=== PATIENT | female | born 1945 | race Caucasian/White ===

== ENCOUNTER 2017-07-15 12:21 | Emergency (ER) | payer MEDICARE ==
[2017-07-15 12:31] VITALS: BP 225/104
--- NOTE | 2017-07-15 12:41 | UC ---
UC General HPI - HPI Summary HPI Summary: 72 yo female with the acute onset of left sided weakness and trouble speaking on the evening of 07/11 no BATES no CP no palpitations no sob states she doesn't like to see doctors and hasn't seen one for years - History of Current Complaint Chief Complaint: UCAlteredMentalStatus Stated Complaint: STROKE SYMPTOMS Time Seen by Provider: 07/15/17 12:22 Hx Obtained From: Patient Onset/Duration: Sudden Onset, Lasting Days Onset Severity: Moderate Current Severity: Moderate Pain Intensity: 0 Associated Signs & Symptoms: Positive: Other - left sided - Allergy/Home Medications Allergies/Adverse Reactions: Allergies Allergy/AdvReac Type Severity Reaction Status Date / Time No Known Allergies Allergy Verified 07/15/17 12:39 Home Medications: Home Medications Arthritis 07/15/17 [History] NK [No Home Medications Reported] 07/15/17 [History Confirmed 07/15/17] PMH/Surg Hx/FS Hx/Imm Hx Previously Healthy: Yes - Surgical History Surgical History: None - Family History Known Family History: Positive: Cardiac Disease, Hypertension, Diabetes - Social History Alcohol Use: Daily Alcohol Amount: beer Substance Use Type: None Smoking Status (MU): Former Smoker Review of Systems Constitutional: Negative Skin: Negative Eyes: Negative ENT: Negative Respiratory: Negative Cardiovascular: Negative Gastrointestinal: Negative Genitourinary: Negative Motor: Negative Neurovascular: Negative Musculoskeletal: Negative Neurological: Weakness Psychological: Negative Is Patient Immunocompromised?: No All Other Systems Reviewed And Are Negative: Yes Physical Exam Triage Information Reviewed: Yes Appearance: Well-Appearing, No Pain Distress, Well-Nourished Vital Signs: Initial Vital Signs Temp 97.5 F 07/15/17 12:28 Pulse 115 07/15/17 12:28 Resp 20 07/15/17 12:28 BP 225/104 07/15/17 12:28 Pulse Ox 99 07/15/17 12:28 Vital Signs Reviewed: Yes Eyes: Positive: Conjunctiva Clear ENT: Positive: Hearing grossly normal. Negative: Nasal congestion, Nasal drainage, Trismus, Muffled voice, Hoarse voice Neck: Positive: Supple, Other: - no bruits Respiratory: Positive: Lungs clear, Normal breath sounds, No respiratory distress Cardiovascular: Positive: RRR, Tachycardia. Negative: No Murmur Abdomen Description: Positive: Nontender, No Organomegaly, Soft Musculoskeletal: Positive: ROM Intact, No Edema Neurological: Positive: Alert, Other: - left hemiplegia with mild left facial droop Psychological Exam: Normal Skin Exam: Normal Diagnostics - EKG Cardiac Rate: NL, Tachycardia Cardiac Rhythm: Sinus: Normal Ectopy: None - LVH with strain pattern, [facility] ST Segment: Non-Specific Course/Dx - Course Course Of Treatment: offerred EMS transport to the ER as the most prudent option. both she and her son refuse EMS tranport. son will drive. Dr. Horner aware - Differential Dx - Multi-Symptom Provider Diagnoses: probable CVA. Hypertension Discharge - Sign-Out/Discharge Documenting (check all that apply): Discharge - Discharge Plan Condition: Guarded Disposition: TRANS HIGHER LVL OF CARE FAC Referrals: No Primary Care Phys,NOPCP [Primary Care Provider] - Additional Instructions: To [facility] ER Dr. Horner is awaiting your arrival - Billing Disposition and Condition Condition: GUARDED Disposition: EMTALA
== END 2017-07-15 12:46 | disposition short-term general hospital (02) ==
LOC: UCEAST 12:21
DX: R53.1 Weakness (principal); R29.810 Facial weakness; G81.94 Hemiplegia, unspecified affecting left nondominant side; I10 Essential (primary) hypertension; Z87.891 Personal history of nicotine dependence
CPT/HCPCS: 93005; 99211; G0463

== ENCOUNTER 2017-07-15 13:07 | Inpatient (IN) | payer MEDICARE ==
[2017-07-15] MEDS ORDERED: hydrALAZINE IV* 20 MG/ML VIAL IV SLOW PU ONE (13:42)
[2017-07-15] MEDS ORDERED: NS 0.9% 1000 ML* 1,000 ML IV SCH (13:45)
[2017-07-15 14:08] LABS: ABS Basophils 0.1 10^3/ul (0-0.2); ABS Eosinophils 0 10^3/ul (0-0.6); ABS Lymphocytes 1.7 10^3/ul (1.0-4.8); ABS Monocytes 0.7 10^3/ul (0-0.8); ABS Neutrophils 6.9 10^3/ul (1.5-7.7); ABS Nucleated RBC 0 10^3/ul; Eosinophil % 0.3 % (0-6); Hematocrit 40 % (35-47); Hemoglobin 13.4 g/dl (12.0-16.0); Lymphocyte % 18.3 % (25-47); Mean Corpuscular HGB Conc 34 g/dl (31-36); Mean Corpuscular Hemoglobin 29 pg (27-31); Mean Corpuscular Volume 86 fL (80-97); Mean Platelet Volume 8.7 um3 (7.4-10.4); Nucleated Red Blood Cells % 0; Platelet Count 258 10^3/ul (150-450); Red Blood Count 4.59 10^6/ul (4.0-5.4); Red Cell Distribution Width 14 % (10.5-15); White Blood Count 9.3 10^3/ul (3.5-10.8)
[2017-07-15 14:16] LABS: INR 0.89 (0.77-1.02)
--- NOTE | 2017-07-15 14:24 | RAD ---
HISTORY: Left-sided weakness, slurred speech COMPARISONS: None TECHNIQUE: Multiple contiguous axial CT scans were obtained of the head without intravenous contrast. FINDINGS: HEMORRHAGE/INFARCT: There is no hemorrhage or acute infarct. MASSES/SHIFT: There is no mass or shift. EXTRA-AXIAL SPACES: There are no extra-axial fluid collections. SULCI AND VENTRICLES: The sulci and ventricles are normal in size and position for the patient's stated age. CEREBRUM: There is mild hypoattenuation of the periventricular and subcortical white matter. BRAINSTEM: There are no focal parenchymal abnormalities. CEREBELLUM: There are no focal parenchymal abnormalities. VESSELS: The vessels are grossly normal. PARANASAL SINUSES: The paranasal sinuses are clear. ORBITS: The orbits are unremarkable. BONES AND SOFT TISSUE: No bone or soft tissue abnormalities are noted. OTHER: None IMPRESSION: NO ACUTE INTRACRANIAL PATHOLOGY. MILD CHRONIC SMALL VESSEL ISCHEMIC CHANGES.
[2017-07-15 14:26] LABS: EGFR Non-African American 57.5 (>60)
[2017-07-15] MEDS ORDERED: Iodixanol* (CONTRAST) 320 MG/ML 100 ML SDV IV ONE (14:44)
[2017-07-15] MEDS ORDERED: Aspirin SUPP* 300 MG PR ONE (14:50)
[2017-07-15] MEDS ORDERED: Aspirin TAB* 325 MG PO ONE (14:51)
[2017-07-15] MEDS ORDERED: Acetaminophen TAB* 325 MG PO PRN (15:06)
[2017-07-15] MEDS ORDERED: Ondansetron INJ* 2 MG/ML VIAL IV PRN (15:06)
[2017-07-15] MEDS ORDERED: hydrALAZINE IV* 20 MG/ML VIAL IV SLOW PU PRN (15:14)
[2017-07-15] MEDS ORDERED: LORazepam INJ* 2 MG/ML 1 ML VIAL IV PUSH ONE (15:20)
[2017-07-15 16:00] LABS: Urine Appearance Clear; Urine Blood Negative (Negative); Urine Color Yellow; Urine Ketones Negative (Negative); Urine Protein Negative (Negative); Urine Specific Gravity 1.021 (1.010-1.030); Urine Urobilinogen Negative (Negative)
--- NOTE | 2017-07-15 16:25 | RAD ---
CPT II: CPT II Codes: 3100F INDICATION: Left-sided weakness and difficulty speaking COMPARISON: Same day CT of the brain that does not reveal any acute abnormalities. TECHNIQUE: A CT angiogram of the head and neck was performed with 80 cc of Visipaque 320. Contiguous axial sections were obtained from the thoracic inlet through the [place] of [place]. Images were reconstructed in the sagittal, coronal planes and in a 3-D volume rendered format. The distal cervical internal carotid artery diameter is used as the denominater for stenosis measurement. CTA NECK: The common and internal carotid arteries are patent without hemodynamically significant stenosis. Right: Below the carotid bulb the common carotid artery measures 6 mm in diameter. There is partially calcified mixed attenuation atherosclerosis at the carotid bulb narrowing the lumen to approximately 4 mm. This corresponds to approximately 33% degree stenosis. Left: Below the carotid bulb the common carotid artery measures 6 mm in diameter. There is partially calcified mixed attenuation atherosclerosis at the carotid bulb narrowing the lumen to approximately 4 mm. This corresponds to 33% degree stenosis. The vertebral arteries are patent without gross abnormality. CTA of the brain: The internal carotid, anterior and middle cerebral arteries appear are patent without high grade stenosis or occlusion. The vertebral, basilar and posterior cerebral arteries appear patent without high grade stenosis or occlusion. The [place] is complete with bilateral posterior communicating arteries identified. No focal luminal filling defect, aneurysm or vascular malformation is seen. NON-ARTERIAL FINDINGS: The left lobe of the thyroid there are 2 low-attenuation foci measuring 6 and 13 mm respectively. There are centrilobular emphysematous changes of the bilateral lung apices with a small degree of apical scarring. Mild degenerative changes of the cervical spine include loss of intervertebral disc height. IMPRESSION: 1. Mixed attenuation atherosclerosis of the bilateral carotid bulbs causes approximately 33% degree stenosis bilaterally. 2. There is no definite filling defect or other acute vascular abnormality identifiable within the limitations of CT angiography.
--- NOTE | 2017-07-15 16:45 | RAD ---
HISTORY: Left-sided weakness and facial droop COMPARISONS: Same day CTA of the head and neck TECHNIQUE: The following sequences were obtained of the head: Sagittal T1-weighted images, axial T2-weighted images, axial FLAIR images, axial susceptibility weighted images, axial T1-weighted images. Additionally, axial diffusion-weighted images were obtained with calculated apparent diffusion coefficients.. FINDINGS: HEMORRHAGE/INFARCT: There is no hemorrhage or acute infarct. MASSES/SHIFT: There is no mass or shift. EXTRA-AXIAL SPACES/MENINGES: There are no extra-axial fluid collections. SULCI AND VENTRICLES: The sulci and ventricles are normal in size and position for the patient's stated age. CEREBRUM: On the axial T2-weighted FLAIR images there are numerable subcentimeter T2 bright foci as well as increased signal in the periventricular white matter tracts. None of these correspond to increased signal on diffusion-weighted imaging to indicate acute focal infarction. BRAINSTEM: On diffusion-weighted imaging there is bright signal measuring up to 8 x 13 mm at the right thang (image 10). On the T2-weighted images there is bright signal at the right thang measuring up to 1 x 1.7 cm in the axial plane (image 10 of 30). CEREBELLUM: There are no focal parenchymal abnormalities. The cerebellar tonsils are normal in size and position. SELLA: The sella is normal. PINEAL: The pineal region is clear. CP ANGLE/TEMPORAL BONES: The labyrinthine structures are grossly normal. VESSELS: Normal flow-voids are noted within the visualized vertebral vasculature. DIFFUSION ABNORMALITIES: There are no diffusion abnormalities. PARANASAL SINUSES/MASTOIDS: The paranasal sinuses are clear. ORBITS: The orbits are unremarkable. BONES AND SOFT TISSUE: No bone or soft tissue abnormalities are noted. IMPRESSION: 1. MR FINDINGS ARE CONSISTENT WITH ACUTE FOCAL INFARCTION INVOLVING THE RIGHT THANG. 2. ADDITIONAL FINDINGS ARE CONSISTENT WITH CHRONIC MICROVASCULAR DISEASE.
--- NOTE | 2017-07-15 20:15 | ED ---
Angelo Quesada Jennifer, scribed for Florentin Ribera on 07/15/17 at 1330 . Neurological HPI - HPI Summary HPI Summary: The patient is a 72 year old female who was sent by CC for left sided weakness and difficulty speaking since four days ago. The patient reports that four nights ago at about 22:00, she had difficulty speaking. She went to sleep and woke up with continued difficulty speaking and left sided weakness. She explains that the symptoms have gotten worse, and she now has more difficulty with movement because she feels so weak. The patient adds that she has not seen a PMD in 35 years. - History of Current Complaint Chief Complaint: EDNeurologicalDeficit Stated Complaint: POSSIBLE STROKE-CC TRANSFER Time Seen by Provider: 07/15/17 13:14 Hx Obtained From: Patient Onset/Duration: Sudden Onset, Started days ago - 4 days, Still Present, Worse Since - yesterday Timing: Constant Onset Severity: Mild Current Severity: Moderate Neurological Deficit Location: LUE, LLE Pain Intensity: 0 Pain Scale Used: 0-10 Numeric Character: Other: - left sided weakness, difficulty with speech Aggravating: Nothing Alleviating: Nothing Associated Signs and Symptoms: Positive: Weakness - left sided, Impaired Speech - Allergy/Home Medications Allergies/Adverse Reactions: Allergies Allergy/AdvReac Type Severity Reaction Status Date / Time No Known Allergies Allergy Verified 07/15/17 13:09 PMH/Surg Hx/FS Hx/Imm Hx Endocrine/Hematology History: Denies: Hx Diabetes Cardiovascular History: Denies: Hx Hypertension Musculoskeletal History: Reports: Hx Arthritis - Cancer History Cancer Type, Location and Year: arthritis Infectious Disease History: No Infectious Disease History: Denies: Traveled Outside the [place] in Last 30 Days - Family History Known Family History: Positive: Cardiac Disease, Hypertension, Diabetes - Social History Alcohol Use: Daily Alcohol Amount: 2 beers daily Substance Use Type: Reports: None Smoking Status (MU): Former Smoker Review of Systems Negative: Fever Positive: Weakness - left sided, Slurred Speech All Other Systems Reviewed And Are Negative: Yes Physical Exam - Summary Physical Exam Summary: Appearance: Well appearing, Skin: warm, dry, reflects adequate perfusion Head/face: normal Eyes: EOMI, NANETTE ENT: normal Neck: supple, non-tender Respiratory: CTA, breath sounds present Cardiovascular: RRR, pulses symmetrical ~ Abdomen: non-tender, soft Bowel: present Musculoskeletal: pulse present b/l Neuro: A&Ox3 with left hemiplegia. Triage Information Reviewed: Yes Vital Signs On Initial Exam: Initial Vitals Temp Pulse Resp BP Pulse Ox 97.6 F 105 20 222/98 98 07/15/17 13:09 07/15/17 13:09 07/15/17 13:09 07/15/17 13:09 07/15/17 13:09 Vital Signs Reviewed: Yes Diagnostics - Vital Signs Vital Signs Temp Pulse Resp BP Pulse Ox 07/15/17 13:09 97.6 F 105 20 222/98 98 - Laboratory Lab Results: Lab Results 07/15/17 07/15/17 07/15/17 Range/Units 14:00 14:00 14:00 WBC 9.3 (3.5-10.8) 10^3/ul RBC 4.59 (4.0-5.4) 10^6/ul Hgb 13.4 (12.0-16.0) g/dl Hct 40 (35-47) % MCV 86 (80-97) fL MCH 29 (27-31) pg MCHC 34 (31-36) g/dl RDW 14 (10.5-15) % Plt Count 258 (150-450) 10^3/ul MPV 8.7 (7.4-10.4) um3 Neut % (Auto) 73.5 (38-83) % Lymph % (Auto) 18.3 L (25-47) % Ness % (Auto) 7.3 H (0-7) % Eos % (Auto) 0.3 (0-6) % Baso % (Auto) 0.6 (0-2) % Absolute Neuts (auto) 6.9 (1.5-7.7) 10^3/ul Absolute Lymphs (auto) 1.7 (1.0-4.8) 10^3/ul Absolute Monos (auto) 0.7 (0-0.8) 10^3/ul Absolute Eos (auto) 0 (0-0.6) 10^3/ul Absolute Basos (auto) 0.1 (0-0.2) 10^3/ul Absolute Nucleated RBC 0 10^3/ul Nucleated RBC % 0 INR (Anticoag Therapy) 0.89 (0.77-1.02) APTT 30.9 (26.0-36.3) seconds Sodium 137 L (139-145) mmol/L Potassium 3.9 (3.5-5.0) mmol/L Chloride 101 (101-111) mmol/L Carbon Dioxide 25 (22-32) mmol/L Anion Gap 11 (2-11) mmol/L BUN 16 (6-24) mg/dL Creatinine 0.96 H (0.51-0.95) mg/dL Est GFR ( Amer) 73.9 (>60) Est GFR (Non-Af Amer) 57.5 (>60) BUN/Creatinine Ratio 16.7 (8-20) Glucose 149 H (70-100) mg/dL Calcium 9.6 (8.6-10.3) mg/dL Total Bilirubin 0.40 (0.2-1.0) mg/dL AST 25 (13-39) U/L ALT 21 (7-52) U/L Alkaline Phosphatase 57 (34-104) U/L Total Protein 6.8 (6.4-8.9) g/dL Albumin 4.1 (3.2-5.2) g/dL Globulin 2.7 (2-4) g/dL Albumin/Globulin Ratio 1.5 (1-3) Result Diagrams: 07/15/17 14:00 07/15/17 14:00 Lab Statement: Any lab studies that have been ordered have been reviewed, and results considered in the medical decision making process. - CT Brain CT CT Interpretation: No Acute Changes - NO ACUTE INTRACRANIAL PATHOLOGY. MILD CHRONIC SMALL VESSEL ISCHEMIC CHANGES. Dr. Ribera has reviewed this report. CT Interpretation Completed By: Radiologist Head CTA CT Interpretation: Positive (See Comments) - 1. Mixed attenuation atherosclerosis of the bilateral carotid bulbs causes approximately 33% degree stenosis bilaterally. 2. There is no definite filling defect or other acute vascular abnormality identifiable within the limitations of CT angiography. Dr. Ribera has reviewed this report. CT Interpretation Completed By: Radiologist - EKG 13:42 Cardiac Rate: NL EKG Rhythm: Sinus Rhythm EKG Comparison: No Significant Change - Additional Comments Diagnostic Additional Comments: Brain MRI. Interpreted by a radiologist. IMPRESSION: 1. MR FINDINGS ARE CONSISTENT WITH ACUTE FOCAL INFARCTION INVOLVING THE RIGHT THANG. 2. ADDITIONAL FINDINGS ARE CONSISTENT WITH CHRONIC MICROVASCULAR DISEASE. Dr. Ribera has reviewed this report. NIH Scale - NIH Scale Level of Consciousness: Alert/Keenly Responsive Ask Patient the Month and His/Her Age: Both Correct Ask Pt to Open/Close Eyes and Acquisition Cost Estimator/Release Non-Paretic Hand: Both Correctly Best Gaze (Only Horizontal Eye Movement): Normal Visual Field Testing: No Visual Loss Facial Paresis-Pt to Smile & Close Eyes or Grimace Symmetry: Partial Paralysis Motor Function - Right Arm: No Drift-Holds 10 Seconds Motor Function - Left Arm: Drifts LT 10 seconds Motor Function - Right Leg: No Drift-Holds 10 Seconds Motor Function - Left Leg: Drifts LT 10 seconds Limb Ataxia-Must be out of Proportion to Weakness Present: Present in One Limb Sensory (Use Pinprick to Test Arms/Legs/Trunk/Face): Normal Best Language (Describe Picture, Name Items): Some Loss Dysarthria (Read Several Words): Slurs Some Words Extinction and Inattention: No Abnormality Total Score: 7 Course/Dx - Course Course Of Treatment: The patient is a 72 year old female who was sent by for left sided weakness and difficulty speaking since four days ago. Bloodwork and urinalysis were obtained. EKG, CT Brain were obtained. The patient is diagnosed with CVA and hypertension. The patient was admitted to [facility] by Dr. Muñoz. - Differential Dx Differential Diagnoses Neuro: Positive: Cerebrovascular Accident, Hematoma, Intracranial Bleed, Transient Ischemic Attack - Diagnoses Provider Diagnoses: CVA (cerebral vascular accident), HTN (hypertension) - Physician Notifications Discussed Care Of Patient With: Kailee Muñoz Time Discussed With Above Provider: 14:08 Instructed by Provider To: Admit As Inpatient - I also consulted with Dr. Jenkins , neurology, who recommended that I do MRI Brain and CTA Head/Neck. - Critical Care Time Critical Care Time: 30-74 min Discharge - Sign-Out/Discharge Documenting (check all that apply): Discharge - Discharge Plan Condition: Good Disposition: ADMITTED TO [facility] - Billing Disposition and Condition Condition: GOOD Disposition: HOSP-[facility] The documentation as recorded by the Angelo neal Jennifer accurately reflects the service I personally performed and the decisions made by , Florentin Ribera.
--- NOTE | 2017-07-15 20:49 | HP ---
CC: Dr. Jenkins * HISTORY AND PHYSICAL: DATE OF ADMISSION: 07/15/17 PRIMARY CARE PROVIDER: None. CONSULTING NEUROLOGIST: Dr. Jenkins. ATTENDING PHYSICIAN WHILE IN THE HOSPITAL: Kailee Muñoz DO * (report dictated by Wong Smith NP). CHIEF COMPLAINT: 1. Left-sided weakness. 2. Slurred speech. 3. Facial drooping. HISTORY OF PRESENT ILLNESS: Ms. De Paz is a 72-year-old female patient who really has not had any medical care for some time. She only has a history of C- section and tonsillectomy. To her knowledge, she has no medical problems. She says that she only takes a probiotic. She said she noticed on Friday, she had an episode where she was noticing trouble with facial droop and her speech. Her family had noticed this, but she declined coming in to the hospital to be evaluated. She said that she was anxious about what it could be and she thought that hopefully will go away on its own; however, the patient says that things have got progressively worse. She started noticing that she was having left arm weakness, worsening facial droop, worsening trouble with speech. She says that she was concerned because she just was not getting any better. Her son was concerned today because she was much worse than what she was over the weekend and he decided to bring her into the hospital. She came in to the ED today. She denies any recent fevers, chills. No nausea. No vomiting. She denies having any headache. No visual disturbances reported to me. She is reporting the left-sided weakness, the trouble with her speech and facial drooping. She says that she is left-handed, although she does write with her right hand. She denies having any nausea, vomiting, or any diarrhea. She came in to the ED and was evaluated. There was concern for a possible stroke that happened several days ago. We are asked to evaluate for admission. PAST MEDICAL HISTORY: She is denying. PAST SURGICAL HISTORY: She is admitting to and tonsillectomy only. MEDICATIONS: Home meds include probiotic one capsule p.o. daily. ALLERGIES TO MEDICATIONS: Include no known drug allergies. FAMILY HISTORY: She says both her parents had cancers. Her mother had a history of high blood pressures as well. SOCIAL HISTORY: She is a former smoker. She quit 35 years ago. She does drink 2 beers a day. She lives with her son. Surrogate decision maker is her son. REVIEW OF SYSTEMS: There is no documented fever. She denies having any significant weight change. There was no double vision. She denies having any ear discharge. There is no rhinorrhea. No sore throat No thyroid enlargement. She denies having any chest pain. There is no orthopnea. There is no nocturnal dyspnea. She denies having any abdominal pain. There was no nausea. No vomiting. No dysuria. No frequency. There was no seizure. She denies having any loss of consciousness. No pruritus and no skin ulcerations. Review of 14-systems completed, all others negative. PHYSICAL EXAMINATION GENERAL: At this time, Ms. De Paz is a 72-year-old female patient. She is sitting on the ED stretcher. She does not appear to be in any acute distress. VITAL SIGNS: Blood pressure 176/50, pulse 93, respirations 20, O2 sat 96%, temperature 97.6. HEENT: Head: Atraumatic, normocephalic. Eyes: EOMs intact. Sclerae are anicteric and not pale. Throat: Oral mucosa appears to be moist. No oropharyngeal erythema. NECK: Supple. LUNGS: Clear to auscultation. No wheezes, rales, or rhonchi. HEART: Sounds S1, S2. Regular rate and rhythm. No murmurs, rubs, or gallops. ABDOMEN: Soft, flat, and nontender. Bowel sounds are present. EXTREMITIES: Pulses were 2+ throughout. She is able to move the right side with 5/5 strength, left side upper extremity is about 3/5 strength, lower extremity is about 3/5 strength as well. NEUROLOGICAL: She is awake. She is alert. Her speech is slurred, but it is not delayed. There is no aphasia that I could elicit. She does have a facial droop. In addition to this, she is unable to raise the arms on the left side. There is significant amount of weakness. She does have a pronator drift. She has drift to the left leg as well. There is weakness to the left side compared to the right. [id number], she has limb ataxia to the left side. Her peripheral visual smith are intact at this point. EOMs are intact. Her pupils were equal and reactive. There were no other gross focal deficits. SKIN: Intact. DIAGNOSTIC STUDIES/LAB DATA: WBC of 9.3, RBC of 4.59, hemoglobin 13.4, hematocrit of 40, platelet count of 258. The INR was 0.89. PTT of 30.9. Sodium was 137, potassium of 3.9, chloride of 101, bicarb 25, BUN 16, creatinine of 0.96, glucose 149, calcium 9.6. Total bili 0.4, AST 25, ALT 21, alk phos 7, albumin of 4.1. She had imaging here in the ED with starting of the brain CT, which revealed no acute intracranial pathology, mild chronic small vessel ischemic changes. She had an EKG obtained today showing a sinus tachycardia with rate of 103. No ST elevations or T-wave inversions were noted. No previous for comparison. Old medical records were reviewed. ASSESSMENT AND PLAN: Ms. De Paz is a 72-year-old female patient coming in to the ED today with complaints of left-sided weakness, slurred speech, and a facial droop. On evaluation today, there was concern for cerebrovascular accident. She will be admitted under inpatient status for: 1. Cerebrovascular accident. At this point, she did pass her bedside swallow evaluation. I will place her on baby aspirin and I will order PT and OT as well. I will also order an MRI of the brain, CTA of the head and neck, which has been ordered. We will order an echo with bubble study. We will get frequent neuro checks every 2 hours. Start her on a baby aspirin. Check her lipids and A1c. We will place her on telemetry to monitor for any arrhythmias and Neurology has been consulted and we will continue to follow closely. 2. Hypertension. Again, the blood pressure when she came in was 220, it responded nicely to hydralazine. I am going to try to keep her systolics less than 180. We will need to consider starting her on p.o. antihypertensives. I am going to wait to do this until we have CTA head and neck back and the MRIs back probably in the next 24 hours. We will consider starting some antihypertensive for long-term management. 3. DVT prophylaxis: We will place her on heparin and SCDs. Again, these symptoms started on Friday, chances of hemorrhagic conversion are low at this point. I did touch base with Dr. Jenkins about this. Again, she was in agreement heparin should be safe at this point. So, we will go ahead and put her on heparin subcu for DVT prophylaxis and SCDs. 4. Fluids, electrolytes and nutrition: She can have a heart-healthy diet. 5. Code status is full code. TIME SPENT: On admission was 60 minutes, greater than half of the time was spent [id number] with the patient obtaining my history and physical, other half of the time was spent going over the plan of care with the patient and implementing the plan of care. I did discuss the plan of care with my attending, Dr. Muñoz, she is in agreement. WONG SMITH, ZACHERY [id number]/CPS #: [id number] [id number]
[2017-07-15] MEDS: Heparin VIAL(*) 5000 UNITS/ML VIAL (FIVE THOUSAND) SUBCUT SCH (22:29)
[2017-07-16] MEDS: Heparin VIAL(*) 5000 UNITS/ML VIAL (FIVE THOUSAND) SUBCUT SCH ×3 (05:41→22:27)
[2017-07-16 07:22] LABS: ABS Basophils 0.1 10^3/ul (0-0.2); ABS Eosinophils 0.3 10^3/ul (0-0.6); ABS Lymphocytes 3.1 10^3/ul (1.0-4.8); ABS Monocytes 0.9 10^3/ul (0-0.8); ABS Neutrophils 4.9 10^3/ul (1.5-7.7); ABS Nucleated RBC 0 10^3/ul; Eosinophil % 2.7 % (0-6); Hematocrit 41 % (35-47); Hemoglobin 13.6 g/dl (12.0-16.0); Lymphocyte % 33.6 % (25-47); Mean Corpuscular HGB Conc 33 g/dl (31-36); Mean Corpuscular Hemoglobin 29 pg (27-31); Mean Corpuscular Volume 87 fL (80-97); Mean Platelet Volume 8.8 um3 (7.4-10.4); Nucleated Red Blood Cells % 0.1; Platelet Count 273 10^3/ul (150-450); Red Blood Count 4.69 10^6/ul (4.0-5.4); Red Cell Distribution Width 14 % (10.5-15); White Blood Count 9.2 10^3/ul (3.5-10.8)
[2017-07-16 07:31] LABS: INR 0.9 (0.77-1.02)
[2017-07-16 07:49] LABS: EGFR Non-African American 66.1 (>60)
[2017-07-16] MEDS: Aspirin 81 mg CHEW TAB* 81 MG TAB.CHEW PO SCH (10:01)
--- NOTE | 2017-07-16 12:19 | PN ---
Subjective Date of Service: 07/16/17 Interval History: Patient feels she is better today. Speech is better. No new c/o. Objective Active Medications: Acetaminophen (Tylenol Tab*) 650 mg PO Q4H PRN PRN Reason: FEVER/PAIN Aspirin (Aspirin Low Dose Tab*) 81 mg PO DAILY [facility] Last Admin: 07/16/17 10:01 Dose: 81 mg Atorvastatin Calcium (Lipitor*) 40 mg PO 1700 [facility] Heparin Sodium (Porcine) (Heparin Vial(*)) 5,000 units SUBCUT Q8HR [facility] Last Admin: 07/16/17 05:41 Dose: 5,000 units Ondansetron HCl (Zofran Inj*) 4 mg IV Q6H PRN PRN Reason: NAUSEA Vital Signs - 8 hr 07/16/17 07/16/17 07/16/17 04:27 07:48 08:00 Temperature 97.8 F Pulse Rate 65 84 Respiratory 15 16 Rate Blood Pressure 169/62 172/77 (mmHg) O2 Sat by Pulse Oximetry 07/16/17 08:06 Temperature Pulse Rate Respiratory Rate Blood Pressure (mmHg) O2 Sat by Pulse 98 Oximetry Oxygen Devices in Use Now: None Appearance: Alert, in a chair. In good spirits. Looks comfortable. Eyes: No Scleral Icterus Neck: NL Appearance and Movements; NL JVP, No Thyroid Enlargement, Masses Respiratory: Symmetrical Chest Expansion and Respiratory Effort, Clear to Auscultation, Clear to Percussion Cardiovascular: NL Sounds; No Murmurs; No JVD, RRR, No Edema, - Extremities: No Edema, No Clubbing, Cyanosis, - Skin: No Rash or Ulcers, No Nodules or Sclerosis, - Neurological: Alert and Oriented x 3 - Mild L facial droop. Speech clear, sl hesitant. 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 L leg moves well. No tremor. , NL Sensation Result Diagrams: 07/16/17 06:45 07/16/17 06:45 Additional Lab and Data: Lab Results 07/15/17 07/15/17 07/15/17 Range/Units 14:00 14:00 14:00 WBC 9.3 (3.5-10.8) 10^3/ul RBC 4.59 (4.0-5.4) 10^6/ul Hgb 13.4 (12.0-16.0) g/dl Hct 40 (35-47) % MCV 86 (80-97) fL MCH 29 (27-31) pg MCHC 34 (31-36) g/dl RDW 14 (10.5-15) % Plt Count 258 (150-450) 10^3/ul MPV 8.7 (7.4-10.4) um3 Neut % (Auto) 73.5 (38-83) % Lymph % (Auto) 18.3 L (25-47) % Andrew % (Auto) 7.3 H (0-7) % Eos % (Auto) 0.3 (0-6) % Baso % (Auto) 0.6 (0-2) % Absolute Neuts (auto) 6.9 (1.5-7.7) 10^3/ul Absolute Lymphs (auto) 1.7 (1.0-4.8) 10^3/ul Absolute Monos (auto) 0.7 (0-0.8) 10^3/ul Absolute Eos (auto) 0 (0-0.6) 10^3/ul Absolute Basos (auto) 0.1 (0-0.2) 10^3/ul Absolute Nucleated RBC 0 10^3/ul Nucleated RBC % 0 INR (Anticoag Therapy) 0.89 (0.77-1.02) APTT 30.9 (26.0-36.3) seconds Sodium 137 L (139-145) mmol/L Potassium 3.9 (3.5-5.0) mmol/L Chloride 101 (101-111) mmol/L Carbon Dioxide 25 (22-32) mmol/L Anion Gap 11 (2-11) mmol/L BUN 16 (6-24) mg/dL Creatinine 0.96 H (0.51-0.95) mg/dL Est GFR ( Amer) 73.9 (>60) Est GFR (Non-Af Amer) 57.5 (>60) BUN/Creatinine Ratio 16.7 (8-20) Glucose 149 H (70-100) mg/dL Calcium 9.6 (8.6-10.3) mg/dL Total Bilirubin 0.40 (0.2-1.0) mg/dL AST 25 (13-39) U/L ALT 21 (7-52) U/L Alkaline Phosphatase 57 (34-104) U/L Total Protein 6.8 (6.4-8.9) g/dL Albumin 4.1 (3.2-5.2) g/dL Globulin 2.7 (2-4) g/dL Albumin/Globulin Ratio 1.5 (1-3) Assess/Plan/Problems-Billing Assessment: - Patient Problems (1) CVA (cerebral vascular accident) Current Visit: Yes Status: Acute Code(s): I63.9 - CEREBRAL INFARCTION, UNSPECIFIED SNOMED Code(s): 796894903 Comment: R pontine CVA. Continue PT/OT, ASA. Start atorvastatin 40 mg daioy 07/16. (2) HTN (hypertension) Current Visit: Yes Status: Acute Code(s): I10 - ESSENTIAL (PRIMARY) HYPERTENSION SNOMED Code(s): 64486444 Comment: Start lisinopril 07/17.
--- NOTE | 2017-07-16 12:32 | ECHO ---
Patient: EZEQUIEL RODRÍGUEZ [facility] Rec#: [id number] : 1945 Date: 07/16/2017 Age: 72y Height: 165.1 cm / 65.0 in Weight: 68.04 kg / 150.0 lbs Sex: F BSA: 1.75 Room#: [facility] Admit Date#: 07/15/2017 Type: Inpatient Referring: Wong Smith NP Reading: Jacki Oakes MD Coil Winder Hand: Dianna Gao [facility] Transthoracic Echocardiogram Indication: CVA BP: 169/62 HR: 74 Rhythm: NSR Findings History: Former smoker,HTN. Technical Comments: The study is technically limited due to the patient's smoking history. Completed at 1026. Left Ventricle: The left ventricular chamber size is normal. Moderate to severe concentric left ventricular hypertrophy is observed. Global left ventricular wall motion and contractility are within normal limits. There is normal left ventricular systolic function. The estimated ejection fraction is 60-65%. Abnormal left ventricular diastolic function is observed. The left ventricular diastolic filling pattern is consistent with elevated left ventricular end-diastolic pressure. Left Atrium: The left atrium is mildly dilated. Right Ventricle: The right ventricular cavity size is normal. The right ventricular global systolic function is normal. Right Atrium: The right atrial cavity size is normal. There is no patent foramen ovale visualized. There is no evidence of patent foramen ovale shunting. A patent foramen ovale is not demonstrated with color Doppler and agitated contrast. Aortic Valve: The aortic valve leaflets are mildly thickened. There is evidence of aortic sclerosis without stenosis. There is a trace of aortic regurgitation. There is no evidence of aortic stenosis. Mitral Valve: The mitral valve leaflets appear normal. There is mitral annular calcification. There is trace to mild mitral regurgitation. There is no evidence of mitral stenosis. Tricuspid Valve: The tricuspid valve leaflets are normal. There is trace tricuspid regurgitation. Unable to estimate the right ventricular systolic pressure. There is no tricuspid stenosis. Pulmonic Valve: The pulmonic valve appears normal. There is a trace pulmonic regurgitation. There is no pulmonic stenosis. Pericardium: A pericardial fat pad is visualized. Aorta: There is no dilatation of the ascending aorta. There is no dilatation of the aortic arch. There is no dilation of the aortic root. Pulmonary Artery: The main pulmonary artery appears normal. Venous: The inferior vena cava appears normal in size. There is a greater than 50% respiratory change in the inferior vena cava dimension. Contrast: Normal saline was used as contrast for the bubble study. Intravenous contrast was used to help determine presence of intracardiac shunting. Conclusions Moderate to severe concentric left ventricular hypertrophy is observed. There is normal left ventricular systolic function. The estimated ejection fraction is 60-65%. Abnormal left ventricular diastolic function is observed. The left ventricular diastolic filling pattern is consistent with elevated left ventricular end-diastolic pressure. The right ventricular global systolic function is normal. A patent foramen ovale is not demonstrated with color Doppler and agitated contrast. There is evidence of aortic sclerosis without stenosis. There is a trace of aortic regurgitation. There is trace to mild mitral regurgitation. No prior echo to compare. Measurements Name Value Normal Range RVIDd (AP) 2D 2.4 cm (0.9 - 2.6) RVDdMajor (2D) 2.8 cm (2.2 - 4.4) RAd ISD 4CH 4 cm (3.4 - 4.9) RA (A4C)W 2.1 cm (2.9 - 4.6) IVSd (2D) 1.6 cm (0.6 - 1) LVPWd (2D) 1.7 cm (0.6 - 1) LVIDd (2D) 3.2 cm (3.6 - 5.4) LVIDs (2D) 2.3 cm - LV FS (2D) 29 % (25 - 45) Aortic Annulus 1.9 cm (1.4 - 2.6) Ao root diameter (2D) 3.1 cm (2.1 - 3.5) Ascending Ao 3.1 cm (2.1 - 3.4) Aortic arch 2.9 cm (1.8 - 3.4) Descending Ao 0.6 cm - LA dimension (AP) 2D 4 cm (2.3 - 3.8) LAd ISD 4CH 4.2 cm (2.9 - 5.3) LA ISD 4CH W 3.7 cm (2.5 - 4.5) Name Value Normal Range LA ESV SP 4CH (A/L) 26 ml - LA ESV SP 2CH (A/L) 44 ml - LA ESV BP (A/L) 35 ml - LA ESV BP (A/L) index 20.07 ml/m2 - LA ESV SP 4CH (MOD) 24 ml - LA ESV SP 2CH (MOD) 41 ml - Name Value Normal Range MV E-wave Vmax 1.1 m/sec - MV deceleration time 256 msec - MV A-wave Vmax 1.2 m/sec - MV E:A ratio 0.86 ratio - LV septal e' Vmax 0.05 m/sec - LV lateral e' Vmax 0.07 m/sec - LV E:e' septal ratio 22 ratio - LV E:e' lateral ratio 15.71 ratio - Name Value Normal Range AV Vmax 2 m/sec - AV VTI 48.6 cm - AV peak gradient 15.72 mmHg - AV mean gradient 9.46 mmHg - LVOT Vmax 1.4 m/sec - LVOT VTI 36.6 cm - LVOT peak gradient 7.54 mmHg - LVOT mean gradient 4.04 mmHg - Name Value Normal Range IVC diameter 1 cm - Name Value Normal Range PV Vmax 1 m/sec - PV peak gradient 3.83 mmHg -
[2017-07-16] MEDS: Atorvastatin* 40 MG TAB PO SCH (17:26)
[2017-07-16] MEDS ORDERED: Lisinopril TAB* 5 MG PO ONE (17:48)
--- NOTE | 2017-07-16 20:40 | CONS ---
NEUROLOGY CONSULTATION: DATE OF CONSULT: 07/16/17 REQUESTING PROVIDER: Wong Smith NP REASON FOR CONSULT: Stroke. HISTORY OF PRESENT ILLNESS: Miri De Paz is a 72-year-old woman, who does not seek regular medical care and reports a history only of some arthritis in her left knee and her left hand, who presented to the emergency department with subacute development of left-sided weakness. She reports that Friday she developed difficulty speaking and was hoping it would go away. Over the weekend , she developed difficulty with her left hand, but attributed to her arthritis. She could not close her hand normally. This progressed to more dense left arm weakness as well as facial droop and then she began having difficulty with her left leg and her son brought her in yesterday for evaluation. Her blood pressures were noted to be very high when she was initially in the emergency department, it is high as 223/92. Her NIH Stroke Scale was around 7 and it was suspected that she had a cerebrovascular event. She denies any difficulty swallowing or changes in her vision. She denies any falls at home. She states she lives with her son, but he works during the day. She feels that she has improved since her admission yesterday in terms of her left-sided weakness. She is hopeful that she will be able to go home with outpatient physical therapy. Prior to her admission, the only medication she was taking was a probiotic. She has not had any routine surveillance such as mammograms or colonoscopy. PAST MEDICAL HISTORY: Arthritis, left knee and left hand. HOME MEDICATIONS: Probiotic. ALLERGIES: No known drug allergies. FAMILY HISTORY: Father had prostate and lung cancer and mother had uterine cancer, which spread to the bones. There is also a history of heart attack in the family, but no history of stroke. SOCIAL HISTORY: She quit smoking 35 years ago. She drinks alcohol, but not excessively. She denies any drug use. She lives with her son in a 2-story home. REVIEW OF SYSTEMS: She denies any recent systemic illness. She denies any new skin rashes, chest pain, breathing difficulties, GI symptoms. Otherwise, as per HPI. PHYSICAL EXAM: Vital Signs: Temperature 97.8, blood pressure 172/77, heart rate 84, oxygen saturation 98% on room air. On general examination, she is in no acute distress. She is sitting in a chair by her bedside. Her daughter and 8 month old grandson are present. Her heart is in a regular rate and rhythm. There is a systolic ejection murmur heard best at the right upper sternal border, which radiates to the carotids. Lungs were clear to auscultation bilaterally. There is no significant lower extremity edema. Her skin is intact. On neurologic examination, she is fully awake, alert, and oriented. She is able to describe [employer] picture accurately and reads sentences accurately. She has mild dysarthria. Pupils are equal, round, and reactive from 3 to 2 mm bilaterally. Versions are full without nystagmus. Hickey are full to confrontation. Facial sensation is full and symmetric. She has left lower facial droop, but good activation with smile. Hearing is intact to voice. The palate elevates symmetrically and the tongue appears midline. On motor examination, she has normal bulk in the upper and lower extremities with increased tone in the left arm and leg. Strength is full in the right extremities. She has grade 2 strength throughout of the left upper extremity. Strength is 3 in the left hip flexor, 4+ in the left knee extensor, 4- in the knee flexor, and about a 2 in the left ankle dorsiflexor. Sensation is intact to pinprick in the upper and lower extremities. There is no ataxia on finger-to -nose on the right and it is not testable because of weakness on the left. Reflexes are 2+ in the right arm and leg, 3+ in the left arm and leg with upgoing toe on the left. I did not attempt to ambulate her. DIAGNOSTIC STUDIES/LAB DATA: Her CBC is overall unremarkable. The chemistry panel shows sodium of 138, hemoglobin A1c of 5.7. Triglycerides 147, cholesterol 229, LDL 133, HDL of 67.1. Urinalysis was negative. A noncontrast brain CT was negative for any obvious acute process. Her CT angiogram of the head and neck did not show any significant atherosclerotic disease, no occlusion, no significant stenosis, but incidentally noted were 2 low attenuation foci in the left lobe of the thyroid and emphysematous changes in the upper lungs bilaterally. MRI of the brain was personally reviewed and shows diffusion restriction in the right paramedian kendall. In addition, there is evidence of small vessel disease in the bilateral cerebral hemispheres. Transthoracic echocardiogram showed [id number] concentric LVH with an EF of 60% to 65%. There is abnormal left ventricular diastolic function and elevated left ventricular end diastolic pressure. There is no PFO. IMPRESSION AND PLAN: Miri De Paz is a 72-year-old woman presenting with left- sided weakness, who has had a right pontine stroke. She was very hypertensive on her admission and has remained so. The stroke likely began on Friday and she presented subacutely; therefore, she was not a candidate for tPA. I suspect that she has had unrecognized hypertension based on the distribution of her stroke as well as her findings on her echocardiogram as the most likely etiology for this stroke. She has been started on aspirin 81 mg daily and should continue this. Given her LDL of 133, she has also been started on atorvastatin 40 mg daily. Similarly today, we are going to start her on lisinopril 5 mg daily. I emphasized the importance of rehab with her as she seems quite set on going home and pursuing outpatient physical therapy. However , I think at this point, she appears weak enough and this is probably not the wisest choice for her. I would like to have her evaluated by the [facility] and I have put in a consult for this. In the long-term, she will need to establish with a PCP and should have routine preventative care such as mammogram and colonoscopy. Thank you for this consultation. [id number]/[facility] #: [id number] HERACLIO
[2017-07-17] MEDS: Heparin VIAL(*) 5000 UNITS/ML VIAL (FIVE THOUSAND) SUBCUT SCH ×3 (05:37→21:30)
[2017-07-17] MEDS: Aspirin 81 mg CHEW TAB* 81 MG TAB.CHEW PO SCH (08:16)
[2017-07-17] MEDS: Lisinopril TAB* 5 MG PO SCH (08:16)
--- NOTE | 2017-07-17 14:49 | PN ---
Subjective Date of Service: 07/17/17 Interval History: No new c/o. Patient somewhat disappointed in the pace of her recovery. Objective Active Medications: Acetaminophen (Tylenol Tab*) 650 mg PO Q4H PRN PRN Reason: FEVER/PAIN Aspirin (Aspirin Low Dose Tab*) 81 mg PO DAILY [facility] Last Admin: 07/17/17 08:16 Dose: 81 mg Atorvastatin Calcium (Lipitor*) 40 mg PO 1700 [facility] Last Admin: 07/16/17 17:26 Dose: 40 mg Heparin Sodium (Porcine) (Heparin Vial(*)) 5,000 units SUBCUT Q8HR [facility] Last Admin: 07/17/17 05:37 Dose: 5,000 units Lisinopril (Prinivil Tab*) 5 mg PO DAILY [facility] Last Admin: 07/17/17 08:16 Dose: 5 mg Ondansetron HCl (Zofran Inj*) 4 mg IV Q6H PRN PRN Reason: NAUSEA Vital Signs - 8 hr 07/17/17 07/17/17 07/17/17 07:41 08:00 11:18 Temperature 97.7 F 97.6 F Pulse Rate 78 65 Respiratory 16 16 16 Rate Blood Pressure 152/73 139/54 (mmHg) O2 Sat by Pulse 97 98 Oximetry 07/17/17 14:10 Temperature 97.5 F Pulse Rate 66 Respiratory 20 Rate Blood Pressure 178/82 (mmHg) O2 Sat by Pulse 97 Oximetry Oxygen Devices in Use Now: None Appearance: Alert, partly up in bed. In good spirits. Looks comfortable. Eyes: No Scleral Icterus Respiratory: Symmetrical Chest Expansion and Respiratory Effort, Clear to Auscultation, Clear to Percussion Cardiovascular: NL Sounds; No Murmurs; No JVD, RRR, No Edema Extremities: No Edema, No Clubbing, Cyanosis, - Skin: No Rash or Ulcers, No Nodules or Sclerosis, - Neurological: Alert and Oriented x 3, NL Sensation - Some difficulty word- finding. No tremor. 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 No tremor. , NL Muscle Strength and Tone, - - L arm 2-3/5 strength. Speech sl halting Result Diagrams: 07/16/17 06:45 07/16/17 06:45 Additional Lab and Data: Lab Results 07/15/17 07/15/17 07/15/17 Range/Units 14:00 14:00 14:00 WBC 9.3 (3.5-10.8) 10^3/ul RBC 4.59 (4.0-5.4) 10^6/ul Hgb 13.4 (12.0-16.0) g/dl Hct 40 (35-47) % MCV 86 (80-97) fL MCH 29 (27-31) pg MCHC 34 (31-36) g/dl RDW 14 (10.5-15) % Plt Count 258 (150-450) 10^3/ul MPV 8.7 (7.4-10.4) um3 Neut % (Auto) 73.5 (38-83) % Lymph % (Auto) 18.3 L (25-47) % [place] % (Auto) 7.3 H (0-7) % Eos % (Auto) 0.3 (0-6) % Baso % (Auto) 0.6 (0-2) % Absolute Neuts (auto) 6.9 (1.5-7.7) 10^3/ul Absolute Lymphs (auto) 1.7 (1.0-4.8) 10^3/ul Absolute Monos (auto) 0.7 (0-0.8) 10^3/ul Absolute Eos (auto) 0 (0-0.6) 10^3/ul Absolute Basos (auto) 0.1 (0-0.2) 10^3/ul Absolute Nucleated RBC 0 10^3/ul Nucleated RBC % 0 INR (Anticoag Therapy) 0.89 (0.77-1.02) APTT 30.9 (26.0-36.3) seconds Sodium 137 L (139-145) mmol/L Potassium 3.9 (3.5-5.0) mmol/L Chloride 101 (101-111) mmol/L Carbon Dioxide 25 (22-32) mmol/L Anion Gap 11 (2-11) mmol/L BUN 16 (6-24) mg/dL Creatinine 0.96 H (0.51-0.95) mg/dL Est GFR ( Amer) 73.9 (>60) Est GFR (Non-Af Amer) 57.5 (>60) BUN/Creatinine Ratio 16.7 (8-20) Glucose 149 H (70-100) mg/dL Calcium 9.6 (8.6-10.3) mg/dL Total Bilirubin 0.40 (0.2-1.0) mg/dL AST 25 (13-39) U/L ALT 21 (7-52) U/L Alkaline Phosphatase 57 (34-104) U/L Total Protein 6.8 (6.4-8.9) g/dL Albumin 4.1 (3.2-5.2) g/dL Globulin 2.7 (2-4) g/dL Albumin/Globulin Ratio 1.5 (1-3) Assess/Plan/Problems-Billing Assessment: - Patient Problems (1) CVA (cerebral vascular accident) Current Visit: Yes Status: Acute Code(s): I63.9 - CEREBRAL INFARCTION, UNSPECIFIED SNOMED Code(s): 380198915 Comment: R pontine CVA. Continue PT/OT, ASA. Continue atorvastatin 40 mg daily. Walked 140 feet with PT 07/17. (2) HTN (hypertension) Current Visit: Yes Status: Acute Code(s): I10 - ESSENTIAL (PRIMARY) HYPERTENSION SNOMED Code(s): 27831233 Comment: Started lisinopril 07/16. Status and Disposition: Discharge to [facility] 07/18/17.
--- NOTE | 2017-07-17 15:06 | PN ---
Progress Note - Progress Note Date of Service: 07/17/17 Note: Time spent on discharge 35 minutes.
[2017-07-17] MEDS: Atorvastatin* 40 MG TAB PO SCH (17:01)
[2017-07-18] MEDS: Heparin VIAL(*) 5000 UNITS/ML VIAL (FIVE THOUSAND) SUBCUT SCH (06:00)
[2017-07-18 06:55] LABS: ABS Basophils 0 10^3/ul (0-0.2); ABS Eosinophils 0.3 10^3/ul (0-0.6); ABS Lymphocytes 2.1 10^3/ul (1.0-4.8); ABS Monocytes 0.7 10^3/ul (0-0.8); ABS Neutrophils 3.9 10^3/ul (1.5-7.7); ABS Nucleated RBC 0 10^3/ul; Eosinophil % 3.9 % (0-6); Hematocrit 38 % (35-47); Hemoglobin 12.4 g/dl (12.0-16.0); Lymphocyte % 29.4 % (25-47); Mean Corpuscular HGB Conc 33 g/dl (31-36); Mean Corpuscular Hemoglobin 29 pg (27-31); Mean Corpuscular Volume 88 fL (80-97); Mean Platelet Volume 8.7 um3 (7.4-10.4); Nucleated Red Blood Cells % 0.1; Platelet Count 214 10^3/ul (150-450); Red Cell Distribution Width 14 % (10.5-15)
[2017-07-18 07:43] VITALS: BP 142/64
--- NOTE | 2017-07-18 07:50 | DS ---
DISCHARGE SUMMARY: DATE OF ADMISSION: 07/15/17 DATE OF DISCHARGE: 07/18/17 This is being dictated in advance. HOSPITAL COURSE: This 72-year-old woman presented with left sided weakness, slurred speech and facial drooping. She had not had any medical care for quite some time, and had no known medical problems. Several days before admission, she had an episode with facial droop and difficulty with speech, although the family notices that the patient did not want to come to the hospital; however, things out worse and she finally did agree to come to the hospital. The rest of the history is detailed in the admission note. CT scan of the brain was negative; however, MRI of the brain showed a right pontine acute focal infarction. There was significant improvement in her speech and some improvement in the strength in her left hand. She was seen in consultation by Dr. Jenkins. She was started on lisinopril for hypertension, aspirin, and atorvastatin for cerebrovascular disease. FINAL DIAGNOSES: 1. Right pontine acute non-hemorrhagic infarction. 2. Hypertension. MEDICATIONS ON DISCHARGE: 1. Acetaminophen 650 mg every four hours p.r.n. 2. Aspirin 81 mg daily. 3. Atorvastatin 40 mg daily at 5 p.m. 4. Lisinopril 5 mg daily. The patient was discharged to the [facility] for rehabilitation. [id number]/[facility] #: [id number] HERACLIO
[2017-07-18] MEDS: Aspirin 81 mg CHEW TAB* 81 MG TAB.CHEW PO SCH (08:01)
[2017-07-18] MEDS: Lisinopril TAB* 5 MG PO SCH (08:02)
--- NOTE | 2017-07-18 08:41 | PN ---
NEUROLOGY FOLLOWUP NOTE: DATE OF FOLLOWUP: 07/17/17 OVERNIGHT EVENTS: No acute overnight events. The patient feels she is a little better than yesterday, but is still having significant weakness in her left upper extremity. She did ambulate today with a walker with physical therapy and has been evaluated by the [facility]. MEDICATIONS: 1. Aspirin 81 mg daily. 2. Lipitor 40 mg daily. 3. Heparin 5,000 units q.8 hours. 4. Lisinopril 5 mg daily. 5. Zofran 4 mg q.6h p.r.n. PHYSICAL EXAMINATION: Vital signs: Temperature 97.6, blood pressure 139/54, heart rate 65, oxygen saturation 98% on room air. On general examination, she is in no acute distress. She is seated in a chair next to her bed. Her heart is in a regular rate and rhythm with no murmurs, rubs or gallops. Lungs are clear to auscultation bilaterally. There is no significant lower extremity edema. On neurologic exam, pupils are equal, round, and reactive from 3 to 2 mm bilaterally. Visions are full without nystagmus. Her smith are full. Facial sensation is full and symmetric. There is leftward facial weakness with good activation with smile. Hearing is intact to voice. The palate elevates symmetrically and the tongue is midline. On motor examination, she has diminished tone in the left upper extremity, and increased tone in the left lower extremity. Strength is full proximally and distally in the right upper and lower extremities. 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 Her left toe is upgoing. Sensation is intact to pinprick in the upper and lower extremities. There is no ataxia on finger-to- nose on the right. IMPRESSION: A 72-year-old woman with no regular medical care presenting subacutely with a right paramedian pontine stroke resulting in a left hemiparesis. Etiology is thought to be hypertensive in nature. She has been started on aspirin, a statin, and lisinopril. Her blood pressures are improved. She is being evaluated for the PMRU, which I think is the most appropriate thing for her as long as there is a suitable discharge plan after the fact. If I can be of further assistance during Ms. De Paz's hospitalization, please do not hesitate to let me know. [id number]/[facility] #: [id number] HERACLIO
== END 2017-07-18 08:20 | DRG 65 ==
LOC: ED 13:07 → MEDTELE 15:03
PROVIDERS: ADMIT Hospitalist; ATTEND Internal Medicine
DX: I63.9 Cerebral infarction, unspecified (principal); G81.94 Hemiplegia, unspecified affecting left nondominant side; I10 Essential (primary) hypertension; R47.81 Slurred speech; R29.810 Facial weakness; R29.700 NIHSS score 0; M17.12 Unilateral primary osteoarthritis, left knee; M19.042 Primary osteoarthritis, left hand; Z80.42 Family history of malignant neoplasm of prostate; Z80.1 Family history of malignant neoplasm of trachea, bronchus and lung; Z80.49 Family history of malignant neoplasm of other genital organs; Z79.82 Long term (current) use of aspirin; Z82.49 Family history of ischemic heart disease and other diseases of the circulatory system; Z87.891 Personal history of nicotine dependence; Z83.3 Family history of diabetes mellitus; Z72.89 Other problems related to lifestyle; Z80.8 Family history of malignant neoplasm of other organs or systems
CPT/HCPCS: 36415; 70450; 70496; 70498; 70551; 80048; 80053; 80061; 81003; 83036; 85025; 85610; 85730; 93005; 93306; 99211; 99283; A9270-GY; G0463; G8978-GP-CK; G8979-GP-CI; G8987-GO-CL; G8988-GO-CI; J0360; J1644; J2060; Q9967

== ENCOUNTER 2017-07-18 07:05 | Inpatient (IN) | payer MEDICARE ==
[2017-07-18] MEDS ORDERED: Senna TAB PO PRN (12:13)
[2017-07-18] MEDS ORDERED: Acetaminophen TAB* 325 MG PO PRN (12:13)
--- NOTE | 2017-07-18 12:36 | PMRUTEAM ---
PMRU: Team Meeting Current Status: Nursing: Current Status Bladder Current Status Continent Bowel Current Status Continent Nutrition Current Status set up Medication Current Status independent Physical Therapy: Current Status Bed Mobility Assistance Min Asssit Transfer Moblility Assistance Min Assist Transfer/Bed Mobility Rolling Walker Recommended Devices Ambulation Assistance Min Assist Ambulation Assistive Devices Rolling Walker Stairs Assistance Min Assist Stairs Recommended Devices One Rail Number of Stairs 3 Occupational Therapy: Current Status Upper Body Dressing Mod Assist Lower Body Dressing Max Asst Bathing Mod Assist Toileting Min Assist Toilet Transfer Min Assist Shower Transfer Mod Assist Eating Supervision Social Work: Current Status Discharge Plan return home with home care svs and family support Potential for Family Training pt's son is involved and supportive Anticipated Discharge Home Destination Discharge With home care svs and family support Goals: Physical Therapy: Updated Goals Transfer/Bed Mobility Rolling Walker Recommended Devices Occupational Therapy: Initial Goals Goals to be Completed in (Days 14 ) Upper Body Bathing Routine Modified Independent with Lower Body Bathing Routine Modified Independent with Upper Body Dressing Routine Modified Independent with Lower Body Dressing Routine Modified Independent with Toilet Hygeine and Clothing Modified Independent with Management Routine Toilet Transfer Routine Modified Independent with Step-In Shower Transfer Modified Independent with Routine Tub Transfer Routine Modified Independent with Functional Transfers for ADL Modified Independent with Grooming Routine Modified Independent with Feeding Routine Independent,Modified Independent with Light Housekeeping Tasks Moderate Assist Nursing: Goals Bladder Goal 7 Bowel Goal 7 Nutrition Goal independent Medication Goal supervision possible Social Work: Goals Discharge Plan return home with home care svs and family support Potential for Family Training pt's son is involved and supportive Anticipated Discharge Home Destination Discharge With home care svs and family support Care Plan: Care Plan Education-Improve/Maintain Start: 07/18/17 10:11 Freq: QSHIFT Status: Active Target: Protocol: Activity Type Activity Date Activity User E-Sign Co-Sign Detail Recorded Client Recorded Date Recorded By Document 07/18/17 10:12 [id number] 07/18/17 10:14 07/18/17 10:12 PMRU Outcome: Education Outcome/Goals Encourage Questions Other Outcome/Goals Newly diagnosed with htn Progression Toward Outcome/Goals Progressing Mobility- Improve/Maintain Start: 07/18/17 10:11 Freq: QSHIFT Status: Active Target: Protocol: Activity Type Activity Date Activity User E-Sign Co-Sign Detail Recorded Client Recorded Date Recorded By Document 07/18/17 11:43 [id number] 07/18/17 11:43 [id number] 07/18/17 11:43 PMRU Outcome: Mobility Physical Therapy Evaluation and Yes Treatment Activity OOB with Assistance Yes Device Yes Assistance Yes Patient to be seen 5x/wk for 60-120 min/ Therex day for: Mobility Training Gait Training Balance Outcome/Goals Maintain/ Achieve Baseline Mobility Status Improve Mobility Status Demonstrates Proper Use of Assistive Devices Free from Complications of Immobility Bed Mobility Yes: Independent Transfers Yes: Modified independent with RW Gait x ft Yes: Modified independent 150 ' with RW Up/Down Stairs Yes: Independent 1 railing flight With HEP Yes: Independent Neurological- Improve/Maintain Start: 07/18/17 10:11 Freq: QSHIFT Status: Active Target: Protocol: Activity Type Activity Date Activity User E-Sign Co-Sign Detail Recorded Client Recorded Date Recorded By Document 07/18/17 10:12 [id number] 07/18/17 10:14 [id number] 07/18/17 10:12 PMRU Outcome: Neurological Weakness/Aphasia Weakness Outcome/Goals Improve Neurological Status Prevent Avoidable Neurological Decline Progression Toward Outcome/Goals Progressing Outcome/Goals Met Improve Neurological Status Safety- Improve/Maintain Start: 07/18/17 10:11 Freq: QSHIFT Status: Active Target: Protocol: Activity Type Activity Date Activity User E-Sign Co-Sign Detail Recorded Client Recorded Date Recorded By Document 07/18/17 10:12 [id number] 07/18/17 10:14 [id number] 07/18/17 10:12 PMRU Outcome: Safety Outcome/Goals Remain Free of Injury or Harm Cooperates with Safety Measures for Least Restrictive Environment Prevent Falls/ Injury Progression Toward Outcome/Goals Progressing Medicine Note: Length of Stay: 2 weeks Anticipated Discharge Destination: Home Tentative Discharge Date: August 01, 2017 Discharged to: Home
[2017-07-18] MEDS: Heparin VIAL(*) 5000 UNITS/ML VIAL (FIVE THOUSAND) SUBCUT SCH ×2 (14:06→21:14)
[2017-07-18] MEDS: Atorvastatin* 40 MG TAB PO SCH (17:06)
[2017-07-18] MEDS: Docusate CAP* 100 MG PO SCH (21:06)
--- NOTE | 2017-07-19 01:15 | HP ---
HISTORY AND PHYSICAL: DATE OF ADMISSION: 07/18/17 REASON FOR ADMISSION: Right pontine stroke with left-sided weakness. HISTORY OF ILLNESS: Miri De Paz is a 72-year-old female. She has no past medical history, but admits to having not seen a doctor in many years. On 07/11/17, she had an episode of dysarthria accompanied by perhaps a facial droop. Her family wanted to bring her to the ER, but the patient declined. She figured it would go away. Over the next few days, she was having difficulty moving her left arm and left leg like she usually does. However, she figured this was her arthritis acting up in the cold damp weather. The patient's son felt that she was getting worse and brought her to the emergency room on 07/15/17. She was evaluated in the emergency room and had a CAT scan of her brain. The CAT scan showed multiple small vessel ischemic changes, but no acute stroke. She was evaluated by Neurology. Dr. Jenkins saw the patient and noted that her blood pressure was quite high. It was felt she was not a candidate for tPA as she had waited several days to come in when her stroke started. She was started on an aspirin a day and and Lipitor as well. The patient had an MRI of the brain done, which showed diffusion restriction in the right paramedian kendall. The patient was felt to have PT/OT and possibly speech therapy needs. She is now being admitted for inpatient rehab so that she might return to independent living. PAST MEDICAL HISTORY: As mentioned is not significant, although she did not see a doctor for many years and did not have a regular doctor. CURRENT MEDICATIONS: Include: 1. Baby aspirin every day. 2. Lipitor. 3. Lisinopril. 4. Heparin for DVT prophylaxis. ALLERGIES: No known drug allergies. SOCIAL HISTORY: She is a nonsmoker. She quit smoking 35 years ago. She drinks 2 beers a day. She lives with her son in a two-story house, there is a bedroom and a bathroom on both floors. REVIEW OF SYSTEMS: The patient reports no current shortness of breath or chest pain. PHYSICAL EXAMINATION VITAL SIGNS: The patient's temperature is 98.2, blood pressure is 170/68, pulse 61, respirations 20. HEENT: She may have a mild left facial palsy. Her speech is intelligible, but slightly dysarthric. NECK: Supple with no lymphadenopathy. LUNGS: Sounded clear to auscultation bilaterally. HEART: Sounds are regular. S1 and S2 are audible. ABDOMEN: Soft and nontender. EXTREMITIES: Her peripheral pulses were intact. NEUROLOGIC: She was awake, alert, oriented. Muscle strength on the left arm and leg were about 4/5. Right side appeared to be 5/5. FUNCTIONAL EXAM: The patient transfers with min assist. 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 PLAN: Our plan is to integrate her into a comprehensive and therapeutic rehab program with the following goals: 1. Physical Therapy will work with the patient, they are going to work on functional transfer training and ambulation training with a walker. 2. Occupational Therapy will see the patient, work on her activities of daily living including toileting and toilet transfers. 3. Speech Therapy will see the patient, work on her dysarthria. 4. We are going to continue her lisinopril for her blood pressure. 5. We will continue baby aspirin a day for secondary stroke prevention. 6. Continue Lipitor for hyperlipidemia. 7. SSRIs including Prozac as indicated. 8. Working Second Hand will be closely involved to make sure that any services and equipment that the patient requires are in place prior to discharge. 9. Family training as appropriate. 10. Home with appropriate services. ESTIMATED LENGTH OF STAY: Two weeks. [id number]/[facility] #: [id number] HERACLIO
[2017-07-19] MEDS: Heparin VIAL(*) 5000 UNITS/ML VIAL (FIVE THOUSAND) SUBCUT SCH ×3 (05:50→22:19)
[2017-07-19] MEDS: Aspirin 81 mg CHEW TAB* 81 MG TAB.CHEW PO SCH (08:21)
[2017-07-19] MEDS: Lisinopril TAB* 5 MG PO SCH (08:21)
[2017-07-19] MEDS: Docusate CAP* 100 MG PO SCH ×2 (08:25→22:11)
--- NOTE | 2017-07-19 12:05 | PN ---
Progress Note Date of Service: 07/19/17 Note: EZEQUIEL RODRÍGUEZ was visited. Therapy notes read and reviewed. She has left sided weakness but no neglect or hemianopsia that I can find. Tolerating meds. Spirits are ok. Current Medications: Active Medications Generic Name Dose Route Start Last Admin Trade Name Freq PRN Reason Stop Dose Admin Acetaminophen 650 mg 07/18/17 12:13 Tylenol Tab* PO Q6H PRN FEVER/PAIN Aspirin 81 mg 07/19/17 09:00 07/19/17 08:21 Aspirin 81 Mg Chew Tab* PO 81 mg DAILY PEDRO Administration Atorvastatin Calcium 40 mg 07/18/17 17:00 07/18/17 17:06 Lipitor* PO 40 mg 1700 PEDRO Administration Docusate Sodium 100 mg 07/18/17 21:00 07/19/17 08:25 Colace Cap* PO Not Given BID PEDRO Heparin Sodium (Porcine) 5,000 units 07/18/17 14:00 07/19/17 05:50 Heparin Vial(*) SUBCUT 5,000 units Q8HR PEDRO Administration Lisinopril 5 mg 07/19/17 09:00 07/19/17 08:21 Prinivil Tab* PO 5 mg DAILY PEDRO Administration Senna 2 tab 07/18/17 12:13 Senokot Tab* PO BEDTIME PRN CONSTIPATION Vital Signs: Vital Signs Temp Pulse Resp BP Pulse Ox 98.3 F 66 16 149/53 97 07/19/17 05:50 07/19/17 05:50 07/19/17 05:50 07/19/17 05:50 07/19/17 05:50 Exam: LUNGS: clear HEART: S1, S2 ABDOMEN: Soft, +BS EXTREMITIES: Increased tone on left NEUROLOGIC: Left VII nerve palsy, left arm 3/5, left leg 3/5 Assessment/Plan: 1. 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 Consider Prozac 2. DVT Prophylaxis: Heparin 3. HTN: Lisinopril 4: Advanced directives: Full code 07/19/17 12:05
[2017-07-19] MEDS: Atorvastatin* 40 MG TAB PO SCH (16:22)
[2017-07-20] MEDS: Heparin VIAL(*) 5000 UNITS/ML VIAL (FIVE THOUSAND) SUBCUT SCH ×3 (05:20→20:47)
[2017-07-20] MEDS: Lisinopril TAB* 5 MG PO SCH (08:57)
[2017-07-20] MEDS: Aspirin 81 mg CHEW TAB* 81 MG TAB.CHEW PO SCH (08:57)
[2017-07-20] MEDS: Docusate CAP* 100 MG PO SCH ×2 (09:25→20:43)
--- NOTE | 2017-07-20 12:58 | PN ---
Progress Note Date of Service: 07/20/17 Note: EZEQUIEL RODRÍGUEZ was visited. Nursing notes read and reviewed.She is getting slightly stronger but remains impaired. Vision is not affected that I can see. Current Medications: Active Medications Generic Name Dose Route Start Last Admin Trade Name Freq PRN Reason Stop Dose Admin Acetaminophen 650 mg 07/18/17 12:13 Tylenol Tab* PO Q6H PRN FEVER/PAIN Aspirin 81 mg 07/19/17 09:00 07/20/17 08:57 Aspirin 81 Mg Chew Tab* PO 81 mg DAILY PEDRO Administration Atorvastatin Calcium 40 mg 07/18/17 17:00 07/19/17 16:22 Lipitor* PO 40 mg 1700 PEDRO Administration Docusate Sodium 100 mg 07/18/17 21:00 07/20/17 09:25 Colace Cap* PO Not Given BID PEDRO Heparin Sodium (Porcine) 5,000 units 07/18/17 14:00 07/20/17 05:20 Heparin Vial(*) SUBCUT 5,000 units Q8HR PEDRO Administration Lisinopril 5 mg 07/19/17 09:00 07/20/17 08:57 Prinivil Tab* PO 5 mg DAILY PEDRO Administration Senna 2 tab 07/18/17 12:13 Senokot Tab* PO BEDTIME PRN CONSTIPATION Vital Signs: Vital Signs Temp Pulse Resp BP Pulse Ox 98.0 F 50 18 148/42 95 07/20/17 05:19 07/20/17 05:19 07/20/17 05:19 07/20/17 05:19 07/20/17 05:19 Exam: HEENT: EOMI LUNGS: clear HEART: S1, S2 ABDOMEN: Soft, +BS EXTREMITIES: Increased tone on left NEUROLOGIC: Left VII nerve palsy, visual smith full, left arm 3/5, left leg 3/5 Assessment/Plan: 1. 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 Consider Prozac 2. DVT Prophylaxis: Heparin 3. HTN: Lisinopril 4: Advanced directives: Full code 07/20/17 12:58
[2017-07-20] MEDS: Atorvastatin* 40 MG TAB PO SCH (17:39)
[2017-07-21] MEDS: Heparin VIAL(*) 5000 UNITS/ML VIAL (FIVE THOUSAND) SUBCUT SCH ×3 (05:33→21:38)
[2017-07-21 06:34] LABS: ABS Basophils 0 10^3/ul (0-0.2); ABS Eosinophils 0.3 10^3/ul (0-0.6); ABS Lymphocytes 2.9 10^3/ul (1.0-4.8); ABS Monocytes 0.9 10^3/ul (0-0.8); ABS Neutrophils 4.5 10^3/ul (1.5-7.7); ABS Nucleated RBC 0 10^3/ul; Eosinophil % 3.8 % (0-6); Hematocrit 37 % (35-47); Hemoglobin 12.6 g/dl (12.0-16.0); Lymphocyte % 33.7 % (25-47); Mean Corpuscular HGB Conc 34 g/dl (31-36); Mean Corpuscular Hemoglobin 30 pg (27-31); Mean Corpuscular Volume 87 fL (80-97); Mean Platelet Volume 8.9 um3 (7.4-10.4); Nucleated Red Blood Cells % 0.1; Platelet Count 218 10^3/ul (150-450); Red Blood Count 4.26 10^6/ul (4.0-5.4); Red Cell Distribution Width 14 % (10.5-15); White Blood Count 8.8 10^3/ul (3.5-10.8)
[2017-07-21 06:53] LABS: EGFR Non-African American 80.1 (>60)
[2017-07-21] MEDS: Docusate CAP* 100 MG PO SCH (08:37)
[2017-07-21] MEDS: Lisinopril TAB* 5 MG PO SCH (08:37)
[2017-07-21] MEDS: Aspirin 81 mg CHEW TAB* 81 MG TAB.CHEW PO SCH (08:37)
[2017-07-21] MEDS ORDERED: Lisinopril TAB* 5 MG PO SCH (16:30)
[2017-07-21] MEDS ORDERED: hydrALAZINE TAB* 10 MG PO ONE (16:30)
--- NOTE | 2017-07-21 16:34 | PN ---
Progress Note Date of Service: 07/21/17 Note: EZEQUIEL RODRÍGUEZ was visited. Therapy notes read and reviewed. Her BP has been running high. Will increase her Lisinopril to 10 and add HCTZ. Will add Hydralazine PRN Current Medications: Active Medications Generic Name Dose Route Start Last Admin Trade Name Freq PRN Reason Stop Dose Admin Acetaminophen 650 mg 07/18/17 12:13 Tylenol Tab* PO Q6H PRN FEVER/PAIN Aspirin 81 mg 07/19/17 09:00 07/21/17 08:37 Aspirin 81 Mg Chew Tab* PO 81 mg DAILY PEDRO Administration Atorvastatin Calcium 40 mg 07/18/17 17:00 07/20/17 17:39 Lipitor* PO 40 mg 1700 PEDRO Administration Docusate Sodium 100 mg 07/18/17 21:00 07/21/17 08:37 Colace Cap* PO Not Given BID PEDRO Heparin Sodium (Porcine) 5,000 units 07/18/17 14:00 07/21/17 14:18 Heparin Vial(*) SUBCUT 5,000 units Q8HR PEDRO Administration Hydralazine HCl 10 mg 07/21/17 16:31 Apresoline Tab* PO Q8H PRN Systolic Bp Greater Than: 180 Hydrochlorothiazide 25 mg 07/22/17 09:00 Hydrodiuril Tab* PO DAILY PEDRO Lisinopril 10 mg 07/21/17 16:30 Prinivil Tab* PO DAILY PEDRO Senna 2 tab 07/18/17 12:13 Senokot Tab* PO BEDTIME PRN CONSTIPATION Vital Signs: Vital Signs Temp Pulse Resp BP Pulse Ox 99.2 F 81 18 158/72 98 07/21/17 05:29 07/21/17 06:12 07/21/17 07:58 07/21/17 06:19 07/21/17 07:58 Lab Results: Laboratory Results - last 24 hr 07/21/17 07/21/17 06:12 06:12 WBC 8.8 RBC 4.26 Hgb 12.6 Hct 37 MCV 87 MCH 30 MCHC 34 RDW 14 Plt Count 218 MPV 8.9 Neut % (Auto) 51.9 Lymph % (Auto) 33.7 Morris % (Auto) 10.1 H Eos % (Auto) 3.8 Baso % (Auto) 0.5 Absolute Neuts (auto) 4.5 Absolute Lymphs (auto) 2.9 Absolute Monos (auto) 0.9 H Absolute Eos (auto) 0.3 Absolute Basos (auto) 0 Absolute Nucleated RBC 0 Nucleated RBC % 0.1 Sodium 140 Potassium 4.2 Chloride 107 Carbon Dioxide 25 Anion Gap 8 BUN 12 Creatinine 0.72 Est GFR ( Amer) 103.0 Est GFR (Non-Af Amer) 80.1 BUN/Creatinine Ratio 16.7 Glucose 112 H Calcium 9.2 Total Bilirubin 0.50 AST 29 ALT 42 Alkaline Phosphatase 60 Total Protein 6.1 L Albumin 3.8 Globulin 2.3 Albumin/Globulin Ratio 1.7 Exam: HEENT: EOMI LUNGS: clear HEART: S1, S2 ABDOMEN: Soft, +BS EXTREMITIES: Increased tone on left NEUROLOGIC: Left VII nerve palsy, visual smith full, left arm 3/5, left leg 3/5 Assessment/Plan: 1. 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 Consider Prozac 2. DVT Prophylaxis: Heparin 3. HTN: Lisinopril. Increase to 10 mg. Add HCTZ. Hydralazine PRN 4: Advanced directives: Full code 07/21/17 16:34
[2017-07-21] MEDS ORDERED: Docusate CAP* 100 MG PO PRN (16:35)
[2017-07-21] MEDS: Atorvastatin* 40 MG TAB PO SCH (16:55)
[2017-07-21] MEDS: hydrALAZINE TAB* 10 MG PO PRN (18:42)
[2017-07-21] MEDS ORDERED: hydrALAZINE TAB* 25 MG PO ONE (22:00)
[2017-07-22] MEDS: Heparin VIAL(*) 5000 UNITS/ML VIAL (FIVE THOUSAND) SUBCUT SCH ×3 (05:49→21:19)
[2017-07-22] MEDS: Aspirin 81 mg CHEW TAB* 81 MG TAB.CHEW PO SCH (07:57)
[2017-07-22] MEDS: Hydrochlorothiazide TAB* 25 MG PO SCH (07:57)
[2017-07-22] MEDS: hydrALAZINE TAB* 10 MG PO PRN (09:50)
[2017-07-22] MEDS ORDERED: hydrALAZINE TAB* 25 MG PO ONE (12:00)
--- NOTE | 2017-07-22 12:58 | PMRUTEAM ---
PMRU: Team Meeting Current Status: Nursing: Current Status Skin Deviations [No skin Other issues] Skin Deviation Description [No intact skin issues] Bladder Current Status Continent Bowel Current Status Continent Nutrition Current Status set up Medication Current Status independent Physical Therapy: Current Status Bed Mobility Assistance Supervision Transfer Moblility Assistance Supervision Transfer/Bed Mobility Rolling Walker Recommended Devices Ambulation Assistance Supervision Ambulation Assistive Devices Rolling Walker Number of Feet Patient 300' Ambulated Ambulation Comment Pt. presents a slightly unsteady modified reciprocal type gait Stairs Assistance Supervision Stairs Recommended Devices Two Rails Number of Stairs 10 Occupational Therapy: Current Status Upper Body Dressing Min Assist,Mod Assist Upper Body Dressing Progress modA with bra, supervision-Sarah with shirt over LUE Lower Body Dressing Mod Assist Lower Body Dressing Progress assist to hike underwear/pants in standing, assist for left sock Bathing Contact Guard Assist,Min Assist Bathing Progress for balance in standing portion Toileting Contact Guard Assist,Min Assist Toilet Transfer Contact Guard Assist Shower Transfer Min Assist Eating Supervision Eating Progress to open containers/cut food prn 2* LUE weakness Rec Therapy: Current Status Summary of Assessment and RT assessment complete and pt. is aware of RT Clinical Impression services. Pt. has been engaged in leisure visits. Provided RT material for her - crossword and word search puzzles. Treatment Goals Pt. will engage in leisure activities while on the unit. Treatment Plan Provide RT services and encourage involvement. Social Work: Current Status Discharge Plan return home with home care svs and family support Potential for Family Training pt's son is involved and attentive Anticipated Discharge Home Destination Discharge With home care svs and family support Speech: Current Status Assessment The patient demonstrated nearly resolved left- sided facial weakness with functional, symmetrical labial seal, retraction, smile, pucker, frown, and spontaneous facial expressions; and 100% speech intelligibility with 100% accurate labial seal for labial plosives and continuents. Speech Current Status Goal 1 Met Goals: Physical Therapy: Initial Goals Bed Mobility Assistance Independent Transfer Mobility Assistance Independent Transfer/Bed Mobility Rolling Walker Recommended Devices Ambulation Independent Ambulation Recommended Devices Rolling Walker Ambulation Distance 150 Stairs Assistance Independent Stair Recommended Devices Two Rails Number of Stairs 12 Physical Therapy: Updated Goals Bed Mobility Assistance Independent Transfer Mobility Assistance Independent Transfer/Bed Mobility Rolling Walker Recommended Devices Ambulation Assistance Independent Ambulation Assistive Devices Rolling Walker Ambulation Distance (ft) 150 Stairs Assistance Independent Stairs Recommended Devices Two Rails Number of Stairs 12 Occupational Therapy: Initial Goals Goals to be Completed in (Days 14 ) Upper Body Bathing Routine Modified Independent with Lower Body Bathing Routine Modified Independent with Upper Body Dressing Routine Modified Independent with Lower Body Dressing Routine Modified Independent with Toilet Hygeine and Clothing Modified Independent with Management Routine Toilet Transfer Routine Modified Independent with Step-In Shower Transfer Modified Independent with Routine Tub Transfer Routine Modified Independent with Functional Transfers for ADL Modified Independent with Grooming Routine Modified Independent with Feeding Routine Independent,Modified Independent with Light Housekeeping Tasks Moderate Assist Nursing: Goals Bladder Goal 7 Bowel Goal 7 Nutrition Goal independent Medication Goal supervision possible Nutrition: Goals Intervention Goals 1. Adequate PO intake to maintain stable weight w / o loss of lean body mass 2. Electrolytes will remain WNL with adequate PO intake 3. Pt will tolerate regular textures w/o difficulty swallowing 4. Education will be provided regarding statin/ grapefruit interaction as able Speech: Goals Speech Goal 1 Motor Speech Speech Current Status Goal 1 Met Goal 1 Comments [facility] Goals 1) Patient will demonstrate 100% intelligible speech without detectible distortion or weakness of speech sounds due to R sides labial weakness. Status: Met 2) Patient will demonstrate 80-90% symmetrical range of motion, strength and coordination of labial function, for appropriate facial expression . Status: Medt and 95% level, WFL. Short Term Goals 1) The patient will demonstrate intelligible speech with 20/20 accurate production of labial speech sounds /p,b/ in phrases independently. Status: Met. Patient demonstrated complete labial seal and accurate production of 51/51 labial plosives in words, phrases, and sentences. 2) Patient will demonstrate 90% symmetrical range of motion, strength and coordination of labial function, for appropriate facial expression. Status: Met. The patient demonstrated 95% symmetrical range of motion, strength and coordination of labial function, for appropriate facial expression, with mild residual weakness in isolated labial elevation and depression, but functional for spontaneous facial expressions. Social Work: Goals Discharge Plan return home with home care svs and family support Potential for Family Training pt's son is involved and attentive Anticipated Discharge Home Destination Discharge With home care svs and family support Care Plan: Care Plan ADL's - Improve/Maintain Start: 07/18/17 14:27 Freq: [email or web address]@1200 Status: Active Target: Protocol: Activity Type Activity Date Activity User E-Sign Co-Sign Detail Recorded Client Recorded Date Recorded By Document 07/21/17 15:48 [id number] 07/21/17 15:48 [id number] 07/21/17 15:48 PMRU Outcome: ADL's/ADL Transfers Orders/Interventions Occupational Therapy Evaluation & Treatment Communication Tool in Patient Room Device Yes: FWW, gait belt Address Deficits Secondary To: R CVA Patient to receive OT 5x/wk for 60-120 Therex min/day Self Care Management Group Therapy Neuromuscular ReEducation UE/LE ADL's with Assist Yes: Precious ADL Transfers with Assist Yes: Precious Toileting: Transfers,Clothing Management Yes: Precious ,Hygeine w/Assist Light Kitchen/Laundry w/Assist Yes: modA Progression Toward Outcome/Goals Progressing Outcome/Goals Met Pt participated well in ADL treatment session as well as neuromuscular re-ed of LUE with completion of therapeutic activities. Increased independence with dressing, bathing, and shower transfers this date. Cardiovascular- Improve/Maintain Start: 07/20/17 00:50 Freq: DAILY@1200 Status: Active Target: Protocol: Activity Type Activity Date Activity User E-Sign Co-Sign Detail Recorded Client Recorded Date Recorded By Document 07/22/17 08:00 [id number] 07/22/17 09:57 [id number] 07/22/17 08:00 PMRU Outcome: Cardiovascular Vital Signs q Shift for 48hrs Then BID Yes Daily Weight Ordered No Current Cardiovascular Outcome/Goal Maintain/ Achieve Baseline HR, BP , Perfusion Other Cardiovascular Outcome/Goal BP elevated, medications reviewed and new medication ordered and given Progression Toward Outcome/Goal Not Progressing Coping/Psych-Improve/Maintain Start: 07/20/17 00:50 Freq: DAILY@1200 Status: Active Target: Protocol: Activity Type Activity Date Activity User E-Sign Co-Sign Detail Recorded Client Recorded Date Recorded By Document 07/22/17 08:00 [id number] 07/22/17 09:57 [id number] 07/22/17 08:00 PMRU Outcome: Coping/Psychosocial Coping Outcome/Goals Verbalization of Acceptance of Rehab Admit Utilization of Appropriate Problem Solving Techniques Willingness to Participate in Treatment Plan and Basic Needs Psychosocial Outcome/Goals Maintain/ Improve Emotional Health Cooperate/ Participate in Plan Progression Toward Outcome/Goals - Progressing Coping Progression Toward Outcome/Goals - Progressing Psychosocial Coping Outcome/Goals Met Demonstrates Understanding of Rehab Admit and Goal Setting Process Discharge Planning - Improve/Maintain Start: 07/20/17 00:50 Freq: DAILY@1200 Status: Active Target: Protocol: Activity Type Activity Date Activity User E-Sign Co-Sign Detail Recorded Client Recorded Date Recorded By Document 07/20/17 00:50 [id number] 07/20/17 00:52 [id number] 07/20/17 00:50 PMRU Outcome: Discharge Planning Update Patient Family No Outcome/Goals Demonstrates Understanding of Discharge Plan Progression Toward Outcome/Goals Progressing Education-Improve/Maintain Start: 07/18/17 10:11 Freq: DAILY@1200 Status: Active Target: Protocol: Activity Type Activity Date Activity User E-Sign Co-Sign Detail Recorded Client Recorded Date Recorded By Document 07/22/17 08:00 [id number] 07/22/17 09:57 [id number] 07/22/17 08:00 PMRU Outcome: Education Outcome/Goals Encourage Questions Progression Toward Outcome/Goals Progressing Outcome/Goals Met Demonstrates Skills Required to Manage Self Care to Their Ability Mobility- Improve/Maintain Start: 07/18/17 10:11 Freq: DAILY@1200 Status: Active Target: Protocol: Activity Type Activity Date Activity User E-Sign Co-Sign Detail Recorded Client Recorded Date Recorded By Document 07/18/17 11:43 [id number] 07/18/17 11:43 [id number] 07/18/17 11:43 PMRU Outcome: Mobility Physical Therapy Evaluation and Yes Treatment Activity OOB with Assistance Yes Device Yes Assistance Yes Patient to be seen 5x/wk for 60-120 min/ Therex day for: Mobility Training Gait Training Balance Outcome/Goals Maintain/ Achieve Baseline Mobility Status Improve Mobility Status Demonstrates Proper Use of Assistive Devices Free from Complications of Immobility Bed Mobility Yes: Independent Transfers Yes: Modified independent with RW Gait x ft Yes: Modified independent 150 ' with RW Up/Down Stairs Yes: Independent 1 railing flight With HEP Yes: Independent Neurological- Improve/Maintain Start: 07/18/17 10:11 Freq: DAILY@1200 Status: Active Target: Protocol: Activity Type Activity Date Activity User E-Sign Co-Sign Detail Recorded Client Recorded Date Recorded By Document 07/22/17 08:00 [id number] 07/22/17 09:57 [id number] 07/22/17 08:00 PMRU Outcome: Neurological Weakness/Aphasia Weakness Outcome/Goals Improve Neurological Status Prevent Avoidable Neurological Decline Progression Toward Outcome/Goals Progressing Outcome/Goals Met Improve Neurological Status Prevent Avoidable Neurological Decline Safety- Improve/Maintain Start: 07/18/17 10:11 Freq: DAILY@1200 Status: Active Target: Protocol: Activity Type Activity Date Activity User E-Sign Co-Sign Detail Recorded Client Recorded Date Recorded By Document 07/22/17 08:00 [id number] 07/22/17 09:57 [id number] 07/22/17 08:00 PMRU Outcome: Safety Outcome/Goals Remain Free of Injury or Harm Cooperates with Safety Measures for Least Restrictive Environment Prevent Falls/ Injury Progression Toward Outcome/Goals Progressing Outcome/Goals Met Remain Free of Injury or Harm Cooperates with Safety Measures for Least Restrictive Environment Prevent Falls/ Injury Medicine Note: Length of Stay: 10 days Anticipated Discharge Destination: Home Tentative Discharge Date: 08/01/17 Discharged to: Home
[2017-07-22] MEDS: Atorvastatin* 40 MG TAB PO SCH (16:36)
--- NOTE | 2017-07-22 17:57 | PN ---
Progress Note Date of Service: 07/22/17 Note: EZEQUIEL RODRÍGUEZ was visited. Therapy notes read and reviewed. She was discussed in interdisciplinary team rounds. Her BP was high last night and this am. Given hydralazine. Will increase Lisinopril but may need to add Norvasc Current Medications: Active Medications Generic Name Dose Route Start Last Admin Trade Name Freq PRN Reason Stop Dose Admin Acetaminophen 650 mg 07/18/17 12:13 Tylenol Tab* PO Q6H PRN FEVER/PAIN Aspirin 81 mg 07/19/17 09:00 07/22/17 07:57 Aspirin 81 Mg Chew Tab* PO 81 mg DAILY PEDRO Administration Atorvastatin Calcium 40 mg 07/18/17 17:00 07/22/17 16:36 Lipitor* PO 40 mg 1700 PEDRO Administration Docusate Sodium 100 mg 07/21/17 16:35 Colace Cap* PO BID PRN CONSTIPATION Heparin Sodium (Porcine) 5,000 units 07/18/17 14:00 07/22/17 13:41 Heparin Vial(*) SUBCUT 5,000 units Q8HR PEDRO Administration Hydralazine HCl 25 mg 07/22/17 12:00 Apresoline Tab* PO Q6H PRN Systolic Bp Greater Than: 180 Hydrochlorothiazide 25 mg 07/22/17 09:00 07/22/17 07:57 Hydrodiuril Tab* PO 25 mg DAILY PEDRO Administration Lisinopril 20 mg 07/22/17 17:54 Prinivil Tab* PO DAILY PEDRO Senna 2 tab 07/18/17 12:13 Senokot Tab* PO BEDTIME PRN CONSTIPATION Vital Signs: Vital Signs Temp Pulse Resp BP Pulse Ox 98.3 F 63 22 176/78 97 07/22/17 16:00 07/22/17 16:00 07/22/17 16:00 07/22/17 16:00 07/22/17 16:08 Exam: HEENT: EOMI LUNGS: clear HEART: S1, S2 ABDOMEN: Soft, +BS EXTREMITIES: Increased tone on left NEUROLOGIC: Left VII nerve palsy, visual smith full, left arm 3-4/5, left leg 4 /5 Assessment/Plan: 1. 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 Consider Prozac 2. DVT Prophylaxis: Heparin 3. HTN: Lisinopril. Increase to 20 mg, HCTZ. Hydralazine PRN 4: Advanced directives: Full code 07/22/17 17:57
[2017-07-23] MEDS: Heparin VIAL(*) 5000 UNITS/ML VIAL (FIVE THOUSAND) SUBCUT SCH ×3 (05:16→21:15)
[2017-07-23 07:24] LABS: EGFR Non-African American 71.9 (>60)
[2017-07-23] MEDS: hydrALAZINE TAB* 25 MG PO PRN (08:21)
[2017-07-23] MEDS: Lisinopril TAB* 10 MG PO SCH (08:21)
[2017-07-23] MEDS: Aspirin 81 mg CHEW TAB* 81 MG TAB.CHEW PO SCH (08:21)
[2017-07-23] MEDS: Hydrochlorothiazide TAB* 25 MG PO SCH (08:21)
[2017-07-23] MEDS: Atorvastatin* 40 MG TAB PO SCH (16:57)
--- NOTE | 2017-07-23 22:54 | PN ---
Progress Note Date of Service: 07/23/17 Note: EZEQUIEL RODRÍGUEZ was visited. Therapy notes read and reviewed. Her BP was under better control today. She seems to be getting stronger on the left side Current Medications: Active Medications Generic Name Dose Route Start Last Admin Trade Name Freq PRN Reason Stop Dose Admin Acetaminophen 650 mg 07/18/17 12:13 Tylenol Tab* PO Q6H PRN FEVER/PAIN Aspirin 81 mg 07/19/17 09:00 07/23/17 08:21 Aspirin 81 Mg Chew Tab* PO 81 mg DAILY PEDRO Administration Atorvastatin Calcium 40 mg 07/18/17 17:00 07/23/17 16:57 Lipitor* PO 40 mg 1700 PEDRO Administration Docusate Sodium 100 mg 07/21/17 16:35 Colace Cap* PO BID PRN CONSTIPATION Heparin Sodium (Porcine) 5,000 units 07/18/17 14:00 07/23/17 21:15 Heparin Vial(*) SUBCUT 5,000 units Q8HR PEDRO Administration Hydralazine HCl 25 mg 07/22/17 12:00 07/23/17 08:21 Apresoline Tab* PO 25 mg Q6H PRN Administration Systolic Bp Greater Than: 180 Hydrochlorothiazide 25 mg 07/22/17 09:00 07/23/17 08:21 Hydrodiuril Tab* PO 25 mg DAILY PEDRO Administration Lisinopril 20 mg 07/22/17 17:54 07/23/17 08:21 Prinivil Tab* PO 20 mg DAILY PEDRO Administration Senna 2 tab 07/18/17 12:13 Senokot Tab* PO BEDTIME PRN CONSTIPATION Vital Signs: Vital Signs Temp Pulse Resp BP Pulse Ox 98.2 F 57 20 149/57 96 07/23/17 15:41 07/23/17 15:41 07/23/17 16:40 07/23/17 15:41 07/23/17 16:48 Lab Results: Laboratory Results - last 24 hr 07/23/17 06:43 Sodium 138 L Potassium 4.5 Chloride 104 Carbon Dioxide 30 Anion Gap 4 BUN 13 Creatinine 0.79 Est GFR ( Amer) 92.5 Est GFR (Non-Af Amer) 71.9 BUN/Creatinine Ratio 16.5 Glucose 113 H Calcium 9.2 Exam: HEENT: EOMI LUNGS: clear HEART: S1, S2 ABDOMEN: Soft, +BS EXTREMITIES: Increased tone on left NEUROLOGIC: Left VII nerve palsy, visual smith full, left arm 3-4/5, left leg 4 /5 Assessment/Plan: 1. 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 Consider Prozac 2. DVT Prophylaxis: Heparin 3. HTN: Lisinopril was increased to 20 mg, HCTZ. Hydralazine PRN. Will add Norvasc if BP remains high 4: Advanced directives: Full code 07/23/17 22:55
[2017-07-24] MEDS: Heparin VIAL(*) 5000 UNITS/ML VIAL (FIVE THOUSAND) SUBCUT SCH ×3 (05:51→21:13)
[2017-07-24] MEDS: Lisinopril TAB* 10 MG PO SCH (09:10)
[2017-07-24] MEDS: Aspirin 81 mg CHEW TAB* 81 MG TAB.CHEW PO SCH (09:10)
[2017-07-24] MEDS: Hydrochlorothiazide TAB* 25 MG PO SCH (09:10)
--- NOTE | 2017-07-24 16:32 | PN ---
Progress Note Date of Service: 07/24/17 Note: EZEQUIEL RODRÍGUEZ was visited. Therapy notes read and reviewed. Her BP is under control on higher Lisinopril and HCTZ. Otherwise she is getting stronger and balance is better Current Medications: Active Medications Generic Name Dose Route Start Last Admin Trade Name Freq PRN Reason Stop Dose Admin Acetaminophen 650 mg 07/18/17 12:13 Tylenol Tab* PO Q6H PRN FEVER/PAIN Aspirin 81 mg 07/19/17 09:00 07/24/17 09:10 Aspirin 81 Mg Chew Tab* PO 81 mg DAILY PEDRO Administration Atorvastatin Calcium 40 mg 07/18/17 17:00 07/23/17 16:57 Lipitor* PO 40 mg 1700 PEDRO Administration Docusate Sodium 100 mg 07/21/17 16:35 Colace Cap* PO BID PRN CONSTIPATION Heparin Sodium (Porcine) 5,000 units 07/18/17 14:00 07/24/17 14:18 Heparin Vial(*) SUBCUT 5,000 units Q8HR PEDRO Administration Hydralazine HCl 25 mg 07/22/17 12:00 07/23/17 08:21 Apresoline Tab* PO 25 mg Q6H PRN Administration Systolic Bp Greater Than: 180 Hydrochlorothiazide 25 mg 07/22/17 09:00 07/24/17 09:10 Hydrodiuril Tab* PO 25 mg DAILY PEDRO Administration Lisinopril 20 mg 07/22/17 17:54 07/24/17 09:10 Prinivil Tab* PO 20 mg DAILY PEDRO Administration Senna 2 tab 07/18/17 12:13 Senokot Tab* PO BEDTIME PRN CONSTIPATION Vital Signs: Vital Signs Temp Pulse Resp BP Pulse Ox 98.6 F 58 18 172/66 99 07/24/17 16:17 07/24/17 16:17 07/24/17 16:17 07/24/17 16:17 07/24/17 16:17 Exam: HEENT: EOMI LUNGS: clear HEART: S1, S2 ABDOMEN: Soft, +BS EXTREMITIES: Increased tone on left NEUROLOGIC: Left VII nerve palsy, visual smith full, left arm 4+/5, left leg 4+ /5 Assessment/Plan: 1. 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 Consider Prozac 2. DVT Prophylaxis: Heparin 3. HTN: BP better. Lisinopril was increased to 20 mg, HCTZ. Hydralazine PRN. Will add Norvasc if BP remains high 4: Advanced directives: Full code 07/24/17 16:33
[2017-07-24] MEDS: Atorvastatin* 40 MG TAB PO SCH (16:56)
[2017-07-25] MEDS: Heparin VIAL(*) 5000 UNITS/ML VIAL (FIVE THOUSAND) SUBCUT SCH ×3 (06:31→21:02)
[2017-07-25] MEDS: Hydrochlorothiazide TAB* 25 MG PO SCH (08:15)
[2017-07-25] MEDS: Aspirin 81 mg CHEW TAB* 81 MG TAB.CHEW PO SCH (08:15)
[2017-07-25] MEDS: Lisinopril TAB* 10 MG PO SCH (08:15)
[2017-07-25] MEDS: hydrALAZINE TAB* 25 MG PO PRN (16:43)
[2017-07-25] MEDS: Atorvastatin* 40 MG TAB PO SCH (16:43)
--- NOTE | 2017-07-25 17:14 | PN ---
Progress Note Date of Service: 07/25/17 Note: EZEQUIEL RODRÍGUEZ was visited. Therapy notes read and reviewed. Her BP is high again tonight. We will start her on Norvasc tomorrow. Current Medications: Active Medications Generic Name Dose Route Start Last Admin Trade Name Freq PRN Reason Stop Dose Admin Acetaminophen 650 mg 07/18/17 12:13 Tylenol Tab* PO Q6H PRN FEVER/PAIN Amlodipine Besylate 5 mg 07/26/17 09:00 Norvasc Tab* PO DAILY PEDRO Aspirin 81 mg 07/19/17 09:00 07/25/17 08:15 Aspirin 81 Mg Chew Tab* PO 81 mg DAILY PEDRO Administration Atorvastatin Calcium 40 mg 07/18/17 17:00 07/25/17 16:43 Lipitor* PO 40 mg 1700 PEDRO Administration Docusate Sodium 100 mg 07/21/17 16:35 Colace Cap* PO BID PRN CONSTIPATION Heparin Sodium (Porcine) 5,000 units 07/18/17 14:00 07/25/17 14:38 Heparin Vial(*) SUBCUT 5,000 units Q8HR PEDRO Administration Hydralazine HCl 25 mg 07/22/17 12:00 07/25/17 16:43 Apresoline Tab* PO 25 mg Q6H PRN Administration Systolic Bp Greater Than: 180 Hydrochlorothiazide 25 mg 07/22/17 09:00 07/25/17 08:15 Hydrodiuril Tab* PO 25 mg DAILY PEDRO Administration Lisinopril 20 mg 07/22/17 17:54 07/25/17 08:15 Prinivil Tab* PO 20 mg DAILY PEDRO Administration Senna 2 tab 07/18/17 12:13 Senokot Tab* PO BEDTIME PRN CONSTIPATION Vital Signs: Vital Signs Temp Pulse Resp BP Pulse Ox 98.4 F 57 16 210/90 97 07/25/17 15:50 07/25/17 15:50 07/25/17 15:50 07/25/17 16:42 07/25/17 16:05 Exam: HEENT: EOMI LUNGS: clear HEART: S1, S2 ABDOMEN: Soft, +BS EXTREMITIES: Increased tone on left NEUROLOGIC: Mild Left VII nerve palsy, visual smith full, left arm 4+/5, left leg 4+/5 Assessment/Plan: 1. 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 Consider Prozac 2. DVT Prophylaxis: Heparin 3. HTN: BP better. Lisinopril was increased to 20 mg, HCTZ. Hydralazine PRN. Will add Norvasc 4: Advanced directives: Full code 07/25/17 17:14
[2017-07-25] MEDS ORDERED: cloNIDine TAB* 0.1 MG PO ONE (21:00)
[2017-07-26] MEDS: Heparin VIAL(*) 5000 UNITS/ML VIAL (FIVE THOUSAND) SUBCUT SCH ×3 (06:42→21:20)
[2017-07-26] MEDS: amLODIPine TAB* 5 MG PO SCH (09:12)
[2017-07-26] MEDS: Hydrochlorothiazide TAB* 25 MG PO SCH (09:12)
[2017-07-26] MEDS: Aspirin 81 mg CHEW TAB* 81 MG TAB.CHEW PO SCH (09:12)
[2017-07-26] MEDS: Lisinopril TAB* 10 MG PO SCH (09:12)
--- NOTE | 2017-07-26 15:55 | PN ---
Progress Note Date of Service: 07/26/17 Note: EZEQUIEL RODRÍGUEZ was visited. Nursing and therapy notes read and reviewed. Her BP was high again last night. She received clonidine and hydralazine. Now on Norvasc, HCTZ/Lisinopril Current Medications: Active Medications Generic Name Dose Route Start Last Admin Trade Name Freq PRN Reason Stop Dose Admin Acetaminophen 650 mg 07/18/17 12:13 Tylenol Tab* PO Q6H PRN FEVER/PAIN Amlodipine Besylate 5 mg 07/26/17 09:00 07/26/17 09:12 Norvasc Tab* PO 5 mg DAILY PEDRO Administration Aspirin 81 mg 07/19/17 09:00 07/26/17 09:12 Aspirin 81 Mg Chew Tab* PO 81 mg DAILY PEDRO Administration Atorvastatin Calcium 40 mg 07/18/17 17:00 07/25/17 16:43 Lipitor* PO 40 mg 1700 PEDRO Administration Docusate Sodium 100 mg 07/21/17 16:35 Colace Cap* PO BID PRN CONSTIPATION Heparin Sodium (Porcine) 5,000 units 07/18/17 14:00 07/26/17 14:19 Heparin Vial(*) SUBCUT 5,000 units Q8HR PEDRO Administration Hydralazine HCl 25 mg 07/22/17 12:00 07/25/17 16:43 Apresoline Tab* PO 25 mg Q6H PRN Administration Systolic Bp Greater Than: 180 Hydrochlorothiazide 25 mg 07/22/17 09:00 07/26/17 09:12 Hydrodiuril Tab* PO 25 mg DAILY PEDRO Administration Lisinopril 20 mg 07/22/17 17:54 07/26/17 09:12 Prinivil Tab* PO 20 mg DAILY PEDRO Administration Senna 2 tab 07/18/17 12:13 Senokot Tab* PO BEDTIME PRN CONSTIPATION Vital Signs: Vital Signs Temp Pulse Resp BP Pulse Ox 98.3 F 58 16 167/67 97 07/26/17 06:41 07/26/17 06:41 07/26/17 08:00 07/26/17 06:41 07/26/17 08:00 Exam: HEENT: EOMI LUNGS: clear HEART: S1, S2 ABDOMEN: Soft, +BS EXTREMITIES: Increased tone on left NEUROLOGIC: Mild Left VII nerve palsy, visual smith full, left arm 4+/5, left leg 4+/5 Assessment/Plan: 1. 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 Consider Prozac 2. DVT Prophylaxis: Heparin 3. HTN: BP better. Lisinopril 20 mg/HCTZ25, Norvasc. Hydralazine PRN. 4: Advanced directives: Full code 07/26/17 15:55
[2017-07-26] MEDS: Atorvastatin* 40 MG TAB PO SCH (17:27)
[2017-07-27] MEDS: Heparin VIAL(*) 5000 UNITS/ML VIAL (FIVE THOUSAND) SUBCUT SCH ×3 (06:16→21:31)
[2017-07-27] MEDS: hydrALAZINE TAB* 25 MG PO PRN ×2 (06:57→16:10)
[2017-07-27] MEDS: Lisinopril TAB* 10 MG PO SCH (08:10)
[2017-07-27] MEDS: amLODIPine TAB* 5 MG PO SCH (08:10)
[2017-07-27] MEDS: Aspirin 81 mg CHEW TAB* 81 MG TAB.CHEW PO SCH (08:10)
[2017-07-27] MEDS: Hydrochlorothiazide TAB* 25 MG PO SCH (08:10)
--- NOTE | 2017-07-27 12:58 | PN ---
Progress Note Date of Service: 07/27/17 Note: EZEQUIEL RODRÍGUEZ was visited. Nursing notes read and reviewed. Her BP was high this am. I'm going to add clonidine and will ask another MD to see for a consult. Current Medications: Active Medications Generic Name Dose Route Start Last Admin Trade Name Freq PRN Reason Stop Dose Admin Acetaminophen 650 mg 07/18/17 12:13 Tylenol Tab* PO Q6H PRN FEVER/PAIN Amlodipine Besylate 5 mg 07/26/17 09:00 07/27/17 08:10 Norvasc Tab* PO 5 mg DAILY PEDRO Administration Aspirin 81 mg 07/19/17 09:00 07/27/17 08:10 Aspirin 81 Mg Chew Tab* PO 81 mg DAILY PEDRO Administration Atorvastatin Calcium 40 mg 07/18/17 17:00 07/26/17 17:27 Lipitor* PO 40 mg 1700 PEDRO Administration Clonidine HCl 0.1 mg 07/27/17 21:00 Catapres Tab* PO BID PEDRO Docusate Sodium 100 mg 07/21/17 16:35 Colace Cap* PO BID PRN CONSTIPATION Heparin Sodium (Porcine) 5,000 units 07/18/17 14:00 07/27/17 06:16 Heparin Vial(*) SUBCUT 5,000 units Q8HR PEDRO Administration Hydralazine HCl 25 mg 07/22/17 12:00 07/27/17 06:57 Apresoline Tab* PO 25 mg Q6H PRN Administration Systolic Bp Greater Than: 180 Hydrochlorothiazide 25 mg 07/22/17 09:00 07/27/17 08:10 Hydrodiuril Tab* PO 25 mg DAILY PEDRO Administration Lisinopril 20 mg 07/22/17 17:54 07/27/17 08:10 Prinivil Tab* PO 20 mg DAILY PEDRO Administration Senna 2 tab 07/18/17 12:13 Senokot Tab* PO BEDTIME PRN CONSTIPATION Vital Signs: Vital Signs Temp Pulse Resp BP Pulse Ox 98.5 F 63 16 194/90 98 07/27/17 06:09 07/27/17 06:09 07/27/17 08:10 07/27/17 06:15 07/27/17 06:20 Exam: HEENT: EOMI LUNGS: clear HEART: S1, S2 ABDOMEN: Soft, +BS EXTREMITIES: Increased tone on left NEUROLOGIC: Mild Left VII nerve palsy, visual smith full, left arm 4+/5, left leg 4+/5 Assessment/Plan: 1. 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 Consider Prozac 2. DVT Prophylaxis: Heparin 3. HTN: BP better. Lisinopril 20 mg/HCTZ25, Norvasc. Will add Clonidine. Hydralazine PRN. 4: Advanced directives: Full code 07/27/17 12:58
[2017-07-27] MEDS: Atorvastatin* 40 MG TAB PO SCH (16:10)
[2017-07-27] MEDS: cloNIDine TAB* 0.1 MG PO SCH (20:29)
[2017-07-28] MEDS: Heparin VIAL(*) 5000 UNITS/ML VIAL (FIVE THOUSAND) SUBCUT SCH ×3 (05:15→21:51)
[2017-07-28 05:34] LABS: ABS Basophils 0.1 10^3/ul (0-0.2); ABS Eosinophils 0.3 10^3/ul (0-0.6); ABS Lymphocytes 3.2 10^3/ul (1.0-4.8); ABS Neutrophils 5.8 10^3/ul (1.5-7.7); ABS Nucleated RBC 0 10^3/ul; Eosinophil % 3.2 % (0-6); Hematocrit 37 % (35-47); Hemoglobin 12.4 g/dl (12.0-16.0); Lymphocyte % 30.6 % (25-47); Mean Corpuscular HGB Conc 34 g/dl (31-36); Mean Corpuscular Hemoglobin 29 pg (27-31); Mean Corpuscular Volume 87 fL (80-97); Mean Platelet Volume 8.9 um3 (7.4-10.4); Nucleated Red Blood Cells % 0.1; Platelet Count 254 10^3/ul (150-450); Red Blood Count 4.26 10^6/ul (4.0-5.4); Red Cell Distribution Width 14 % (10.5-15); White Blood Count 10.3 10^3/ul (3.5-10.8)
[2017-07-28 05:50] LABS: EGFR Non-African American 74.1 (>60)
[2017-07-28] MEDS: Lisinopril TAB* 10 MG PO SCH (07:56)
[2017-07-28] MEDS: hydrALAZINE TAB* 25 MG PO PRN (07:56)
[2017-07-28] MEDS: Aspirin 81 mg CHEW TAB* 81 MG TAB.CHEW PO SCH (07:56)
[2017-07-28] MEDS: amLODIPine TAB* 5 MG PO SCH (07:56)
[2017-07-28] MEDS: cloNIDine TAB* 0.1 MG PO SCH ×2 (07:56→20:03)
[2017-07-28] MEDS: Hydrochlorothiazide TAB* 25 MG PO SCH (08:26)
--- NOTE | 2017-07-28 16:09 | PN ---
Progress Note Date of Service: 07/28/17 Note: EZEQUIEL RODRÍGUEZ was visited. Therapy notes read and reviewed. Her BP was better today on Clonidine. Will continue. Otherwise stronger on left Current Medications: Active Medications Generic Name Dose Route Start Last Admin Trade Name Freq PRN Reason Stop Dose Admin Acetaminophen 650 mg 07/18/17 12:13 Tylenol Tab* PO Q6H PRN FEVER/PAIN Amlodipine Besylate 5 mg 07/26/17 09:00 07/28/17 07:56 Norvasc Tab* PO 5 mg DAILY PEDRO Administration Aspirin 81 mg 07/19/17 09:00 07/28/17 07:56 Aspirin 81 Mg Chew Tab* PO 81 mg DAILY PEDRO Administration Atorvastatin Calcium 40 mg 07/18/17 17:00 07/27/17 16:10 Lipitor* PO 40 mg 1700 PEDRO Administration Clonidine HCl 0.1 mg 07/27/17 21:00 07/28/17 07:56 Catapres Tab* PO 0.1 mg BID PEDRO Administration Docusate Sodium 100 mg 07/21/17 16:35 Colace Cap* PO BID PRN CONSTIPATION Heparin Sodium (Porcine) 5,000 units 07/18/17 14:00 07/28/17 05:15 Heparin Vial(*) SUBCUT 5,000 units Q8HR PEDRO Administration Hydralazine HCl 25 mg 07/22/17 12:00 07/27/17 16:10 Apresoline Tab* PO 25 mg Q6H PRN Administration Systolic Bp Greater Than: 180 Hydrochlorothiazide 25 mg 07/22/17 09:00 07/28/17 08:26 Hydrodiuril Tab* PO 25 mg DAILY PEDRO Administration Lisinopril 20 mg 07/22/17 17:54 07/28/17 07:56 Prinivil Tab* PO 20 mg DAILY PEDRO Administration Senna 2 tab 07/18/17 12:13 Senokot Tab* PO BEDTIME PRN CONSTIPATION Vital Signs: Vital Signs Temp Pulse Resp BP Pulse Ox 98.9 F 66 16 158/78 96 07/28/17 05:32 07/28/17 12:12 07/28/17 08:00 07/28/17 12:12 07/28/17 08:00 Lab Results: Laboratory Results - last 24 hr 07/28/17 07/28/17 05:06 05:06 WBC 10.3 RBC 4.26 Hgb 12.4 Hct 37 MCV 87 MCH 29 MCHC 34 RDW 14 Plt Count 254 MPV 8.9 Neut % (Auto) 55.9 Lymph % (Auto) 30.6 [place] % (Auto) 9.6 H Eos % (Auto) 3.2 Baso % (Auto) 0.7 Absolute Neuts (auto) 5.8 Absolute Lymphs (auto) 3.2 Absolute Monos (auto) 1.0 H Absolute Eos (auto) 0.3 Absolute Basos (auto) 0.1 Absolute Nucleated RBC 0 Nucleated RBC % 0.1 Sodium 133 L Potassium 4.3 Chloride 100 L Carbon Dioxide 28 Anion Gap 5 BUN 16 Creatinine 0.77 Est GFR ( Amer) 95.3 Est GFR (Non-Af Amer) 74.1 BUN/Creatinine Ratio 20.8 H Glucose 109 H Calcium 9.1 Total Bilirubin 0.50 AST 15 ALT 27 Alkaline Phosphatase 60 Total Protein 6.2 L Albumin 3.9 Globulin 2.3 Albumin/Globulin Ratio 1.7 Exam: HEENT: EOMI LUNGS: clear HEART: S1, S2 ABDOMEN: Soft, +BS EXTREMITIES: Increased tone on left NEUROLOGIC: Mild Left VII nerve palsy, visual smith full, left arm 4+/5, left leg 4+/5 Assessment/Plan: 1. 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 Consider Prozac 2. DVT Prophylaxis: Heparin 3. HTN: BP better. Lisinopril 20 mg/HCTZ25, Norvasc, Clonidine. Hydralazine PRN. 4: Advanced directives: Full code 07/28/17 16:10
[2017-07-28] MEDS: Atorvastatin* 40 MG TAB PO SCH (17:20)
[2017-07-29] MEDS: Heparin VIAL(*) 5000 UNITS/ML VIAL (FIVE THOUSAND) SUBCUT SCH ×3 (05:50→22:00)
[2017-07-29] MEDS: amLODIPine TAB* 5 MG PO SCH (08:16)
[2017-07-29] MEDS: cloNIDine TAB* 0.1 MG PO SCH ×2 (08:16→19:55)
[2017-07-29] MEDS: Aspirin 81 mg CHEW TAB* 81 MG TAB.CHEW PO SCH (08:16)
[2017-07-29] MEDS: Hydrochlorothiazide TAB* 25 MG PO SCH (08:16)
[2017-07-29] MEDS: Lisinopril TAB* 10 MG PO SCH (08:16)
--- NOTE | 2017-07-29 12:48 | PMRUTEAM ---
PMRU: Team Meeting Current Status: Nursing: Current Status Skin Deviations [No skin Other issues] Skin Deviations [Generalized] Bruise Skin Deviation Description [No - skin issues] Skin Deviation Description [ healing Generalized] Bladder Current Status Continent Bowel Current Status Continent Nutrition Current Status set up Medication Current Status independent Physical Therapy: Current Status Bed Mobility Assistance Independent Transfer Moblility Assistance Supervision Transfer/Bed Mobility Rolling Walker Recommended Devices Transfer Mobility Comment Pt. is able to transition one surface to another S x 1. Ambulation Assistance Supervision Ambulation Assistive Devices Rolling Walker Number of Feet Patient 300' Ambulated Ambulation Comment An improved reciprocal type gait pattern. Stairs Assistance Supervision Stairs Recommended Devices One Rail,Two Rails Number of Stairs 20 Occupational Therapy: Current Status Upper Body Dressing Min Assist Upper Body Dressing Progress modA with bra, supervision-Sarah with shirt over LUE Lower Body Dressing Supervision Lower Body Dressing Progress assist to hike underwear/pants in standing, assist for left sock Bathing Supervision Bathing Progress for balance in standing portion Toileting Supervision Toilet Transfer Supervision Shower Transfer Supervision Eating Supervision Eating Progress to open containers/cut food prn 2* LUE weakness Rec Therapy: Current Status Summary of Assessment and RT assessment complete and pt. is aware of RT Clinical Impression services. Pt. has been engaged in leisure visits. Provided RT material for her - crossword and word search puzzles. Treatment Goals Pt. will engage in leisure activities while on the unit. Treatment Plan Provide RT services and encourage involvement. Social Work: Current Status Discharge Plan return home with home care svs and family support Potential for Family Training pt's family is involved and supportive Anticipated Discharge Home Destination Discharge With home care svs and family support Nutrition: Current Status Monitoring consistently eating very well w/heart healthy diet ; decaf ok. Hyponatremia (133) noted per labs yesterday morning; K wnl (4.3). Diet is low na+. Appears to be chewing and swallowing without difficulty; CANAL TENDER following pt for cog/ling deficits . Advised re: avoiding grapefruit w/statin therapy on 07/22; pt w/good understanding. Speech: Current Status Assessment The patient demonstrated nearly resolved left- sided facial weakness with functional, symmetrical labial seal, retraction, smile, pucker, frown, and spontaneous facial expressions; and 100% speech intelligibility with 100% accurate labial seal for labial plosives and continuents. Speech Current Status Goal 1 Met Goals: Physical Therapy: Initial Goals Bed Mobility Assistance Independent Transfer Mobility Assistance Independent Transfer/Bed Mobility Rolling Walker Recommended Devices Ambulation Independent Ambulation Recommended Devices Rolling Walker Ambulation Distance 150 Stairs Assistance Independent Stair Recommended Devices Two Rails Number of Stairs 12 Physical Therapy: Updated Goals Bed Mobility Assistance Independent Transfer Mobility Assistance Independent Transfer/Bed Mobility Rolling Walker Recommended Devices Ambulation Assistance Independent Ambulation Assistive Devices Rolling Walker Ambulation Distance (ft) 150 Stairs Assistance Independent Stairs Recommended Devices Two Rails Number of Stairs 12 Occupational Therapy: Initial Goals Goals to be Completed in (Days 14 ) Upper Body Bathing Routine Modified Independent with Lower Body Bathing Routine Modified Independent with Upper Body Dressing Routine Modified Independent with Lower Body Dressing Routine Modified Independent with Toilet Hygeine and Clothing Modified Independent with Management Routine Toilet Transfer Routine Modified Independent with Step-In Shower Transfer Modified Independent with Routine Tub Transfer Routine Modified Independent with Functional Transfers for ADL Modified Independent with Grooming Routine Modified Independent with Feeding Routine Independent,Modified Independent with Light Housekeeping Tasks Moderate Assist Nursing: Goals Bladder Goal 7 Bowel Goal 7 Nutrition Goal independent Medication Goal supervision possible Nutrition: Goals Intervention Goals 1. adequate po intake to maintain stable weight w / o loss of lean body mass 2. maintain serum electrolytes within normal ranges 3. regular diet textures will be tolerated w/o difficulty swallowing 4. pt will avoid grapefruit intake w/newly prescribed statin Speech: Goals Speech Goal 1 Motor Speech Speech Current Status Goal 1 Met Goal 1 Comments Halfway Goals 1) Patient will demonstrate 100% intelligible speech without detectible distortion or weakness of speech sounds due to R sides labial weakness. Status: Met 2) Patient will demonstrate 80-90% symmetrical range of motion, strength and coordination of labial function, for appropriate facial expression . Status: Medt and 95% level, WFL. Short Term Goals 1) The patient will demonstrate intelligible speech with 20/20 accurate production of labial speech sounds /p,b/ in phrases independently. Status: Met. Patient demonstrated complete labial seal and accurate production of 51/51 labial plosives in words, phrases, and sentences. 2) Patient will demonstrate 90% symmetrical range of motion, strength and coordination of labial function, for appropriate facial expression. Status: Met. The patient demonstrated 95% symmetrical range of motion, strength and coordination of labial function, for appropriate facial expression, with mild residual weakness in isolated labial elevation and depression, but functional for spontaneous facial expressions. Social Work: Goals Discharge Plan return home with home care svs and family support Potential for Family Training pt's family is involved and supportive Anticipated Discharge Home Destination Discharge With home care svs and family support Care Plan: Care Plan ADL's - Improve/Maintain Start: 07/18/17 14:27 Freq: [email or web address]@1200 Status: Active Target: Protocol: Activity Type Activity Date Activity User E-Sign Co-Sign Detail Recorded Client Recorded Date Recorded By Document 07/28/17 11:38 [id number] 07/28/17 11:38 [id number] 07/28/17 11:38 PMRU Outcome: ADL's/ADL Transfers Orders/Interventions Occupational Therapy Evaluation & Treatment Communication Tool in Patient Room Device Yes: FWW, gait belt Address Deficits Secondary To: R CVA Patient to receive OT 5x/wk for 60-120 Therex min/day Self Care Management Group Therapy Neuromuscular ReEducation UE/LE ADL's with Assist Yes: Precious ADL Transfers with Assist Yes: Precious Toileting: Transfers,Clothing Management Yes: Precious ,Hygeine w/Assist Light Kitchen/Laundry w/Assist Yes: modA Progression Toward Outcome/Goals Progressing Outcome/Goals Met Pt with increased independence with LE dressing and bathing this date, increased steadiness with standing during ADL routine. Pt reports possibly may not wear bra at home as donning is still requiring Sarah to complete. Cardiovascular- Improve/Maintain Start: 07/20/17 00:50 Freq: DAILY@1200 Status: Active Target: Protocol: Activity Type Activity Date Activity User E-Sign Co-Sign Detail Recorded Client Recorded Date Recorded By Document 07/29/17 01:03 [id number] 07/29/17 01:04 [id number] 07/29/17 01:03 PMRU Outcome: Cardiovascular Vital Signs q Shift for 48hrs Then BID Yes Daily Weight Ordered No Current Cardiovascular Outcome/Goal Maintain/ Achieve Baseline HR, BP , Perfusion Free of Abnormal Cardiac Symptoms Progression Toward Outcome/Goal Progressing Coping/Psych-Improve/Maintain Start: 07/20/17 00:50 Freq: DAILY@1200 Status: Active Target: Protocol: Activity Type Activity Date Activity User E-Sign Co-Sign Detail Recorded Client Recorded Date Recorded By Document 07/29/17 01:03 [id number] 07/29/17 01:04 [id number] 07/29/17 01:03 PMRU Outcome: Coping/Psychosocial Coping Outcome/Goals Verbalization of Acceptance of Rehab Admit Utilization of Appropriate Problem Solving Techniques Willingness to Participate in Treatment Plan and Basic Needs Psychosocial Outcome/Goals Maintain/ Improve Emotional Health Cooperate/ Participate in Plan Progression Toward Outcome/Goals - Progressing Coping Progression Toward Outcome/Goals - Progressing Psychosocial Discharge Planning - Improve/Maintain Start: 07/20/17 00:50 Freq: DAILY@1200 Status: Active Target: Protocol: Activity Type Activity Date Activity User E-Sign Co-Sign Detail Recorded Client Recorded Date Recorded By Document 07/29/17 01:03 [id number] 07/29/17 01:04 [id number] 07/29/17 01:03 PMRU Outcome: Discharge Planning Update Patient Family No Outcome/Goals Demonstrates Understanding of Discharge Plan Progression Toward Outcome/Goals Progressing Education-Improve/Maintain Start: 07/18/17 10:11 Freq: DAILY@1200 Status: Active Target: Protocol: Activity Type Activity Date Activity User E-Sign Co-Sign Detail Recorded Client Recorded Date Recorded By Document 07/29/17 01:03 [id number] 07/29/17 01:04 [id number] 07/29/17 01:03 PMRU Outcome: Education Outcome/Goals Encourage Questions Progression Toward Outcome/Goals Progressing Mobility- Improve/Maintain Start: 07/18/17 10:11 Freq: DAILY@1200 Status: Active Target: Protocol: Activity Type Activity Date Activity User E-Sign Co-Sign Detail Recorded Client Recorded Date Recorded By Document 07/29/17 12:08 [id number] 07/29/17 12:08 [id number] 07/29/17 12:08 PMRU Outcome: Mobility Physical Therapy Evaluation and Yes Treatment Activity OOB with Assistance Yes Device Yes Assistance Yes Patient to be seen 5x/wk for 60-120 min/ Therex day for: Mobility Training Gait Training Balance Outcome/Goals Maintain/ Achieve Baseline Mobility Status Improve Mobility Status Demonstrates Proper Use of Assistive Devices Free from Complications of Immobility Progression Toward Outcome/Goals Progressing Bed Mobility Yes: Independent Transfers Yes: Modified independent with RW Gait x ft Yes: Modified independent 150 ' with RW Up/Down Stairs Yes: Independent 1 railing flight With HEP Yes: Independent Neurological- Improve/Maintain Start: 07/18/17 10:11 Freq: DAILY@1200 Status: Active Target: Protocol: Activity Type Activity Date Activity User E-Sign Co-Sign Detail Recorded Client Recorded Date Recorded By Document 07/29/17 01:03 [id number] 07/29/17 01:04 [id number] 07/29/17 01:03 PMRU Outcome: Neurological Weakness/Aphasia Weakness Left Side Weakness/Aphasia Comment improving. Outcome/Goals Improve Neurological Status Prevent Avoidable Neurological Decline Maintain/ Improve Strength/ROM Progression Toward Outcome/Goals Progressing Safety- Improve/Maintain Start: 07/18/17 10:11 Freq: DAILY@1200 Status: Active Target: Protocol: Activity Type Activity Date Activity User E-Sign Co-Sign Detail Recorded Client Recorded Date Recorded By Document 07/29/17 01:03 [id number] 07/29/17 01:04 [id number] 07/29/17 01:03 PMRU Outcome: Safety Outcome/Goals Remain Free of Injury or Harm Cooperates with Safety Measures for Least Restrictive Environment Prevent Falls/ Injury Progression Toward Outcome/Goals Progressing Medicine Note: Length of Stay: 3 days Anticipated Discharge Destination: Home Tentative Discharge Date: 08/01/17 Discharged to: Independent
[2017-07-29] MEDS: Atorvastatin* 40 MG TAB PO SCH (17:05)
--- NOTE | 2017-07-29 17:42 | PN ---
Progress Note Date of Service: 07/29/17 Note: EZEQUIEL RODRÍGUEZ was visited. Therapy notes read and reviewed. She was discussed in interdisciplinary team rounds. Her BP under better control. Will go home on Lisinopril/HCTZ, Clonidine,Norvasc. Current Medications: Active Medications Generic Name Dose Route Start Last Admin Trade Name Freq PRN Reason Stop Dose Admin Acetaminophen 650 mg 07/18/17 12:13 Tylenol Tab* PO Q6H PRN FEVER/PAIN Amlodipine Besylate 5 mg 07/26/17 09:00 07/29/17 08:16 Norvasc Tab* PO 5 mg DAILY PEDRO Administration Aspirin 81 mg 07/19/17 09:00 07/29/17 08:16 Aspirin 81 Mg Chew Tab* PO 81 mg DAILY PEDRO Administration Atorvastatin Calcium 40 mg 07/18/17 17:00 07/29/17 17:05 Lipitor* PO 40 mg 1700 PEDRO Administration Clonidine HCl 0.1 mg 07/27/17 21:00 07/29/17 08:16 Catapres Tab* PO 0.1 mg BID PEDRO Administration Docusate Sodium 100 mg 07/21/17 16:35 Colace Cap* PO BID PRN CONSTIPATION Heparin Sodium (Porcine) 5,000 units 07/18/17 14:00 07/29/17 16:00 Heparin Vial(*) SUBCUT 5,000 units Q8HR PEDRO Administration Hydralazine HCl 25 mg 07/22/17 12:00 07/27/17 16:10 Apresoline Tab* PO 25 mg Q6H PRN Administration Systolic Bp Greater Than: 180 Hydrochlorothiazide 25 mg 07/22/17 09:00 07/29/17 08:16 Hydrodiuril Tab* PO 25 mg DAILY PEDRO Administration Lisinopril 20 mg 07/22/17 17:54 07/29/17 08:16 Prinivil Tab* PO 20 mg DAILY PEDRO Administration Senna 2 tab 07/18/17 12:13 Senokot Tab* PO BEDTIME PRN CONSTIPATION Vital Signs: Vital Signs Temp Pulse Resp BP Pulse Ox 97.9 F 50 16 143/56 99 07/29/17 15:33 07/29/17 15:33 07/29/17 15:33 07/29/17 15:33 07/29/17 16:48 Exam: HEENT: EOMI LUNGS: clear HEART: S1, S2 ABDOMEN: Soft, +BS EXTREMITIES: Increased tone on left NEUROLOGIC: Mild Left VII nerve palsy, visual smith full, left arm 4+/5, left leg 4+/5 Assessment/Plan: 1. 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 Consider Prozac 2. DVT Prophylaxis: Heparin 3. HTN: BP better. Lisinopril 20 mg/HCTZ25, Norvasc, Clonidine. Hydralazine PRN. 4: Advanced directives: Full code 07/29/17 17:43
[2017-07-30] MEDS: Heparin VIAL(*) 5000 UNITS/ML VIAL (FIVE THOUSAND) SUBCUT SCH ×3 (05:53→21:49)
[2017-07-30] MEDS: Hydrochlorothiazide TAB* 25 MG PO SCH (09:33)
[2017-07-30] MEDS: cloNIDine TAB* 0.1 MG PO SCH ×2 (09:33→20:14)
[2017-07-30] MEDS: Aspirin 81 mg CHEW TAB* 81 MG TAB.CHEW PO SCH (09:33)
[2017-07-30] MEDS: amLODIPine TAB* 5 MG PO SCH (09:34)
[2017-07-30] MEDS: Lisinopril TAB* 10 MG PO SCH (09:34)
[2017-07-30] MEDS: Atorvastatin* 40 MG TAB PO SCH (16:50)
--- NOTE | 2017-07-30 18:57 | PN ---
Progress Note Date of Service: 07/30/17 Note: EZEQUIEL RODRÍGUEZ was visited. Therapy notes read and reviewed. She has done well. Her BP is controlled. She will go home tomorrow. Current Medications: Active Medications Generic Name Dose Route Start Last Admin Trade Name Freq PRN Reason Stop Dose Admin Acetaminophen 650 mg 07/18/17 12:13 Tylenol Tab* PO Q6H PRN FEVER/PAIN Amlodipine Besylate 5 mg 07/26/17 09:00 07/30/17 09:34 Norvasc Tab* PO 5 mg DAILY PEDRO Administration Aspirin 81 mg 07/19/17 09:00 07/30/17 09:33 Aspirin 81 Mg Chew Tab* PO 81 mg DAILY PEDRO Administration Atorvastatin Calcium 40 mg 07/18/17 17:00 07/30/17 16:50 Lipitor* PO 40 mg 1700 PEDRO Administration Clonidine HCl 0.1 mg 07/27/17 21:00 07/30/17 09:33 Catapres Tab* PO 0.1 mg BID PEDRO Administration Docusate Sodium 100 mg 07/21/17 16:35 Colace Cap* PO BID PRN CONSTIPATION Heparin Sodium (Porcine) 5,000 units 07/18/17 14:00 07/30/17 15:09 Heparin Vial(*) SUBCUT 5,000 units Q8HR PEDRO Administration Hydralazine HCl 25 mg 07/22/17 12:00 07/27/17 16:10 Apresoline Tab* PO 25 mg Q6H PRN Administration Systolic Bp Greater Than: 180 Hydrochlorothiazide 25 mg 07/22/17 09:00 07/30/17 09:33 Hydrodiuril Tab* PO 25 mg DAILY PEDRO Administration Lisinopril 20 mg 07/22/17 17:54 07/30/17 09:34 Prinivil Tab* PO 20 mg DAILY PEDRO Administration Senna 2 tab 07/18/17 12:13 Senokot Tab* PO BEDTIME PRN CONSTIPATION Vital Signs: Vital Signs Temp Pulse Resp BP Pulse Ox 98.5 F 62 18 153/50 98 07/30/17 05:53 07/30/17 05:53 07/30/17 05:53 07/30/17 05:53 07/30/17 05:53 Exam: HEENT: EOMI LUNGS: clear HEART: S1, S2 ABDOMEN: Soft, +BS EXTREMITIES: Increased tone on left NEUROLOGIC: Mild Left VII nerve palsy, visual smith full, left arm 4+/5, left leg 4+/5 Assessment/Plan: 1. 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 2. DVT Prophylaxis: Heparin 3. HTN: BP better. Lisinopril 20 mg/HCTZ 25mg, Norvasc, Clonidine. 4: Advanced directives: Full code 5. Disposition: home tomorrow 07/30/17 18:57
[2017-07-31] MEDS: Heparin VIAL(*) 5000 UNITS/ML VIAL (FIVE THOUSAND) SUBCUT SCH (05:05)
[2017-07-31 05:20] VITALS: BP 144/59
[2017-07-31] MEDS: cloNIDine TAB* 0.1 MG PO SCH (09:32)
[2017-07-31] MEDS: Aspirin 81 mg CHEW TAB* 81 MG TAB.CHEW PO SCH (09:32)
[2017-07-31] MEDS: amLODIPine TAB* 5 MG PO SCH (09:32)
[2017-07-31] MEDS: Hydrochlorothiazide TAB* 25 MG PO SCH (09:32)
[2017-07-31] MEDS: Lisinopril TAB* 10 MG PO SCH (09:32)
--- NOTE | 2017-08-01 01:59 | DS ---
CC: Dr. Serna.* DISCHARGE SUMMARY: DATE OF ADMISSION: 07/18/17 DATE OF DISCHARGE: 07/31/17 DISCHARGE DIAGNOSES: 1. Right pontine stroke with left-sided weakness. 2. Hypertension. 3. Hypercholesterolemia. HISTORY OF ILLNESS AND HOSPITAL COURSE: For complete history of the events leading up to her rehab stay please see the history and physical dictated by me on 07/18/17. While on the rehab unit the patient had difficulties with her blood pressure. Her blood pressure remained elevated after being started on lisinopril. Her lisinopril was increased to 10 and then 20. Hydrochlorothiazide was added. Her blood pressure still remained high and Norvasc was added. When her blood pressure still remained high clonidine was added to that. Following that her blood pressure came down. She was discharged home on lisinopril, hydrochlorothiazide, Norvasc, and clonidine. The patient otherwise was medically stable. She was seen by both physical and occupational therapy and made good gains with both disciplines. With physical therapy, at the time of admission, the patient required min assist for bed mobility, min assist to a transfer, she could ambulate 150 feet with minimal amount assistance. With occupational therapy at the time of admission, the patient required max assist for upper body dressing, max assist for lower body dressing, min assist for toileting, and min assist for toilet transfers. By the time of discharge she was independent in all activities. The patient was discharged home on 07/31/17. DISCHARGE DIET: Heart healthy. DISCHARGE MEDICATIONS: Included: 1. Norvasc 5 mg daily. 2. Aspirin 81 mg daily. 3. Lipitor 40 mg daily. 4. Clonidine 0.1 mg orally twice a day. 5. Lisinopril 20 mg daily. 6. Hydrochlorothiazide 25 mg orally daily. SERVICES AFTER DISCHARGE: Through [facility]. She will have home nursing, home physical therapy, and a home health aide followup. She has a new primary care doctor, Dr. Tomer Serna, and she will follow up with him on 08/11/17. [id number]/[facility] #: [id number] MTDD
== END 2017-07-31 11:52 | disposition home health service (06) | DRG 57 ==
LOC: PMRU 08:24
PROVIDERS: ADMIT Physical Medicine & Rehabilitation; ATTEND Physical Medicine & Rehabilitation
PROC: F07Z5ZZ Bed Mobility Treatment (ICD-10-PCS; principal; 2017-07-18)
PROC: F07Z9ZZ Gait Training/Functional Ambulation Treatment (ICD-10-PCS; 2017-07-18)
PROC: F07Z8ZZ Transfer Training Treatment (ICD-10-PCS; 2017-07-18)
PROC: F08Z0ZZ Bathing/Showering Techniques Treatment (ICD-10-PCS; 2017-07-18)
PROC: F08Z1ZZ Dressing Techniques Treatment (ICD-10-PCS; 2017-07-18)
PROC: F08Z3ZZ Feeding/Eating Treatment (ICD-10-PCS; 2017-07-18)
PROC: F06Z8ZZ Motor Speech Treatment (ICD-10-PCS; 2017-07-18)
DX: I69.354 Hemiplegia and hemiparesis following cerebral infarction affecting left non-dominant side (principal); I10 Essential (primary) hypertension; E78.00 Pure hypercholesterolemia, unspecified; Z87.891 Personal history of nicotine dependence; I69.322 Dysarthria following cerebral infarction
CPT/HCPCS: 36415; 80048; 80053; 85025; A9270-GY; J1644

== ENCOUNTER 2017-08-03 16:18 | Emergency (ER) | payer MEDICARE ==
[2017-08-03 16:27] VITALS: BP 184/80
--- NOTE | 2017-08-03 16:50 | UC ---
Head Injury HPI - HPI Summary HPI Summary: Patient presents with a past medical history of hemorragic CVA, and currently on aspirin. Today she was walking across a rug and her right foot caught, and she fell landing of her forehead. She was not aware she was falling until it was too late to brace or catch herself. She has a laceration in the middle of her forehead, and a compression dressing applied. She denies headache, blurred vision, LOC or neck pain. She denies any other pain or concerns at this time. 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 Cardiovascular History: Hypertension Neurological History: CVA Other History Of: Anticoagulant Therapy - Surgical History Surgical History: Yes Surgery Procedure, Year, and Place: - Family History Known Family History: Positive: Cardiac Disease, Hypertension, Diabetes - Social History Occupation: Retired Lives: With Family Alcohol Use: None Alcohol Amount: 2 beers daily Substance Use Type: None Smoking Status (MU): Former Smoker - Immunization History Most Recent Influenza Vaccination: never Most Recent Pneumonia Vaccination: never Review of Systems Constitutional: Negative Skin: Other - forehead laceration Eyes: Negative ENT: Negative Respiratory: Negative Cardiovascular: Negative Gastrointestinal: Negative Genitourinary: Negative Motor: Negative Neurovascular: Negative Musculoskeletal: Negative Neurological: Negative Psychological: Negative Is Patient Immunocompromised?: No All Other Systems Reviewed And Are Negative: Yes Physical Exam Triage Information Reviewed: Yes Appearance: Well-Appearing Vital Signs: Initial Vital Signs Temp 99.5 F 08/03/17 16:21 Pulse 88 08/03/17 16:21 Resp 16 08/03/17 16:21 BP 184/80 08/03/17 16:21 Pulse Ox 97 08/03/17 16:21 Vital Signs Reviewed: Yes Eye Exam: Normal ENT Exam: Normal Neck exam: Normal Respiratory Exam: Normal Cardiovascular Exam: Normal Abdominal Exam: Normal Musculoskeletal Exam: Normal Skin Exam: Normal Head Injury Course/Dx - Course Course Of Treatment: Patient presents s/p what appears to have been a mechanical fall, however she does not report any defensive guarding. She has a forehead laceration, a compression dressing was applied. I feel she need a CT brain and neck, and will be transferred to the ER via amblance for evalaution. She agrees to the transfer via ambulance. [facility] was called, and report given to Dr Tom. Patient was hemodynamically stable, and had patent airway at the time of transfer. VSS. - Differential Dx/Diagnosis Differential Diagnosis/HQI/PQRI: Other - head injury fall laceration Provider Diagnoses: fall. head injjury. laceration Discharge - Sign-Out/Discharge Documenting (check all that apply): Discharge - Discharge Plan Condition: Stable Disposition: [facility] Patient Education Materials: Laceration (DC), Head Injury (ED), Fall Prevention (ED) Referrals: No Primary Care Phys,NOPCP [Primary Care Provider] - - Billing Disposition and Condition Condition: STABLE Disposition: EMTALA
== END 2017-08-03 17:00 | disposition short-term general hospital (02) ==
LOC: UCEAST 16:18
DX: S01.81XA Laceration without foreign body of other part of head, initial encounter (principal); S09.90XA Unspecified injury of head, initial encounter; W18.30XA Fall on same level, unspecified, initial encounter; Y93.01 Activity, walking, marching and hiking; Y92.009 Unspecified place in unspecified non-institutional (private) residence as the place of occurrence of the external cause; I10 Essential (primary) hypertension; Z86.73 Personal history of transient ischemic attack (TIA), and cerebral infarction without residual deficits; Z79.01 Long term (current) use of anticoagulants; Z87.891 Personal history of nicotine dependence
CPT/HCPCS: 99213; G0463

== ENCOUNTER 2017-08-03 17:21 | Emergency (ER) | payer MEDICARE ==
--- NOTE | 2017-08-03 18:30 | RAD ---
indication: Laceration after trauma (laterality is unspecified) COMPARISON: CT of the brain dated July 15, [address] scan of the brain and c-spine was performed without intravenous contrast enhancement. Contiguous axial sections were obtained from the lung apices through the vertex. BRAIN: The ventricles, cisterns and sulci are within normal limits. No significant focal abnormality or mass effect is seen. There is mild periventricular and subcortical white matter hypoattenuation, unchanged from the prior CT of the brain, and most consistent with chronic microvascular disease.The johnson-white differentiation is adequately maintained. There is no intracranial hemorrhage. No significant bony abnormality is present. The mastoid air cells are appropriately aerated. The visualized paranasal sinuses are clear. C-SPINE: On the sagittal view images there is straightening of the normal cervical lordosis. The vertebral bodies and facet joints are otherwise anatomically aligned. There is no fracture or dislocation. The dens is intact. There is no atlantodental widening. Degenerative changes include loss of intervertebral disc height most severely at C5/C6 where there is marginal osteophyte formation. There is no hyperdense material in the cervical canal to indicate hemorrhage. The visualized musculature and soft tissues are normal. There is no gross lymphadenopathy visualized. The visualized portion of the lung apices are clear. IMPRESSION: 1. No calvarial fracture or acute intracranial hemorrhage. 2. No acute fracture or dislocation of the cervical spine.
[2017-08-03 19:02] VITALS: BP 154/66
--- NOTE | 2017-08-14 14:47 | ED ---
Drake Quesada Elizabeth, scribed for Gokul Horner MD on 08/03/17 at 1800 . Head Injury - HPI Summary HPI Summary: This patient is a 72 year old F presenting to [facility] with a chief complaint of a head injury and scalp laceration that occurred earlier today. Symptoms aggravated by nothing. Symptoms alleviated by nothing. Per triage note, patient reports she was referred from [facility] after falling and striking her head on a door frame. Patient denies any loss of consciousness or pain anywhere other than her head. 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 Per triage note, patient has residual weakness to her left side. 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 Mechanism Of Injury: Fall From A Standing Position Onset/Duration: Started Hours Ago Onset of Pain: Post Accident Pain Intensity: 0 Associated Signs And Symptoms: Other: - scalp laceration Anticoagulant Therapy: Blood Thinners - Allergies/Home Medications Allergies/Adverse Reactions: Allergies Allergy/AdvReac Type Severity Reaction Status Date / Time No Known Allergies Allergy Verified 08/03/17 16:28 PMH/Surg Hx/FS Hx/Imm Hx Endocrine/Hematology History: Reports: Hx Anticoagulant Therapy Denies: Hx Diabetes Cardiovascular History: Reports: Hx Hypertension - newly diagnosed hypertension Denies: Hx Pacemaker/ICD Musculoskeletal History: Reports: Hx Arthritis Sensory History: Reports: Hx Contacts or Glasses Denies: Hx Hearing Aid, Hx Hearing Problem, Other Sensory Impairments Opthamlomology History: Reports: Hx Contacts or Glasses Denies: Other Sensory Impairments Psychiatric History: Denies: Hx Panic Disorder - Cancer History Cancer Type, Location and Year: arthritis - Surgical History Surgery Procedure, Year, and Place: Infectious Disease History: No Infectious Disease History: Denies: Traveled Outside the [place] in Last 30 Days - Family History Known Family History: Positive: Cardiac Disease, Hypertension, Diabetes - Social History Alcohol Use: None Alcohol Amount: 2 beers daily Substance Use Type: Reports: None Smoking Status (MU): Former Smoker Review of Systems Negative: Fever, Chills Negative: Erythema Negative: Sore Throat Negative: Chest Pain Negative: Shortness Of Breath, Cough Negative: Abdominal Pain, Vomiting, Nausea Negative: dysuria, hematuria Musculoskeletal: Other - scalp laceration Negative: Myalgia, Edema Negative: Rash Neurological: Other - NEGATIVE DIZZINESS Positive: Headache All Other Systems Reviewed And Are Negative: Yes Physical Exam - Summary Physical Exam Summary: Constitutional: Well-developed, Well-nourished, Alert, Cooperative Skin: Warm, Dry HENT: Normocephalic; No Racoons eyes; No garland's sign; No contusion; No hemotympanum; No maxilla facial tenderness or instability; Dentition are smooth ; No dental trauma; No trismus; 5 mm longitudinal laceration over left superorbital region Eyes: EOM normal, PERRL Neck: Trachea is midline. No stridor; No JVD; No step off; No posterior cervical spine tenderness Cardio: Rhythm regular, rate normal Heart sounds normal; Intact distal pulses; The pedal pulses are 2+ and symmetric. Radial pulses are 2+ and symmetric. Pulmonary/Chest wall: Effort normal; Breath sounds normal; Equal chest rise; No flail segment; No rib tenderness; No sternal tenderness Abd: Soft, Appearance normal. No distension; No tenderness; No palpable pulsatile mass; No Cullens sign; No Choi-Turners sign Musculoskeletal: Full ROM and no tenderness at hips, ankles, shoulders, elbows and knees; No joint swelling; No vertebral body tenderness; No paraspinal tenderness; No step off or deformity of the spine; Pelvis is stable to lateral compression and rock Neuro: Alert, Oriented x3, Strength 5/5 all extremities. : No blood at urethral meatus Psych: Mood and affect Normal Triage Information Reviewed: Yes Vital Signs On Initial Exam: Initial Vitals Temp Pulse Resp BP Pulse Ox 98.7 F 71 18 167/62 96 08/03/17 17:25 08/03/17 17:25 08/03/17 17:25 08/03/17 17:25 08/03/17 17:25 Vital Signs Reviewed: Yes Procedures - Laceration/Wound Repair 1 Location: head - over left supraorbital region Length, Depth and Shape: 5mm longitudinal Suture Type: Chromic, Other - polypropylene, simple uninterrupted sutures Number of Sutures: 3 Diagnostics - Vital Signs Vital Signs Temp Pulse Resp BP Pulse Ox 08/03/17 17:25 98.7 F 71 18 167/62 96 - Laboratory Lab Statement: Any lab studies that have been ordered have been reviewed, and results considered in the medical decision making process. - CT Cervical Spine & Brain CT CT Interpretation: No Acute Changes - IMPRESSION: 1. No calvarial fracture or acute intracranial hemorrhage. 2. No acute fracture or dislocation of the cervical spine. Dr. Horner has reviewed this report. CT Interpretation Completed By: Radiologist Head Injury Course/Dx Course Of Treatment: This patient is a 72 year old F presenting to [facility] with a chief complaint of a head injury and scalp laceration that occurred earlier today. Patient denies any loss of consciousness or pain anywhere other than her head. Patient was only recently discharged from the hospital after an ischemic CVA. Physical exam revealed a 5mm longitudinal laceration over left superorbital region. Cervical spine and brain CT, per radiologist, is normal. ED physician has reviewed this radiology report. Test results with no significant abnormalities. In the ED course the patient recieved 3 simple interrupted 5-0 polypropeline sutures. Patient will be discharged with follow up with primary care physician in 7 days for suture removal. Diagnosis is mechanical fall and scalp laceration. The patient is agreeable with this plan. - Diagnoses Provider Diagnoses: Scalp laceration, Fall Discharge - Sign-Out/Discharge Documenting (check all that apply): Discharge - Discharge Plan Condition: Stable Disposition: HOME Patient Education Materials: Care For Your Absorbable Stitches (ED) Referrals: [facility] [place] PHYSICIAN REFERRAL [Outside] - 7 Days Additional Instructions: Return to the emergency department with any changing or worsening symptoms. Follow up with primary care physician in 7 days for suture removal. The documentation as recorded by the Drake neal Elizabeth accurately reflects the service I personally performed and the decisions made by Evens perez Jerry, MD.
== END 2017-08-03 19:01 | disposition home or self-care (01) ==
LOC: ED 17:21
DX: S01.01XA Laceration without foreign body of scalp, initial encounter (principal); W01.198A Fall on same level from slipping, tripping and stumbling with subsequent striking against other object, initial encounter; Z87.891 Personal history of nicotine dependence; Z79.01 Long term (current) use of anticoagulants; I10 Essential (primary) hypertension; M19.90 Unspecified osteoarthritis, unspecified site; I69.354 Hemiplegia and hemiparesis following cerebral infarction affecting left non-dominant side; Y92.9 Unspecified place or not applicable; S01.81XA Laceration without foreign body of other part of head, initial encounter; W18.30XA Fall on same level, unspecified, initial encounter; Y93.01 Activity, walking, marching and hiking; Y92.009 Unspecified place in unspecified non-institutional (private) residence as the place of occurrence of the external cause
CPT/HCPCS: 12001; 70450; 72125; 99282

== ENCOUNTER 2017-08-10 10:16 | Emergency (ER) | payer MEDICARE ==
[2017-08-10 10:34] VITALS: BP 165/78
--- NOTE | 2017-08-10 11:02 | UC ---
HPI Wound/Suture Re-check - HPI Summary HPI Summary: Seen in 6 days ago after fall onto face. 3 sutures to forehead, here for removal. Denies pain, drainage, or other problems. Extensive bruising due to blood thinners. - History Of Current Complaint Chief Complaint: MAKENNAkin Stated Complaint: SUTURE REMOVAL Time Seen by Provider: 08/10/17 10:34 Hx Obtained From: Patient Hx Last Menstrual Period: co op Onset/Duration: Sudden Onset Severity: Mild Pain Intensity: 0 Pain Scale Used: 0-10 Numeric - Allergies/Home Medications Allergies/Adverse Reactions: Allergies Allergy/AdvReac Type Severity Reaction Status Date / Time No Known Allergies Allergy Verified 08/10/17 10:35 PMH/Surg Hx/FS Hx/Imm Hx Cardiovascular History: Hypertension, Bleeding Disorders - anticoagulation Other Cardiovascular History: stroke Other History Of: Anticoagulant Therapy - Surgical History Surgical History: Yes Surgery Procedure, Year, and Place: - Family History Known Family History: Positive: Cardiac Disease, Hypertension, Diabetes - Social History Occupation: Retired Alcohol Use: None Alcohol Amount: 2 beers daily Substance Use Type: None Smoking Status (MU): Former Smoker - Immunization History Most Recent Influenza Vaccination: never Most Recent Pneumonia Vaccination: never Review of Systems Constitutional: Negative Skin: Bruising, Other - sutures Eyes: Negative ENT: Negative Respiratory: Negative Cardiovascular: Negative Gastrointestinal: Negative Genitourinary: Negative Motor: Negative Neurovascular: Negative Musculoskeletal: Negative Neurological: Negative Psychological: Negative Is Patient Immunocompromised?: No All Other Systems Reviewed And Are Negative: Yes Physical Exam Triage Information Reviewed: Yes Appearance: Well-Appearing, Well-Nourished Vital Signs: Initial Vital Signs Temp 98.0 F 08/10/17 10:31 Pulse 104 08/10/17 10:31 Resp 18 08/10/17 10:31 BP 165/78 08/10/17 10:31 Pulse Ox 98 08/10/17 10:31 Vital Signs Reviewed: Yes Eye Exam: Normal Eyes: Positive: Conjunctiva Clear ENT Exam: Normal ENT: Positive: Normal ENT inspection, Hearing grossly normal, Pharynx normal, TMs normal Neck exam: Normal Respiratory Exam: Normal Respiratory: Positive: Chest non-tender, Lungs clear, Normal breath sounds, No respiratory distress Cardiovascular Exam: Normal - pulse in 90s on exam Cardiovascular: Positive: RRR Neurological: Positive: Alert Psychological Exam: Normal Skin Exam: Other - bruising to upper face L>R; 3 sutures removed from 2cm vertical wound, marked crusting. Pt antonio well, no wound dehiscence. Course/Dx - Differential Dx - Laceration/Wound Provider Diagnoses: Suture removal from facial lac. facial contusion Discharge - Sign-Out/Discharge Documenting (check all that apply): Discharge - Discharge Plan Condition: Stable Disposition: HOME Patient Education Materials: Stitches Removal (ED), Facial Contusion (ED) Referrals: No Primary Care Phys,NOPCP [Primary Care Provider] - Additional Instructions: Call or come back if you have new questions or concerns. You can wash your face like normal, but don't scrub or pick at your scabbed area. Make sure you use good sun protection on the area to prevent burning. - Billing Disposition and Condition Condition: STABLE Disposition: HOME
== END 2017-08-10 10:38 | disposition home or self-care (01) ==
LOC: UCEAST 10:16
DX: S01.81XD Laceration without foreign body of other part of head, subsequent encounter (principal); W19.XXXD Unspecified fall, subsequent encounter; I10 Essential (primary) hypertension; D68.9 Coagulation defect, unspecified; Z79.01 Long term (current) use of anticoagulants; Z86.73 Personal history of transient ischemic attack (TIA), and cerebral infarction without residual deficits; Z87.891 Personal history of nicotine dependence

== ENCOUNTER 2024-03-08 04:48 | Inpatient (IN) ==
[2024-03-08] MEDS: Iodixanol 320 (CONTRAST) 100 ML SDV IV ONE (05:31)
[2024-03-08 06:32] LABS: ALT 17 U/L (7-52); AST 30 U/L (13-39); Albumin 3.3 g/dL (3.2-5.2); Albumin/Globulin Ratio 1.3 (1-3); Alcohol, S < 13 mg/dL (<13); Alkaline Phosphatase 86 U/L (35-149); Anion Gap 11 mmol/L (2-16); Blood Urea Nitrogen 19 mg/dL (6-24); CO2 Carbon Dioxide 21 mmol/L (22-32); Calcium 8.1 mg/dL (8.6-10.3); Chloride 85 mmol/L (101-111); Creatinine, Serum 1.02 mg/dL (0.51-0.95); Globulin 2.5 g/dL (2-4); Glucose 121 mg/dL (70-100); Magnesium 1.6 mg/dL (1.9-2.7); Potassium 3.8 mmol/L (3.5-5.0); Sodium 117 mmol/L (135-145); Total Bilirubin 0.9 mg/dL (0.2-1.0); Total Protein 5.8 g/dL (6.4-8.9)
[2024-03-08 06:45] LABS: TSH Ultra Thyroid Stim Horm 2.59 mcIU/mL (0.34-5.60)
[2024-03-08 07:00] LABS: Hematocrit 34.9 % (35-45); Hemoglobin 11.5 g/dL (11.5-14.3); Mean Corpuscular Hemoglobin 26.9 pg (27-33); Mean Corpuscular Volume 81.6 fL (80-97); Mean Platelet Volume 8.2 fL (7.5-11.2); Platelet Count 456 10^3/uL (150-450); Red Blood Count 4.27 10^6/uL (3.63-4.92); White Blood Count 25.3 10^3/uL (3.8-11.8)
[2024-03-08] MEDS: NS 0.9% 1000 ml BAG 1,000 ML IV ONE (07:06)
[2024-03-08] MEDS ORDERED: LORazepam 2 MG/ML 1 mL Syringe IV ONE (07:27)
[2024-03-08] MEDS ORDERED: Lorazepam PYXIS KEY PRN (07:33)
[2024-03-08 07:41] LABS: ABS Lymphocytes 0.7 10^3/uL (1.0-4.8); ABS Monocytes 1.5 10^3/uL (0.0-0.9); ABS Neutrophils 23.2 10^3/uL (1.5-7.6); ABS Nucleated RBC 0.01 10^3/ul; Lymphocyte % 2.6 %; RBC Morphology Normal (Normal)
[2024-03-08] MEDS: LORazepam 2 mg VIAL 1 ml IV PUSH ONE (07:42)
[2024-03-08] MEDS ORDERED: Atropine 1% (ORAL/SL) 15 ML BTL SL PRN (08:09)
[2024-03-08] MEDS ORDERED: Ondansetron 4 mg VIAL 2 MG/ML 2 ml VIAL IV PRN (08:09)
[2024-03-08] MEDS ORDERED: Senna TAB 8.6 mg TAB PO PRN (08:09)
[2024-03-08] MEDS: Haloperidol 5 mg/ml SDV IV/IM 5 MG/ML AMP IM ONE (08:23)
[2024-03-08] MEDS: Morphine 2 MG/ML SYRINGE IV PRN (09:55)
[2024-03-08] MEDS: Morphine ORAL CONCENTRATE 5 MG/0.25 ML ORAL.SYRIN SL PRN (10:53)
[2024-03-08] MEDS: Acetaminophen IV 1 GM/100ML 1,000 MG/100 ML BAG IV PRN (15:31)
[2024-03-08] MEDS: LORazepam 2 mg VIAL 1 ml IV PUSH PRN (15:32)
[2024-03-08] MEDS ORDERED: Haloperidol 5 mg/ml SDV IV/IM 5 MG/ML AMP IV SLOW PU PRN (18:41)
[2024-03-09] MEDS: Ondansetron 4 mg VIAL 2 MG/ML 2 ml VIAL IV PRN (21:57)
[2024-03-11 11:46] LABS: ABS Lymphocytes 0.8 10^3/uL (1.0-4.8); ABS Monocytes 1.2 10^3/uL (0.0-0.9); ABS Neutrophils 17.7 10^3/uL (1.5-7.6); Eosinophil % 0.2 %; Hematocrit 34.4 % (35-45); Hemoglobin 11.2 g/dL (11.5-14.3); Lymphocyte % 3.9 %; Mean Corpuscular Hemoglobin 26.9 pg (27-33); Mean Corpuscular Hgb Conc 32.4 g/dL (31-36); Mean Corpuscular Volume 82.8 fL (80-97); Mean Platelet Volume 8.1 fL (7.5-11.2); Platelet Count 412 10^3/uL (150-450); Red Blood Count 4.16 10^6/uL (3.63-4.92); Red Cell Distribution Width 13.7 % (12-17); White Blood Count 19.8 10^3/uL (3.8-11.8)
[2024-03-11 12:24] LABS: Albumin 2.9 g/dL (3.2-5.2); Albumin/Globulin Ratio 1.3 (1-3); Calcium 8.4 mg/dL (8.6-10.3); Creatinine, Serum 0.71 mg/dL (0.51-0.95); Globulin 2.2 g/dL (2-4); Potassium 3.9 mmol/L (3.5-5.0); Total Bilirubin 0.7 mg/dL (0.2-1.0); Total Protein 5.1 g/dL (6.4-8.9); eGFR CKD-EPI 88.1 (>60)
[2024-03-11] MEDS: Enoxaparin 40 MG/0.4 ML SYR SUBCUT SCH (18:05)
[2024-03-11] MEDS: Morphine 2 MG/ML SYRINGE IV PRN (21:24)
[2024-03-12] MEDS: Sodium Phosphate ADULT ENEMA 133 ML BTL PR ONE (10:51)
[2024-03-12] MEDS ORDERED: Sodium Phosphate ADULT ENEMA 133 ML BTL PR PRN (12:00)
[2024-03-12 13:24] LABS: Hemoglobin 11.5 g/dL (11.5-14.3); Mean Corpuscular Hemoglobin 27.2 pg (27-33); Mean Corpuscular Hgb Conc 32.8 g/dL (31-36); Mean Corpuscular Volume 82.9 fL (80-97); Mean Platelet Volume 7.8 fL (7.5-11.2); Platelet Count 443 10^3/uL (150-450); Red Blood Count 4.22 10^6/uL (3.63-4.92); Red Cell Distribution Width 13.6 % (12-17); White Blood Count 17.9 10^3/uL (3.8-11.8)
[2024-03-12 13:35] LABS: INR 1.24 (0.85-1.14)
[2024-03-12 13:51] LABS: Albumin 3.1 g/dL (3.2-5.2); Albumin/Globulin Ratio 1.3 (1-3); Calcium 8.7 mg/dL (8.6-10.3); Creatinine, Serum 0.65 mg/dL (0.51-0.95); Globulin 2.4 g/dL (2-4); Total Bilirubin 1.5 mg/dL (0.2-1.0); Total Protein 5.5 g/dL (6.4-8.9); eGFR CKD-EPI 91.2 (>60)
[2024-03-12] MEDS: Piperacillin/Tazobac 3.375 BAG 3.375 GM/100 ML BAG IV ONE (13:54)
[2024-03-12] MEDS ORDERED: Zosyn per Pharmacy NOTE FOLLOW UP SCH (14:00)
[2024-03-12 14:25] LABS: ABS Lymphocytes 0.8 10^3/uL (1.0-4.8); ABS Monocytes 0.8 10^3/uL (0.0-0.9); Eosinophil % 0.1 %; Lymphocyte % 4.6 %
[2024-03-12] MEDS: Lactated Ringers 1000 ml BAG 1,000 ML IV ONE (14:36)
[2024-03-12] MEDS ORDERED: Bupivacaine 0.25% EPI 200,000 30 ML SDV ONE (14:53)
[2024-03-12] MEDS ORDERED: fentaNYL 100 mcg/2 ml 50 MCG/ML VIAL ONE ×3 (15:20→17:57)
[2024-03-12] MEDS ORDERED: fentaNYL 250 mcg/5 ml 50 MCG/ML 5 ml VIAL (250 MCG) ONE (15:22)
[2024-03-12] MEDS ORDERED: Ondansetron 4 mg VIAL 2 MG/ML 2 ml VIAL ONE (15:22)
[2024-03-12] MEDS ORDERED: Lidocaine 2% PF 5 ML VIAL ONE ×2 (15:22→15:34)
[2024-03-12] MEDS ORDERED: Propofol 10 MG/ML 20 ML BTL ONE ×2 (15:22→17:57)
[2024-03-12] MEDS ORDERED: Midazolam 2 mg/2 ml VIAL 1 mg/ml 2 ml VIAL (2 mg) ONE ×2 (15:22→15:31)
[2024-03-12] MEDS ORDERED: Dexamethasone IV 4 MG/ML VIAL 1 ml VIAL ONE (15:22)
[2024-03-12] MEDS ORDERED: Rocuronium 50 mg VIAL 10 mg/ml 5 ml VIAL (50 mg) ONE ×2 (15:27→17:07)
[2024-03-12] MEDS ORDERED: Sulfur Hexaflouride MICROSPHR 25 MG VIAL ONE (15:28)
[2024-03-12] MEDS: Sulfur Hexaflouride MICROSPHR 25 MG VIAL IV PRN (15:40)
[2024-03-12] MEDS ORDERED: Albumin Human 5% 25.0 GM/500 ML BTL IV ONE (16:12)
[2024-03-12] MEDS ORDERED: Phenylephrine IV 10 MG/ML 1 ml VIAL ONE (16:31)
[2024-03-12] MEDS ORDERED: HYDROmorphone 0.5 MG/0.5 ML SYRINGE ONE (16:47)
[2024-03-12] MEDS ORDERED: Midazolam 5 mg/5 ml VIAL 1 mg/ml 5 ml VIAL (5 mg) ONE (17:57)
[2024-03-12] MEDS: Propofol 10 mg/ml 100 ML BTL 1,000 MG/100 ML BTL IV SCH (20:00)
[2024-03-12] MEDS: Chlorhexidine MOUTHWASH 0.12% 15 ML UDC TOPICAL SCH (20:17)
[2024-03-12] MEDS: Pantoprazole VIAL 40 MG VIAL IV SCH (20:17)
[2024-03-12] MEDS: ZOSYN 3.375 GM Q8H per EXTENDED INFUSION IV SCH (20:33)
[2024-03-12] MEDS: fentaNYL 100 mcg/2 ml 50 MCG/ML VIAL IV SLOW PU PRN (20:53)
[2024-03-12 22:21] LABS: PCO2 Arterial 33 mmHg (35-45); PO2 Arterial 135 mmHg (80-100)
[2024-03-13] MEDS: Norepinephrine 4 MG/250mL D5W 4,000 MCG/250 ML BAG IV ONE (01:09)
[2024-03-13] MEDS: Norepinephrine 4 MG/250mL D5W 4,000 MCG/250 ML BAG IV SCH (01:09)
[2024-03-13 04:53] LABS: Hematocrit 29.9 % (35-45); Hemoglobin 9.7 g/dL (11.5-14.3); Mean Corpuscular Hemoglobin 27.2 pg (27-33); Mean Corpuscular Hgb Conc 32.6 g/dL (31-36); Mean Corpuscular Volume 83.6 fL (80-97); Mean Platelet Volume 7.7 fL (7.5-11.2); Platelet Count 347 10^3/uL (150-450); Red Blood Count 3.57 10^6/uL (3.63-4.92); Red Cell Distribution Width 13.9 % (12-17); White Blood Count 26.7 10^3/uL (3.8-11.8)
[2024-03-13 05:40] LABS: Albumin 2.4 g/dL (3.2-5.2); Albumin/Globulin Ratio 1.7 (1-3); Calcium 7.1 mg/dL (8.6-10.3); Creatinine, Serum 0.7 mg/dL (0.51-0.95); Globulin 1.4 g/dL (2-4); Magnesium 1.4 mg/dL (1.9-2.7); Phosphorus 2.6 mg/dL (2.5-5.0); Potassium 3.8 mmol/L (3.5-5.0); Total Bilirubin 1.9 mg/dL (0.2-1.0); Total Protein 3.8 g/dL (6.4-8.9); eGFR CKD-EPI 89.6 (>60)
[2024-03-13 06:04] LABS: ABS Lymphocytes 0.5 10^3/uL (1.0-4.8); ABS Monocytes 0.6 10^3/uL (0.0-0.9); ABS Neutrophils 25.5 10^3/uL (1.5-7.6); RBC Morphology Normal (Normal)
[2024-03-13] MEDS: Magnesium Sulf 4 GM/100 ML IV 4,000 MG/100 ML BAG IVPB ONE (07:26)
[2024-03-13] MEDS: KCL 20 MEQ/100 ML IVPREMIX 20 MEQ/100 ML BAG IV ONE (07:26)
[2024-03-13] MEDS: Acetaminophen IV 1 GM/100ML 1,000 MG/100 ML BAG IV SCH (08:41)
[2024-03-13] MEDS ORDERED: Morphine 2 MG/ML SYRINGE IV PRN (09:24)
[2024-03-13] MEDS: fentaNYL INFUSION 50 mcg/mL VL 2,500 MCG/50 ML VIAL IV SCH ×2 (11:51→12:36)
[2024-03-13] MEDS ORDERED: fentaNYL 100 mcg/2 ml 50 MCG/ML VIAL IV SLOW PU PRN (12:22)
[2024-03-13] MEDS ORDERED: Midazolam 2 mg/2 ml VIAL 1 mg/ml 2 ml VIAL (2 mg) IV SLOW PU PRN (12:22)
[2024-03-13 12:30] LABS: Phosphorus 3.3 mg/dL (2.5-5.0); Potassium 4.3 mmol/L (3.5-5.0)
[2024-03-13] MEDS: Morphine 2 MG/ML SYRINGE IV PRN (13:26)
[2024-03-14 05:04] LABS: Hemoglobin 9.2 g/dL (11.5-14.3); Mean Corpuscular Hemoglobin 27.2 pg (27-33); Mean Corpuscular Hgb Conc 32.8 g/dL (31-36); Mean Corpuscular Volume 82.9 fL (80-97); Platelet Count 333 10^3/uL (150-450); Red Blood Count 3.37 10^6/uL (3.63-4.92); Red Cell Distribution Width 14.1 % (12-17); White Blood Count 29.1 10^3/uL (3.8-11.8)
[2024-03-14 05:08] LABS: ABS Lymphocytes 0.8 10^3/uL (1.0-4.8); ABS Neutrophils 27.2 10^3/uL (1.5-7.6); Lymphocyte % 2.7 %
[2024-03-14 05:46] LABS: Albumin 2.5 g/dL (3.2-5.2); Albumin/Globulin Ratio 1.3 (1-3); Calcium 7.6 mg/dL (8.6-10.3); Creatinine, Serum 0.77 mg/dL (0.51-0.95); Globulin 1.9 g/dL (2-4); Magnesium 2.7 mg/dL (1.9-2.7); Phosphorus 3.5 mg/dL (2.5-5.0); Potassium 4.1 mmol/L (3.5-5.0); Total Bilirubin 0.9 mg/dL (0.2-1.0); Total Protein 4.4 g/dL (6.4-8.9); eGFR CKD-EPI 79.9 (>60)
[2024-03-14] MEDS: Metoprolol Tartrate 5 mg VIAL 5 ml VIAL (1 mg/ml) IV PRN ×2 (18:38→23:01)
[2024-03-14] MEDS: Metoprolol Tartrate 5 mg VIAL 5 ml VIAL (1 mg/ml) ONE (18:42)
[2024-03-14] MEDS: Metoprolol Tartrate 5 mg VIAL 5 ml VIAL (1 mg/ml) IV ONE (19:25)
[2024-03-14] MEDS: Enoxaparin 80 MG/0.8 ML SYR SUBCUT ONE (20:53)
[2024-03-14] MEDS ORDERED: Metoprolol Tartrate 5 mg VIAL 5 ml VIAL (1 mg/ml) IV PRN (21:39)
[2024-03-15 06:27] LABS: Hemoglobin 9.7 g/dL (11.5-14.3); Mean Corpuscular Hemoglobin 27.2 pg (27-33); Mean Corpuscular Hgb Conc 32.5 g/dL (31-36); Mean Corpuscular Volume 83.8 fL (80-97); Platelet Count 394 10^3/uL (150-450); Red Blood Count 3.57 10^6/uL (3.63-4.92); Red Cell Distribution Width 14.5 % (12-17); White Blood Count 24.8 10^3/uL (3.8-11.8)
[2024-03-15 06:30] LABS: ABS Basophils 0.3 10^3/uL (0.0-0.1); ABS Eosinophils 0.1 10^3/uL (0.0-0.5); ABS Lymphocytes 1.1 10^3/uL (1.0-4.8); ABS Monocytes 0.8 10^3/uL (0.0-0.9); ABS Neutrophils 22.5 10^3/uL (1.5-7.6); ABS Nucleated RBC 0.01 10^3/ul; Eosinophil % 0.4 %; Lymphocyte % 4.3 %
[2024-03-15 06:42] LABS: Calcium 7.6 mg/dL (8.6-10.3); Creatinine, Serum 0.64 mg/dL (0.51-0.95); Magnesium 2.1 mg/dL (1.9-2.7); Phosphorus 2.3 mg/dL (2.5-5.0); Potassium 3.9 mmol/L (3.5-5.0); eGFR CKD-EPI 91.5 (>60)
[2024-03-15] MEDS: Furosemide 20 mg/2 ml IV VIAL IV ONE (10:25)
[2024-03-15] MEDS: Enoxaparin 80 MG/0.8 ML SYR SUBCUT SCH (10:26)
[2024-03-16] MEDS: Lactated Ringers 1000 ml BAG 1,000 ML IV SCH (03:59)
[2024-03-16] MEDS: Metoprolol Tartrate 5 mg VIAL 5 ml VIAL (1 mg/ml) IV ONE (08:51)
[2024-03-16] MEDS: Metoprolol Tartrate 5 mg VIAL 5 ml VIAL (1 mg/ml) ONE (08:51)
[2024-03-16 09:24] LABS: ABS Basophils 0.1 10^3/uL (0.0-0.1); ABS Eosinophils 0.1 10^3/uL (0.0-0.5); ABS Monocytes 0.8 10^3/uL (0.0-0.9); Eosinophil % 0.7 %; Hematocrit 32.2 % (35-45); Hemoglobin 10.4 g/dL (11.5-14.3); Lymphocyte % 5.3 %; Mean Corpuscular Hemoglobin 27.1 pg (27-33); Mean Corpuscular Hgb Conc 32.3 g/dL (31-36); Mean Corpuscular Volume 83.9 fL (80-97); Mean Platelet Volume 7.4 fL (7.5-11.2); Platelet Count 401 10^3/uL (150-450); Red Blood Count 3.84 10^6/uL (3.63-4.92); Red Cell Distribution Width 14.6 % (12-17); White Blood Count 17.9 10^3/uL (3.8-11.8)
[2024-03-17] MEDS: Metoprolol Tartrate 5 mg VIAL 5 ml VIAL (1 mg/ml) IV PRN (01:15)
[2024-03-17 06:17] LABS: Calcium 7.3 mg/dL (8.6-10.3); Creatinine, Serum 0.55 mg/dL (0.51-0.95); Potassium 3.7 mmol/L (3.5-5.0); eGFR CKD-EPI 94.9 (>60)
[2024-03-17 06:23] LABS: ABS Eosinophils 0.1 10^3/uL (0.0-0.5); ABS Lymphocytes 1.2 10^3/uL (1.0-4.8); ABS Monocytes 1.2 10^3/uL (0.0-0.9); ABS Neutrophils 14.7 10^3/uL (1.5-7.6); ABS Nucleated RBC 0.01 10^3/ul; Eosinophil % 0.8 %; Hematocrit 31.9 % (35-45); Hemoglobin 10.2 g/dL (11.5-14.3); Lymphocyte % 7.2 %; Mean Corpuscular Volume 84.4 fL (80-97); Nucleated Red Blood Cells % 0.1 %/100WBC (0.0-0.8); Platelet Count 417 10^3/uL (150-450); Red Blood Count 3.78 10^6/uL (3.63-4.92); Red Cell Distribution Width 14.4 % (12-17); White Blood Count 17.3 10^3/uL (3.8-11.8)
[2024-03-17] MEDS: Digoxin IV 0.5 MG/2 ML AMP (0.25 MG/ML) IV SLOW PU ONE (07:57)
[2024-03-17] MEDS: NS 0.9% 500 ml BAG 500 ML IV ONE (08:51)
[2024-03-17] MEDS: ZOSYN 3.375 GM Q8H per EXTENDED INFUSION IV SCH (11:31)
[2024-03-17] MEDS: Metoprolol Tartrate 5 mg VIAL 5 ml VIAL (1 mg/ml) IV ONE (14:50)
[2024-03-18] MEDS: HYDROmorphone 0.5 MG/0.5 ML SYRINGE IV SLOW PU ONE (09:30)
[2024-03-18] MEDS: Lactated Ringers 1000 ml BAG 1,000 ML IV ONE ×2 (18:22→20:38)
[2024-03-18] MEDS: Iohexol 350 (CONTRAST) 500 ML MDV IV ONE (18:41)
[2024-03-18 18:45] LABS: Hematocrit 38.1 % (35-45); Hemoglobin 11.9 g/dL (11.5-14.3); Mean Corpuscular Hemoglobin 26.4 pg (27-33); Mean Corpuscular Hgb Conc 31.2 g/dL (31-36); Mean Corpuscular Volume 84.9 fL (80-97); Mean Platelet Volume 8.3 fL (7.5-11.2); Platelet Count 572 10^3/uL (150-450); Red Blood Count 4.49 10^6/uL (3.63-4.92); Red Cell Distribution Width 14.8 % (12-17); White Blood Count 27.8 10^3/uL (3.8-11.8)
[2024-03-18 18:51] LABS: ABS Lymphocytes 0.6 10^3/uL (1.0-4.8); ABS Monocytes 0.5 10^3/uL (0.0-0.9); ABS Neutrophils 26.7 10^3/uL (1.5-7.6); Lymphocyte % 2.2 %
[2024-03-18 19:04] LABS: Albumin 2.3 g/dL (3.2-5.2); Calcium 7.5 mg/dL (8.6-10.3); Creatinine, Serum 0.83 mg/dL (0.51-0.95); Globulin 2.4 g/dL (2-4); Magnesium 1.5 mg/dL (1.9-2.7); Potassium 3.9 mmol/L (3.5-5.0); Total Bilirubin 1.2 mg/dL (0.2-1.0); Total Protein 4.7 g/dL (6.4-8.9); eGFR CKD-EPI 72.6 (>60)
[2024-03-18] MEDS: Morphine 2 MG/ML SYRINGE IV ONE (20:06)
[2024-03-18 21:13] LABS: Urine Appearance Extra Turbid; Urine Bacteria Absent /HPF (Absent); Urine Bilirubin Negative (Negative); Urine Blood 3+ (Negative); Urine Color Yellow; Urine Glucose Negative (Negative); Urine Ketones Trace (Negative); Urine Nitrite Negative (Negative); Urine Protein 1+ (>=30 mg/dL) (Negative); Urine Red Blood Cell 3+(>10/hpf) /HPF (0-Trace); Urine Specific Gravity >1.050 (1.002-1.030); Urine Squamous Epithelial Cell Present /HPF (Absent); Urine Urobilinogen Negative (Negative); Urine White Blood Cell 3+(>20/hpf) /HPF (0-Trace); Urine pH 6.5 (5.0-8.0)
[2024-03-18] MEDS: Lactated Ringers 1000 ml BAG 1,000 ML IV SCH (22:04)
[2024-03-18] MEDS: Magnesium Sulfate 2 gm BAG 2 GM/50 ML BAG IVPB ONE (22:09)
[2024-03-18] MEDS: Morphine 2 MG/ML SYRINGE IV PRN (23:44)
[2024-03-18] MEDS: Magnesium Sulfate IV 1GM/100ML 1 GM/100 ML BAG IV ONE (23:47)
[2024-03-19] MEDS ORDERED: Vancomycin 1,000 MG in NS 0.9% 250 ml 250 ML IVPB SCH (00:25)
[2024-03-19] MEDS: NS 0.9% 1000 ml BAG 1,000 ML IV SCH (01:21)
[2024-03-19] MEDS: Vancomycin 1,000 MG - ED ONCE IVPB ONE (01:22)
[2024-03-19] MEDS: ZOSYN 3.375 GM Q8H per EXTENDED INFUSION IV SCH (04:19)
[2024-03-19 04:40] LABS: Hematocrit 34.2 % (35-45); Hemoglobin 10.9 g/dL (11.5-14.3); Mean Corpuscular Hemoglobin 26.6 pg (27-33); Mean Corpuscular Hgb Conc 31.7 g/dL (31-36); Mean Corpuscular Volume 83.8 fL (80-97); Mean Platelet Volume 8.4 fL (7.5-11.2); Platelet Count 547 10^3/uL (150-450); Red Blood Count 4.08 10^6/uL (3.63-4.92); Red Cell Distribution Width 14.7 % (12-17); White Blood Count 37.5 10^3/uL (3.8-11.8)
[2024-03-19 04:44] LABS: ABS Lymphocytes 0.9 10^3/uL (1.0-4.8); ABS Monocytes 0.9 10^3/uL (0.0-0.9); ABS Neutrophils 35.6 10^3/uL (1.5-7.6); Lymphocyte % 2.5 %
[2024-03-19 05:13] LABS: Calcium 7.2 mg/dL (8.6-10.3); Creatinine, Serum 0.95 mg/dL (0.51-0.95); Magnesium 2.4 mg/dL (1.9-2.7); Potassium 4.3 mmol/L (3.5-5.0); eGFR CKD-EPI 61.7 (>60)
[2024-03-19] MEDS ORDERED: Vancomycin per Pharmacy 1 EA NOTE FOLLOW UP PRN (06:05)
[2024-03-19] MEDS: Vancomycin Random Level NOTE FOLLOW UP ONE (09:39)
[2024-03-19] MEDS ORDERED: Lactated Ringers 1000 ml BAG 1,000 ML IV SCH (10:00)
[2024-03-19] MEDS: NS 0.9% 500 ml BAG 500 ML IV ONE (14:28)
[2024-03-19] MEDS: Metoprolol Tartrate 5 mg VIAL 5 ml VIAL (1 mg/ml) IV ONE ×2 (17:39→22:18)
[2024-03-19] MEDS: NS 0.9% 1000 ml BAG 1,000 ML IV ONE (17:39)
[2024-03-19] MEDS: Vancomycin 1,250 MG in NS 0.9% 250 ml 250 ML IVPB SCH (20:48)
[2024-03-20 10:12] LABS: Hematocrit 26.2 % (35-45); Hemoglobin 8.2 g/dL (11.5-14.3); Mean Corpuscular Hemoglobin 26.2 pg (27-33); Mean Corpuscular Hgb Conc 31.4 g/dL (31-36); Mean Corpuscular Volume 83.6 fL (80-97); Mean Platelet Volume 8.3 fL (7.5-11.2); Platelet Count 431 10^3/uL (150-450); Red Blood Count 3.14 10^6/uL (3.63-4.92); Red Cell Distribution Width 14.8 % (12-17); White Blood Count 35.8 10^3/uL (3.8-11.8)
[2024-03-20 10:17] LABS: ABS Basophils 0.1 10^3/uL (0.0-0.1); ABS Eosinophils 0.1 10^3/uL (0.0-0.5); ABS Lymphocytes 0.4 10^3/uL (1.0-4.8); ABS Monocytes 0.7 10^3/uL (0.0-0.9); ABS Neutrophils 34.5 10^3/uL (1.5-7.6); Eosinophil % 0.2 %; Lymphocyte % 1.2 %
[2024-03-20 10:47] LABS: Calcium 6.7 mg/dL (8.6-10.3); Creatinine, Serum 0.81 mg/dL (0.51-0.95); Potassium 3.9 mmol/L (3.5-5.0); eGFR CKD-EPI 74.7 (>60)
[2024-03-20] MEDS: Furosemide 20 mg/2 ml IV VIAL IV SLOW PU ONE (23:54)
[2024-03-21] MEDS: Vancomycin 750 MG in NS 0.9% 250 ML IVPB SCH (08:57)
[2024-03-21 09:12] LABS: Hemoglobin 8.5 g/dL (11.5-14.3); Mean Corpuscular Hemoglobin 26.7 pg (27-33); Mean Corpuscular Hgb Conc 32.5 g/dL (31-36); Mean Corpuscular Volume 82.3 fL (80-97); Mean Platelet Volume 8.1 fL (7.5-11.2); Platelet Count 453 10^3/uL (150-450); Red Blood Count 3.16 10^6/uL (3.63-4.92); Red Cell Distribution Width 14.8 % (12-17); White Blood Count 28.6 10^3/uL (3.8-11.8)
[2024-03-21 09:32] LABS: ABS Basophils 0.1 10^3/uL (0.0-0.1); ABS Eosinophils 0.1 10^3/uL (0.0-0.5); ABS Lymphocytes 1.2 10^3/uL (1.0-4.8); ABS Monocytes 0.8 10^3/uL (0.0-0.9); ABS Neutrophils 26.4 10^3/uL (1.5-7.6); Eosinophil % 0.3 %
[2024-03-21 09:40] LABS: Anion Gap 11 mmol/L (2-16); Blood Urea Nitrogen 20 mg/dL (6-24); CO2 Carbon Dioxide 20 mmol/L (22-32); Calcium 6.7 mg/dL (8.6-10.3); Chloride 107 mmol/L (101-111); Cholesterol 109 mg/dL; Creatinine, Serum 0.88 mg/dL (0.51-0.95); Glucose 104 mg/dL (70-100); HDL Cholesterol < 4.2 mg/dL; LDL Cholesterol 29 mg/dL; Magnesium 1.9 mg/dL (1.9-2.7); Potassium 3.5 mmol/L (3.5-5.0); Sodium 138 mmol/L (135-145); Triglycerides 381 mg/dL; eGFR CKD-EPI 67.6 (>60)
[2024-03-21] MEDS: Vancomycin Random Level NOTE FOLLOW UP ONE (10:18)
[2024-03-21] MEDS: Furosemide 20 mg/2 ml IV VIAL IV SLOW PU ONE (14:27)
[2024-03-22] MEDS: Furosemide 40 mg/4 ml IV VIAL IV SLOW PU ONE (06:02)
[2024-03-22 09:48] LABS: ABS Eosinophils 0.1 10^3/uL (0.0-0.5); ABS Lymphocytes 0.6 10^3/uL (1.0-4.8); ABS Monocytes 1.1 10^3/uL (0.0-0.9); ABS Neutrophils 18.7 10^3/uL (1.5-7.6); ABS Nucleated RBC 0.01 10^3/ul; Eosinophil % 0.4 %; Hematocrit 27.7 % (35-45); Hemoglobin 9.1 g/dL (11.5-14.3); Mean Corpuscular Hemoglobin 27.1 pg (27-33); Mean Corpuscular Hgb Conc 32.8 g/dL (31-36); Mean Corpuscular Volume 82.6 fL (80-97); Mean Platelet Volume 8.4 fL (7.5-11.2); Platelet Count 475 10^3/uL (150-450); Red Blood Count 3.35 10^6/uL (3.63-4.92); Red Cell Distribution Width 14.9 % (12-17); White Blood Count 20.5 10^3/uL (3.8-11.8)
[2024-03-22 10:12] LABS: Calcium 6.9 mg/dL (8.6-10.3); Creatinine, Serum 1.06 mg/dL (0.51-0.95); Magnesium 1.7 mg/dL (1.9-2.7); Potassium 3.7 mmol/L (3.5-5.0); eGFR CKD-EPI 54.1 (>60)
[2024-03-22] MEDS: Vancomycin Trough Check NOTE FOLLOW UP ONE (10:43)
[2024-03-22] MEDS: Magnesium Sulfate 2 gm BAG 2 GM/50 ML BAG IVPB ONE (12:00)
[2024-03-22] MEDS ORDERED: Amoxicillin/Clavul 875/125 TAB (Augmentin 875 tab) PO SCH (21:00)
[2024-03-22] MEDS: Amoxicillin/Clavul 500/125 TAB (Augmentin 500 mg tab) PO SCH (21:45)
[2024-03-22] MEDS: Amoxicillin/Clavul ORALSYR 80 MG/ML (400 MG/5 ML) PO SCH (22:13)
[2024-03-23] MEDS ORDERED: Vancomycin Random Level NOTE FOLLOW UP ONE (06:00)
[2024-03-23 08:35] LABS: Anion Gap 11 mmol/L (2-16); Blood Urea Nitrogen 21 mg/dL (6-24); CO2 Carbon Dioxide 19 mmol/L (22-32); Calcium 7.3 mg/dL (8.6-10.3); Chloride 106 mmol/L (101-111); Creatinine, Serum 1.02 mg/dL (0.51-0.95); Glucose 105 mg/dL (70-100); Sodium 136 mmol/L (135-145); eGFR CKD-EPI 56.7 (>60)
[2024-03-23 08:39] LABS: High Sens Troponin Baseline 250 pg/mL (<15)
[2024-03-23 09:45] LABS: High Sensitivity Troponin 1 Hr 276 pg/mL (<15)
[2024-03-23 10:22] LABS: Potassium, Whole Blood 3.5 mmol/L (3.4-4.5)
[2024-03-23 10:53] LABS: ABS Basophils 0.2 10^3/uL (0.0-0.1); ABS Eosinophils 0.1 10^3/uL (0.0-0.5); ABS Lymphocytes 0.5 10^3/uL (1.0-4.8); ABS Monocytes 1.2 10^3/uL (0.0-0.9); ABS Nucleated RBC 0.01 10^3/ul; Eosinophil % 0.9 %; Hematocrit 28.7 % (35-45); Hemoglobin 8.8 g/dL (11.5-14.3); Lymphocyte % 3.1 %; Mean Corpuscular Hemoglobin 25.9 pg (27-33); Mean Corpuscular Hgb Conc 30.7 g/dL (31-36); Mean Corpuscular Volume 84.3 fL (80-97); Mean Platelet Volume 8.6 fL (7.5-11.2); Nucleated Red Blood Cells % 0.1 %/100WBC (0.0-0.8); Platelet Count 457 10^3/uL (150-450); Red Cell Distribution Width 15.3 % (12-17); White Blood Count 14.9 10^3/uL (3.8-11.8)
[2024-03-23] MEDS ORDERED: Heparin 5000 UNITS/ML 1 mL VIAL IV SCH (11:00)
[2024-03-23] MEDS: Heparin DRIP 25,000 UNITS BAG 25,000 UNITS/250 ML BAG IV SCH (11:10)
[2024-03-23 11:23] LABS: Creatinine, Serum 1.01 mg/dL (0.51-0.95); eGFR CKD-EPI 57.3 (>60)
[2024-03-23] MEDS: Furosemide 40 mg/4 ml IV VIAL IV SLOW PU ONE (22:00)
[2024-03-23] MEDS: Furosemide 40 mg/4 ml IV VIAL ONE (22:00)
[2024-03-23] MEDS: Albuterol/Ipratropium NEB.SOL (2.5/0.5 MG) 3 ML NEB.SOLN ONE (22:38)
[2024-03-23 22:44] LABS: PCO2 Arterial 48 mmHg (35-45)
[2024-03-23 22:46] LABS: PO2 Arterial 57 mmHg (80-100)
[2024-03-23] MEDS: Albumin Human 5% 12.5 GM/250 ML BTL IV ONE (23:32)
[2024-03-23] MEDS: Albuterol/Ipratropium NEB.SOL (2.5/0.5 MG) 3 ML NEB.SOLN INH ONE (23:42)
[2024-03-23] MEDS: Morphine 2 MG/ML SYRINGE ONE (23:44)
[2024-03-24 00:01] LABS: PCO2 Arterial 33 mmHg (35-45); PO2 Arterial 102 mmHg (80-100)
[2024-03-24] MEDS: Norepinephrine 4 MG/250mL D5W 4,000 MCG/250 ML BAG IV SCH (01:13)
[2024-03-24] MEDS: Albumin Human 5% 12.5 GM/250 ML BTL IV ONE (02:27)
[2024-03-24 06:15] LABS: Hematocrit 26.4 % (35-45); Hemoglobin 8.6 g/dL (11.5-14.3); Mean Corpuscular Hgb Conc 32.6 g/dL (31-36); Mean Corpuscular Volume 82.7 fL (80-97); Mean Platelet Volume 8.5 fL (7.5-11.2); Platelet Count 461 10^3/uL (150-450); Red Blood Count 3.19 10^6/uL (3.63-4.92); Red Cell Distribution Width 14.9 % (12-17); White Blood Count 14.8 10^3/uL (3.8-11.8)
[2024-03-24 07:09] LABS: Calcium 7.2 mg/dL (8.6-10.3); Creatinine, Serum 0.94 mg/dL (0.51-0.95); Magnesium 1.8 mg/dL (1.9-2.7); Potassium 3.9 mmol/L (3.5-5.0); eGFR CKD-EPI 62.5 (>60)
[2024-03-24 07:29] LABS: ABS Basophils 0.1 10^3/uL (0.0-0.1); ABS Eosinophils 0.1 10^3/uL (0.0-0.5); ABS Lymphocytes 0.7 10^3/uL (1.0-4.8); ABS Monocytes 1.3 10^3/uL (0.0-0.9); ABS Neutrophils 12.7 10^3/uL (1.5-7.6); ABS Nucleated RBC 0.01 10^3/ul; Eosinophil % 0.4 %; RBC Morphology Normal (Normal)
[2024-03-24] MEDS: Atropine 0.1 MG/ML 10 ml SYR (1 mg) ONE (07:59)
[2024-03-24] MEDS: Furosemide 40 mg/4 ml IV VIAL IV ONE (08:47)
[2024-03-24] MEDS: Bumetanide IV 0.25 MG/ML 4 ml VIAL (1 mg) IV SLOW PU ONE (10:16)
[2024-03-24] MEDS: Bumetanide IV 0.25 MG/ML 4 ml VIAL (1 mg) ONE (11:06)
[2024-03-24 18:47] LABS: Calcium 7.3 mg/dL (8.6-10.3); Creatinine, Serum 0.96 mg/dL (0.51-0.95); Potassium 3.6 mmol/L (3.5-5.0); eGFR CKD-EPI 60.9 (>60)
[2024-03-25] MEDS: Morphine 2 MG/ML SYRINGE IV PRN (02:08)
[2024-03-25 05:53] LABS: Hematocrit 25.3 % (35-45); Hemoglobin 8.3 g/dL (11.5-14.3); Mean Corpuscular Hemoglobin 26.8 pg (27-33); Mean Corpuscular Hgb Conc 32.8 g/dL (31-36); Mean Corpuscular Volume 81.9 fL (80-97); Mean Platelet Volume 8.4 fL (7.5-11.2); Platelet Count 496 10^3/uL (150-450); Red Blood Count 3.09 10^6/uL (3.63-4.92); Red Cell Distribution Width 14.9 % (12-17)
[2024-03-25 06:56] LABS: Anion Gap 6 mmol/L (2-16); Blood Urea Nitrogen 16 mg/dL (6-24); CO2 Carbon Dioxide 28 mmol/L (22-32); Calcium 7.2 mg/dL (8.6-10.3); Chloride 104 mmol/L (101-111); Creatinine, Serum 0.86 mg/dL (0.51-0.95); Glucose 102 mg/dL (70-100); Magnesium 1.5 mg/dL (1.9-2.7); Sodium 138 mmol/L (135-145); eGFR CKD-EPI 69.5 (>60)
[2024-03-25] MEDS: Magnesium Sulfate 2 gm BAG 2 GM/50 ML BAG IVPB ONE (07:55)
[2024-03-25 08:22] LABS: ABS Basophils 0.2 10^3/uL (0.0-0.1); ABS Eosinophils 0.1 10^3/uL (0.0-0.5); ABS Lymphocytes 0.9 10^3/uL (1.0-4.8); ABS Monocytes 1.2 10^3/uL (0.0-0.9); ABS Neutrophils 15.7 10^3/uL (1.5-7.6); ABS Nucleated RBC 0.01 10^3/ul; Eosinophil % 0.6 %; Lymphocyte % 4.9 %; RBC Morphology Normal (Normal)
[2024-03-25 09:18] LABS: Potassium, Whole Blood 3.3 mmol/L (3.4-4.5)
[2024-03-25] MEDS: Bumetanide IV 0.25 MG/ML 4 ml VIAL (1 mg) IV SLOW PU ONE (10:33)
[2024-03-25] MEDS: Magnesium Sulfate IV 1GM/100ML 1 GM/100 ML BAG IV ONE (10:33)
[2024-03-25] MEDS: Potassium Chlor 20 meq TAB.ER PO ONE (10:33)
[2024-03-26 07:37] LABS: Hematocrit 26.1 % (35-45); Hemoglobin 8.4 g/dL (11.5-14.3); Mean Corpuscular Hemoglobin 26.8 pg (27-33); Mean Corpuscular Hgb Conc 32.1 g/dL (31-36); Mean Corpuscular Volume 83.5 fL (80-97); Mean Platelet Volume 7.9 fL (7.5-11.2); Platelet Count 470 10^3/uL (150-450); Red Blood Count 3.12 10^6/uL (3.63-4.92); Red Cell Distribution Width 15.2 % (12-17)
[2024-03-26 08:14] LABS: Calcium 7.3 mg/dL (8.6-10.3); Creatinine, Serum 0.9 mg/dL (0.51-0.95); Phosphorus 3.3 mg/dL (2.5-5.0); Potassium 3.7 mmol/L (3.5-5.0); eGFR CKD-EPI 65.8 (>60)
[2024-03-26 09:04] LABS: ABS Basophils 0.1 10^3/uL (0.0-0.1); ABS Eosinophils 0.3 10^3/uL (0.0-0.5); ABS Lymphocytes 0.9 10^3/uL (1.0-4.8); ABS Monocytes 1.3 10^3/uL (0.0-0.9); ABS Neutrophils 23.4 10^3/uL (1.5-7.6); ABS Nucleated RBC 0.01 10^3/ul; Lymphocyte % 3.5 %
[2024-03-26] MEDS: Bumetanide IV 0.25 MG/ML 4 ml VIAL (1 mg) IV SLOW PU ONE (17:13)
[2024-03-26] MEDS: Potassium Chlor 20 meq TAB.ER PO ONE (17:48)
[2024-03-26] MEDS: Potassium Chloride LIQUID 20 MEQ/15 ML LIQUID PO ONE (18:04)
[2024-03-26 18:27] LABS: Urine Appearance Clear; Urine Bilirubin Negative (Negative); Urine Blood 1+ (Negative); Urine Color Colorless; Urine Glucose Negative (Negative); Urine Ketones Negative (Negative); Urine Nitrite Negative (Negative); Urine Protein Negative (Negative); Urine Specific Gravity 1.006 (1.002-1.030); Urine Urobilinogen Negative (Negative); Urine pH 5.5 (5.0-8.0)
[2024-03-26 19:18] LABS: Urine Bacteria 1+ /HPF (Absent); Urine Red Blood Cell 1+(3-5/hpf) /HPF (0-Trace); Urine Squamous Epithelial Cell Present /HPF (Absent); Urine White Blood Cell Trace(0-5/hpf) /HPF (0-Trace)
[2024-03-27 06:52] LABS: Hematocrit 25.1 % (35-45); Hemoglobin 8.2 g/dL (11.5-14.3); Mean Corpuscular Hemoglobin 26.7 pg (27-33); Mean Corpuscular Hgb Conc 32.7 g/dL (31-36); Mean Corpuscular Volume 81.8 fL (80-97); Mean Platelet Volume 8.1 fL (7.5-11.2); Platelet Count 534 10^3/uL (150-450); Red Blood Count 3.07 10^6/uL (3.63-4.92); Red Cell Distribution Width 14.8 % (12-17); White Blood Count 29.3 10^3/uL (3.8-11.8)
[2024-03-27 07:27] LABS: Calcium 7.5 mg/dL (8.6-10.3); Creatinine, Serum 0.91 mg/dL (0.51-0.95); Magnesium 1.7 mg/dL (1.9-2.7); Phosphorus 3.5 mg/dL (2.5-5.0); Potassium 3.7 mmol/L (3.5-5.0)
[2024-03-27 09:22] LABS: ABS Basophils 0.1 10^3/uL (0.0-0.1); ABS Eosinophils 0.3 10^3/uL (0.0-0.5); ABS Monocytes 1.5 10^3/uL (0.0-0.9); ABS Neutrophils 26.3 10^3/uL (1.5-7.6); ABS Nucleated RBC 0.01 10^3/ul; Eosinophil % 0.9 %; Lymphocyte % 3.6 %; RBC Morphology Normal (Normal)
[2024-03-27] MEDS: Magnesium Sulfate 2 gm BAG 2 GM/50 ML BAG IVPB ONE (09:23)
[2024-03-27] MEDS: Furosemide 20 mg/2 ml IV VIAL IV SLOW PU SCH (09:29)
[2024-03-27] MEDS: Potassium Chloride LIQUID 20 MEQ/15 ML LIQUID PO ONE (20:59)
[2024-03-28 06:39] LABS: Hematocrit 25.9 % (35-45); Hemoglobin 8.3 g/dL (11.5-14.3); Mean Corpuscular Hemoglobin 26.2 pg (27-33); Mean Corpuscular Hgb Conc 32.1 g/dL (31-36); Mean Corpuscular Volume 81.6 fL (80-97); Mean Platelet Volume 8.1 fL (7.5-11.2); Platelet Count 573 10^3/uL (150-450); Red Blood Count 3.17 10^6/uL (3.63-4.92); Red Cell Distribution Width 14.8 % (12-17); White Blood Count 23.2 10^3/uL (3.8-11.8)
[2024-03-28 06:56] LABS: Calcium 7.5 mg/dL (8.6-10.3); Creatinine, Serum 0.85 mg/dL (0.51-0.95); Potassium 3.7 mmol/L (3.5-5.0); eGFR CKD-EPI 70.5 (>60)
[2024-03-28 08:26] LABS: ABS Basophils 0.3 10^3/uL (0.0-0.1); ABS Eosinophils 0.2 10^3/uL (0.0-0.5); ABS Lymphocytes 1.2 10^3/uL (1.0-4.8); ABS Monocytes 1.5 10^3/uL (0.0-0.9); ABS Neutrophils 20.1 10^3/uL (1.5-7.6); ABS Nucleated RBC 0.01 10^3/ul; Eosinophil % 0.9 %
[2024-03-28] MEDS: Magnesium Sulfate IV 1GM/100ML 1 GM/100 ML BAG IV ONE (09:05)
[2024-03-28] MEDS: Potassium Chloride LIQUID 20 MEQ/15 ML LIQUID PO ONE (09:05)
[2024-03-28] MEDS: Furosemide 20 mg/2 ml IV VIAL IV SLOW PU SCH (20:48)
[2024-03-29 06:30] LABS: Hematocrit 24.4 % (35-45); Hemoglobin 8.1 g/dL (11.5-14.3); Mean Corpuscular Hemoglobin 26.7 pg (27-33); Mean Corpuscular Hgb Conc 33.1 g/dL (31-36); Mean Corpuscular Volume 80.8 fL (80-97); Mean Platelet Volume 8.3 fL (7.5-11.2); Platelet Count 587 10^3/uL (150-450); Red Blood Count 3.02 10^6/uL (3.63-4.92); White Blood Count 23.1 10^3/uL (3.8-11.8)
[2024-03-29 06:40] LABS: Calcium 7.4 mg/dL (8.6-10.3); Creatinine, Serum 0.89 mg/dL (0.51-0.95); Magnesium 1.8 mg/dL (1.9-2.7); Potassium 3.4 mmol/L (3.5-5.0); eGFR CKD-EPI 66.7 (>60)
[2024-03-29 06:41] LABS: ABS Basophils 0.1 10^3/uL (0.0-0.1); ABS Eosinophils 0.2 10^3/uL (0.0-0.5); ABS Lymphocytes 1.2 10^3/uL (1.0-4.8); ABS Monocytes 1.8 10^3/uL (0.0-0.9); ABS Neutrophils 19.7 10^3/uL (1.5-7.6); ABS Nucleated RBC 0.01 10^3/ul; Eosinophil % 0.8 %; Lymphocyte % 5.4 %
[2024-03-29] MEDS ORDERED: Morphine ORAL CONCENTRATE 5 MG/0.25 ML ORAL.SYRIN PO PRN (11:04)
[2024-03-29] MEDS ORDERED: Atropine 1% (ORAL/SL) 15 ML BTL SL PRN (11:04)
[2024-03-29] MEDS: Magnesium Sulfate 2 gm BAG 2 GM/50 ML BAG IVPB ONE (12:44)
[2024-03-29] MEDS: Potassium Chlor 20 meq TAB.ER PO ONE (12:44)
[2024-03-30 09:18] VITALS: BP 127/51
== END 2024-03-30 10:15 | disposition hospice, inpatient (51) | DRG 329 ==
LOC: EDHOLD 04:48 → ED 04:48 → SUATTDRO 08:12 → OBSVTOIN 08:12 → MEDTELE 14:11 → ICU 03-12 18:56 → SSU 03-14 17:48 → MEDTELE 03-14 20:26 → ICU 03-23 23:12 → MED 03-25 12:49
PROVIDERS: ADMIT Hospitalist; ATTEND Student in an Organized Health Care Education/Training Program